=== PATIENT | female | born 1945 | race Caucasian/White ===

== ENCOUNTER 2017-01-18 11:28 | Emergency (ER) | payer OTHER ==
[2017-01-18 11:43] VITALS: TEMP 97.3; BMI 39.4
--- NOTE | 2017-01-18 11:51 | PDOC ---
History of Present Illness <Imtiaz Sharp - Last Filed: 01/18/17 14:06> - History of Present Illness Initial Comments: 01/18/17 13:16 The patient is a 71 year old female, with a significant past medical history of arthritis, who presents to the emergency department with pain to her right shoulder for 3 days. The patient states her pain radiates from her right shoulder to the lateral aspect of her right bicep. She reports pain with abduction and inability to raise her right arm above her head. She denies any trauma. She denies experiencing this shoulder pain in the past. The patient states she walks with a walker at baseline and reports taking 50mg of Toradol today with minimal alleviation of pain. She denies chest pain, shortness of breath, headache and dizziness. She denies fever, chills, nausea, vomit, diarrhea and constipation. She denies dysuria, frequency, urgency and hematuria. Allergies: PRINCESS inhibitors PCP - Dr. Connor <Lynette Nunez - Last Filed: 01/18/17 18:50> - General Chief Complaint: Pain, Acute Stated Complaint: Right arm pain/hx Arthritis Time Seen by Provider: 01/18/17 11:50 Past History - Past Medical History Anemia: No Asthma: No Cancer: No Cardiac Disorders: Yes (ANGINA) CVA: No COPD: Yes (DX 2005) CHF: No Dementia: No Diabetes: No GI Disorders: Yes (REFLUX) Disorders: Yes (FREQUENT UTI'S) HTN: Yes (DX 2005) Hypercholesterolemia: No Liver Disease: No Psychiatric Problems: Yes Seizures: No Thyroid Disease: No - Surgical History Abdominal Surgery: Yes Appendectomy: Yes (AT AGE 2) Cardiac Surgery: No Cholecystectomy: Yes (OPEN-1989') Lung Surgery: No Neurologic Surgery: No Orthopedic Surgery: Yes (LEFT ROTATOR CUFF-2013) - Immunization History Immunization Up to Date: Yes - Psycho/Social/Smoking Cessation Hx Anxiety: No Suicidal Ideation: No Smoking History: Never smoked Have you smoked in the past 12 months: No Number of Cigarettes Smoked Daily: 0 If you are a former smoker, when did you quit?: OVER 40 YRS AGO Information on smoking cessation initiated: No 'Breaking Loose' booklet given: 09/12/13 Hx Alcohol Use: No Drug/Substance Use Hx: No Substance Use Type: None Hx Substance Use Treatment: No <Imtiaz Sharp - Last Filed: 01/18/17 14:06> <Lynette Nunez - Last Filed: 01/18/17 18:50> - Past Medical History Allergies/Adverse Reactions: Allergies Allergy/AdvReac Type Severity Reaction Status Date / Time PRINCESS Inhibitors Allergy Severe TONGUE Verified 01/18/17 11:43 SWELLING, RASH Home Medications: Ambulatory Orders Aspirin Coated [Ecotrin -] 81 mg PO DAILY 09/11/13 Pramipexole Dihydrochloride [Mirapex -] 0.5 mg PO DAILY #0 tablet 09/14/13 Tramadol HCl 50 mg PO TID PRN 07/21/15 Meloxicam [Mobic -] 15 mg PO DAILY 10/19/15 Albuterol Sulfate Inhaler - [Ventolin HFA Inhaler -] 1 - 2 inh PO QID 04/17/16 Bisacodyl [Bisacodyl -] 5 mg PO ONCE 04/17/16 Acetaminophen [Tylenol .Regular Strength -] 650 mg PO Q4H PRN #0 tablet Atenolol/Chlorthalidone [Atenolol-Chlorthalidone 50-25] 0.5 tab PO DAILY #0 Budesonide/Formeterol Fumarate [SYMBICORT 160/4.5mcg -] 1 inh PO BID 01/18/17 Diphenhydramine [Benadryl -] 50 mg PO DAILY 01/18/17 Ondansetron [Zofran *Odt*] 8 mg SL TID #30 od.tablet 01/18/17 Oxycodone HCl/Acetaminophen [Percocet 5-325 mg Tablet] 1 tab PO Q6H #20 tablet MDD 4 01/18/17 Review of Systems - Review of Systems Able to Perform ROS?: Yes Comments:: 01/18/17 13:18 GENERAL/CONSTITUTIONAL: No fever or chills. No weakness. HEAD, EYES, EARS, NOSE AND THROAT: No change in vision. No ear pain or discharge. No sore throat. CARDIOVASCULAR: No chest pain or shortness of breath. RESPIRATORY: No cough, wheezing, or hemoptysis. GASTROINTESTINAL: No nausea, vomiting, diarrhea or constipation. GENITOURINARY: No dysuria, frequency, or change in urination. MUSCULOSKELETAL: (+) Right shoulder pain. No muscle swelling or pain. No neck or back pain. SKIN: No rash NEUROLOGIC: No headache, vertigo, loss of consciousness, or change in strength/ sensation. ENDOCRINE: No increased thirst. No abnormal weight change. HEMATOLOGIC/LYMPHATIC: No anemia, easy bleeding, or history of blood clots. ALLERGIC/IMMUNOLOGIC: No hives or skin allergy. <MayraLynette - Last Filed: 01/18/17 18:50> *Physical Exam - Vital Signs Last Vital Signs Temp Pulse Resp BP Pulse Ox 97.3 F L 63 18 161/87 98 01/18/17 11:41 01/18/17 11:41 01/18/17 11:41 01/18/17 11:41 01/18/17 11:41 <Imtiaz Sharp - Last Filed: 01/18/17 14:06> - Vital Signs Last Vital Signs Temp Pulse Resp BP Pulse Ox 97.3 F L 63 18 161/87 98 01/18/17 11:41 01/18/17 11:41 01/18/17 11:41 01/18/17 11:41 01/18/17 11:41 - Physical Exam Comments: 01/18/17 13:18 GENERAL: Awake, alert, and fully oriented, in no acute distress HEAD: No signs of trauma EYES: PERRLA, EOMI, sclera anicteric, conjunctiva clear ENT: Auricles normal inspection, hearing grossly normal, nares patent, oropharynx clear without exudates. Moist mucosa NECK: Normal ROM, supple, no lymphadenopathy, JVD, or masses LUNGS: Breath sounds equal, clear to auscultation bilaterally. No wheezes, and no crackles HEART: Regular rate and rhythm, normal S1 and S2, no murmurs, rubs or gallops ABDOMEN: Soft, nontender, normoactive bowel sounds. No guarding, no rebound. No masses EXTREMITIES: [+RUE: point tenderness to palpatation at the right shoulder joint. Pain with abduction of the RUE, inability to forward elevate the RUE. Internal Rotation to her side. no edema. No clubbing or cyanosis. No cords, erythema,] [LUE: Normal range of motion, no edema. No clubbing or cyanosis. No cords, erythema, or tenderness] NEUROLOGICAL: Cranial nerves II through XII grossly intact. Normal speech, normal gait with walker. SKIN: Warm, Dry, normal turgor, no rashes or lesions noted. <Lynette Nunez - Last Filed: 01/18/17 18:50> ED Treatment Course - RADIOLOGY Radiograph Interpretation: 01/18/17 18:50 Right shoulder Xray was read by Dr. Jackson at 13:32 Impression: No acute fracture, subluxation or bony abnormalities. <Lynette Nunez - Last Filed: 01/18/17 18:50> Medical Decision Making - Medical Decision Making 01/18/17 13:21 The patient is a 71 year old female who presents with right shoulder pain for 3 days. The patients medical history is significant for arthritis I will obtain RUE Xray to rule out any bony abnormalities such as acute fracture. If xrays appear normal, I will refer to orthopedist to obtain MRI r/o rotator cuff injury. <Lynette Nunez - Last Filed: 01/18/17 18:50> *DC/Admit/Observation/Transfer - Discharge Dispostion Admit: No - Attestations Physician Attestion: 01/18/17 11:51 I, Dr. Imtiaz Sharp, attest that this document has been prepared under my direction and personally reviewed by me in its entirety. I further attest, that it accurately reflects all work, treatment, procedures and medical decision -making performed by me. <Imtiaz Sharp - Last Filed: 01/18/17 14:06> - Attestations Scribe Attestion: 01/18/17 13:21 Documentation prepared by Lynette Nunez, acting as medical records secretary for Imtiaz Sharp MD <Lynette Nunez - Last Filed: 01/18/17 18:50> Diagnosis at time of Disposition: Bursitis Qualifiers: Bursitis location: shoulder Laterality: right Qualified Code(s): M75.51 - Bursitis of right shoulder - Discharge Dispostion Disposition: HOME Condition at time of disposition: Improved - Prescriptions Prescriptions: Oxycodone HCl/Acetaminophen [Percocet 5-325 mg Tablet] 1 tab PO Q6H #20 tablet MDD 4 Ondansetron [Zofran *Odt*] 8 mg SL TID #30 od.tablet - Referrals Referrals: Valente Connor MD [Primary Care Provider] - Vincent Alvarez MD [Staff Physician] - - Patient Instructions Printed Discharge Instructions: DI for Bursitis, Shoulder Tendinopathy Additional Instructions: Mrs Lyle see Dr Alvarez. Dont take tramadol and percocet, one or the other. Rest the shoulder as much as possible. Hope you feel better soon- Dr. Imtiaz Sharp
[2017-01-18] MEDS ORDERED: OXYCODONE/APAP 5/325MG COMBO TABLET PO ONE ×2 (12:47→14:34)
[2017-01-18] MEDS ORDERED: methylPREDNISolone ACET (DEPO) 80 MG/1 ML VIAL IM ONE ×2 (12:47→14:34)
[2017-01-18] MEDS ORDERED: ONDANSETRON *ODT* 4 MG TABLET SL ONE (12:48)
[2017-01-18] MEDS ORDERED: OXYCODONE/APAP 5/325MG COMBO TABLET ONE ×2 (13:22→14:46)
[2017-01-18] MEDS ORDERED: ONDANSETRON 8 MG TABLET (FP) PO ONE (13:22)
[2017-01-18] MEDS ORDERED: methylPREDNISolone NA SUCC 40 MG/1 ML VIAL ONE ×2 (13:23→14:47)
[2017-01-18 15:07] VITALS: BP 155/74; PULSE 70
== END 2017-01-18 15:06 | disposition home or self-care (01) ==
LOC: JER 11:28
PROC: 3E0233Z Introduction of Anti-inflammatory into Muscle, Percutaneous Approach (ICD-10-PCS; principal; 2017-01-18)
DX: M75.51 Bursitis of right shoulder (principal); M12.9 Arthropathy, unspecified; I10 Essential (primary) hypertension; J44.9 Chronic obstructive pulmonary disease, unspecified; K21.9 Gastro-esophageal reflux disease without esophagitis
CPT/HCPCS: 73030-TC-RT; 99283-25

== ENCOUNTER 2017-05-10 05:50 | Inpatient (IN) | payer OTHER ==
--- NOTE | 2017-05-09 09:22 | HP ---
Satellite H - Chief Complaint Chief Complaint: left knee pain - Past Medical History Allergies/Adverse Reactions: Allergies Allergy/AdvReac Type Severity Reaction Status Date / Time PRINCESS Inhibitors Allergy Severe TONGUE Verified 01/18/17 11:43 SWELLING, RASH Cardiovascular: Yes: HTN. No: AFIB, [place] - Current Medications Current Medications: Home Medications Medication Instructions Recorded Aspirin Coated [Ecotrin -] 81 mg PO DAILY 09/11/13 Tramadol HCl 50 mg PO TID PRN 07/21/15 Meloxicam [Mobic -] 15 mg PO DAILY 10/19/15 Albuterol Sulfate Inhaler - 1 - 2 inh PO QID 04/17/16 [Ventolin HFA Inhaler -] Bisacodyl [Bisacodyl -] 10 mg PO DAILY 04/17/16 Budesonide/Formeterol Fumarate 1 inh PO BID 01/18/17 [SYMBICORT 160/4.5mcg -] Albuterol Sulfate [Proair 90 mcg IH QID PRN 05/02/17 Respiclick] Docusate Sodium [Colace -] 100 mg PO BID 05/02/17 Fluticasone Prop 0.05% Nasal 1 - 2 spray NS DAILY 05/02/17 [Flonase -] Omeprazole 40 mg PO DAILY 05/02/17 Potassium Chloride 40 meq PO DAILY 05/02/17 Pramipexole Dihydrochloride 0.5 mg PO BID 05/02/17 [Mirapex -] Sodium Chloride [Saline Nose [place]] 89 ml NS DAILY 05/02/17 Valsartan 320 mg PO DAILY 05/02/17 Satellite Physical Exam - Physical Examination General Appearance: Well Nourished, Well Developed, Alert & Oriented x3 ENT: Clear Lung: Normal air movement Heart: Regular rate & rhythm Extremities: Other (left knee- + swelling, + ttp, decr rom, nvi xrays show severe tricompartmental djd) Neurological: Intact, Alert, Oriented Satellite Impression/Plan - Impression/Plan Impression: left knee djd Operative Procedure: left maria a tkr Date to be Performed: 05/10/17
[~2017-05-10 05:50] MED LIST: CELECOXIB 200 MG CAPSULE PO ONE; GABAPENTIN 300 MG CAPSULE (FP) PO ONE; oxyCODONE HCL 10 MG SUSTAINED ACTING TABLET PO ONE
[2017-05-10] MEDS ORDERED: GABAPENTIN 300 MG CAPSULE (FP) ONE (06:26)
[2017-05-10] MEDS ORDERED: CELECOXIB 200 MG CAPSULE ONE (06:26)
[2017-05-10] MEDS ORDERED: oxyCODONE HCL 10 MG SUSTAINED ACTING TABLET ONE (06:26)
[2017-05-10] MEDS ORDERED: SODIUM CHLORIDE 0.9% P/F 10 ML VIAL IJ ONE (06:44)
[2017-05-10] MEDS ORDERED: DEXAMETHASONE SOD PHOSPHATE/PF 10 MG/ML SDV ONE (06:44)
[2017-05-10] MEDS ORDERED: ROPIVACAINE HCL 0.5% 30ML VIAL ONE (06:44)
[2017-05-10] MEDS ORDERED: MIDAZOLAM HCL 2 MG/2 ML SINGLE DOSE VIAL ONE (06:44)
[2017-05-10 07:05] VITALS: BMI 39.3
[2017-05-10] MEDS ORDERED: ceFAZolin SODIUM 1 GM VIAL ONE (07:16)
[2017-05-10] MEDS ORDERED: VANCOMYCIN 1,000 MG VIAL (RESTRICTED TO ID ONLY) ONE (07:17)
[2017-05-10] MEDS ORDERED: CEFAZOLIN 2 GM in DEXTROSE 5%-WATER - 50 ML IVPB ONE (08:00)
[2017-05-10] MEDS ORDERED: TRANEXAMIC ACID 1000 MG/10 ML VIAL IVPUSH ONE (10:00)
[2017-05-10] MEDS ORDERED: ONDANSETRON 4 MG/2 ML VIAL IVPB PRN (10:48)
[2017-05-10] MEDS ORDERED: MAG HYDROX/AL HYDROX/SIMETH 30 ML UNIT-DOSE CUP PO PRN (10:48)
[2017-05-10] MEDS ORDERED: MAGNESIUM HYDROX 2400MG/30ML ORAL SUSPENSION 30 ML CUP PO PRN (10:48)
[2017-05-10] MEDS ORDERED: PATIENT'S OWN MEDICATION (NON-FORMULARY) (Albuterol Sulfate [Proair Respiclick] 90 MCG) IH PRN (10:49)
--- NOTE | 2017-05-10 10:52 | OP ---
Operative Note - Note: Operative Date: 05/10/17 (sil) Pre-Operative Diagnosis: left knee djd Operation: left maria a tkr, MCL reconstruction Post-Operative Diagnosis: Same as Pre-op Surgeon: Vincent Alvarez Polysilicon Preparation Worker: Amilcar Vo Anesthesiologist/REIMBURSEMENT MANAGER: Josee Davalos Anesthesia: Spinal, Local Specimens Removed: bone fragments Estimated Blood Loss (mls): 50 (tourniquet) Operative Report Dictated: Yes
[2017-05-10] MEDS ORDERED: LACTATED RINGERS SOLUTION 1,000 ML IV SCH (11:00)
[2017-05-10] MEDS ORDERED: oxyCODONE HCL 5 MG TABLET ONE (12:28)
[2017-05-10] MEDS: oxyCODONE HCL 5 MG TABLET PO PRN ×3 (12:30→19:38)
[2017-05-10] MEDS ORDERED: oxyCODONE HCL 5 MG TABLET PO PRN (13:12)
[2017-05-10] MEDS ORDERED: ALBUTEROL SO4 6.7 GM HFA INHALER IH PRN (13:28)
[2017-05-10] MEDS ORDERED: CEFAZOLIN 2 GM/D5W 50 ML IVPB SCH (16:00)
[2017-05-10] MEDS: CEFAZOLIN 2 GM/D5W 50 ML IVPB SCH (16:00)
[2017-05-10] MEDS: ACETAMINOPHEN 325 MG TABLET (FP) PO SCH (19:39)
[2017-05-10] MEDS ORDERED: PT OWN MED DRAWER 7, Y5N ONE (21:20)
[2017-05-10] MEDS: oxyCODONE HCL 10 MG SUSTAINED ACTING TABLET PO SCH (21:35)
[2017-05-10] MEDS: SENNOSIDES/DOCUSATE COMBO (SENNA PLUS) TABLET (UD) PO SCH (21:35)
[2017-05-10] MEDS: GABAPENTIN 300 MG CAPSULE (FP) PO SCH (21:35)
[2017-05-10] MEDS: PRAMIPEXOLE DIHYDROCHLORIDE 0.25 MG TABLET PO SCH (21:36)
[2017-05-10] MEDS: BUDESONIDE/FORMETEROL FUMARATE 160/4.5 mcg INHALER IH SCH (21:37)
[2017-05-10] MEDS ORDERED: PRAMIPEXOLE DIHYDROCHLORIDE 0.5 MG TABLET PO SCH (22:00)
[2017-05-11] MEDS: CEFAZOLIN 2 GM/D5W 50 ML IVPB SCH (00:14)
[2017-05-11] MEDS: oxyCODONE HCL 5 MG TABLET PO PRN ×4 (01:11→16:08)
[2017-05-11] MEDS: ACETAMINOPHEN 325 MG TABLET (FP) PO SCH ×5 (01:12→21:25)
[2017-05-11 08:20] LABS: MEAN CELL VOLUME 85.3 fl (80-96); MEAN PLT VOLUME 8.9 fl (7.5-11.1); PLATELET COUNT 205 K/MM3 (134-434); RDW 14.2 % (11.6-15.6)
[2017-05-11] MEDS: ASPIRIN 325 MG TABLET PO SCH (08:35)
[2017-05-11] MEDS: MULTIVITAMINS (DAILY MVI) TABLET (FP) PO SCH (09:38)
[2017-05-11] MEDS: POTASSIUM CHLORIDE TABS 20 MEQ TABLET.ER (FP) PO SCH (09:38)
[2017-05-11] MEDS: GABAPENTIN 300 MG CAPSULE (FP) PO SCH ×2 (09:38→21:25)
[2017-05-11] MEDS: PRAMIPEXOLE DIHYDROCHLORIDE 0.25 MG TABLET PO SCH ×2 (09:39→21:26)
[2017-05-11] MEDS: oxyCODONE HCL 10 MG SUSTAINED ACTING TABLET PO SCH ×2 (09:39→21:26)
[2017-05-11] MEDS: SENNOSIDES/DOCUSATE COMBO (SENNA PLUS) TABLET (UD) PO SCH ×2 (09:40→21:26)
[2017-05-11] MEDS: VALSARTAN 160 MG TABLET (UD) PO SCH (09:40)
[2017-05-11] MEDS: PANTOPRAZOLE 40 MG TABLET (FP) PO SCH (09:41)
[2017-05-11] MEDS: FLUTICASONE PROP 0.05% 16 GM NASAL SPRAY NS SCH (09:41)
[2017-05-11] MEDS: BUDESONIDE/FORMETEROL FUMARATE 160/4.5 mcg INHALER IH SCH ×3 (09:41→21:32)
[2017-05-11] MEDS ORDERED: PT OWN MED DRAWER 7, Y5N ONE ×2 (09:47→21:16)
--- NOTE | 2017-05-11 10:11 | PN ---
Progress Note (short form) - Note Progress Note: 71F POD1 s/p L TKR under spinal anesthetic with adductor canal and selective tibial blocks for post operative pain relief. Pt states pain is well controlled , AVSS, reports no anesthetic complications. Sensory and motor function intact b /l lower extremities.
--- NOTE | 2017-05-11 11:59 | PN ---
Progress Note (short form) - Note Progress Note: Ortho Pt seen and examined s/p left maria a tkr pod #1 Selected Entries 05/11/17 06:16 Temperature 98.4 F Pulse Rate 87 Respiratory 20 Rate Blood Pressure 156/57 Laboratory Tests 05/11/17 07:00 WBC 10.0 Hgb 10.5 L Hct 30.9 L Plt Count 205 Dressing c/d/i,calf soft, nt rom 0-40, nvi a/p Hinged knee brace applied, only for ambulation PT dvt ppx pain control d/c home tomorrow if stable
[2017-05-12] MEDS: ACETAMINOPHEN 325 MG TABLET (FP) PO SCH ×2 (02:13→07:41)
[2017-05-12 05:16] VITALS: BP 155/51; PULSE 89; TEMP 100
[2017-05-12] MEDS: oxyCODONE HCL 5 MG TABLET PO PRN (05:35)
[2017-05-12] MEDS: ASPIRIN 325 MG TABLET PO SCH (07:41)
--- NOTE | 2017-05-12 08:44 | PN ---
Progress Note (short form) - Note Progress Note: Ortho Pt seen and examined s/p left maria a tkr pod #2 Selected Entries 05/12/17 05:14 Temperature 100.0 F H Pulse Rate 89 Respiratory 20 Rate Blood Pressure 155/51 Laboratory Tests 05/11/17 07:00 WBC 10.0 Hgb 10.5 L Hct 30.9 L Plt Count 205 Dressing c/d/i,calf soft, nt rom 0-40, nvi a/p Hinged knee brace applied, only for ambulation PT dvt ppx pain control d/c home today f/u in 1 week
--- NOTE | 2017-05-12 08:45 | DS ---
Physical Examination Vital Signs: Vital Signs Temperature 100.0 F H 05/12/17 05:14 Pulse Rate 89 05/12/17 05:14 Respiratory Rate 20 05/12/17 05:14 Blood Pressure 155/51 05/12/17 05:14 O2 Sat by Pulse Oximetry (%) 92 L 05/12/17 07:52 Labs: CBC, BMP 05/11/17 07:00 Discharge Summary Reason For Visit: OSTEOARTHRITIS Procedures: Principal: s/p left maria a tkr Hospital Course: admitted for elective left maria a tkr, uneventful post-op, stable for d/c Condition: Good - Instructions Diet, Activity, Other Instructions: Post-op Instructions-Total Knee Replacement Call the office for a follow-up appointment in 1 week - [phone] Aspirin 325mg daily for 6 weeks. Pain medication was sent into your pharmacy. Apply Graduated Compression Stockings (TEDs) to both lower extremities- remove daily for hygiene ONLY Apply Sequential Compression Device (SCDs) to both Lower extremities remove for PT and hygiene ONLY Apply cold packs to affected area for 15 minutes every 2 hours. Physical Therapist will come to your home for the first 5 days. You will be set up with outpatient PT at your first post-operative visit. Patient may ambulate as tolerated-encourage self care (at least every 2-3 hours while awake) with walker or cane Maintain Aquacel (waterproof) dressing to operative wound (will be removed by surgeon at first office visit) Shower with Aquacel dressing in place-if Aquacel integrity compromised, remove and apply dry sterile dressing and notify Orthopedist. DO NOT SHOWER unless Orthopedists approves without Aquacel dressing CONTACT THE OFFICE FOR ANY CHANGE IN YOUR CONDITION (for example-fever greater than 102 degrees,excessive bleeding from operative site, purulent drainage, severe swelling or pain) GO TO THE EMERGENCY ROOM IF THERE IS A MEDICAL EMERGENCY Knee Precautions: * Keep a rolled towel under affected heel while in bed or chair (to keep knee in extension) * Keep affected leg elevated except during mealtimes * DO NOT PLACE PILLOW UNDER AFFECTED KNEE * If you have any questions, please do not hesitate to call the office - [phone]. Referrals: Vincent Alvarez MD [Staff Physician] - Disposition: VNS/HOME HEALTH CARE - Home Medications Comprehensive Discharge Medication List: Ambulatory Orders Tramadol HCl 50 mg PO TID PRN 07/21/15 Meloxicam [Mobic -] 15 mg PO DAILY 10/19/15 Budesonide/Formeterol Fumarate [SYMBICORT 160/4.5mcg -] 1 inh PO BID 01/18/17 Albuterol Sulfate [Proair Respiclick] 90 mcg IH QID PRN 05/02/17 Docusate Sodium [Colace -] 100 mg PO BID 05/02/17 Fluticasone Prop 0.05% Nasal [Flonase -] 1 - 2 spray NS DAILY 05/02/17 Omeprazole 40 mg PO DAILY 05/02/17 Potassium Chloride 40 meq PO DAILY 05/02/17 Pramipexole Dihydrochloride [Mirapex -] 0.5 mg PO BID 05/02/17 Sodium Chloride [Saline Nose [place]] 89 ml NS DAILY 05/02/17 Valsartan 320 mg PO DAILY 05/02/17 Aspirin [ASA -] 325 mg PO DAILY@0800 tablet 05/10/17 Naproxen Sodium [Naproxen Sodium ER] 500 mg PO BID 05/10/17 Oxycodone HCl/Acetaminophen [Percocet 5-325 mg Tablet] 1 - 2 tab PO Q6H #50 tab MDD 8 05/10/17
[2017-05-12] MEDS: PRAMIPEXOLE DIHYDROCHLORIDE 0.25 MG TABLET PO SCH (09:16)
[2017-05-12] MEDS: GABAPENTIN 300 MG CAPSULE (FP) PO SCH (09:16)
[2017-05-12] MEDS: POTASSIUM CHLORIDE TABS 20 MEQ TABLET.ER (FP) PO SCH (09:17)
[2017-05-12] MEDS: MULTIVITAMINS (DAILY MVI) TABLET (FP) PO SCH (09:17)
[2017-05-12] MEDS: PANTOPRAZOLE 40 MG TABLET (FP) PO SCH (09:17)
[2017-05-12] MEDS: FLUTICASONE PROP 0.05% 16 GM NASAL SPRAY NS SCH (09:18)
[2017-05-12] MEDS: VALSARTAN 160 MG TABLET (UD) PO SCH (09:18)
[2017-05-12] MEDS: SENNOSIDES/DOCUSATE COMBO (SENNA PLUS) TABLET (UD) PO SCH (09:18)
[2017-05-12] MEDS: oxyCODONE HCL 10 MG SUSTAINED ACTING TABLET PO SCH (09:19)
[2017-05-12] MEDS: BUDESONIDE/FORMETEROL FUMARATE 160/4.5 mcg INHALER IH SCH (09:19)
[2017-05-12 09:46] LABS: MCH 28.7 pg (25.7-33.7); MCHC 34.3 g/dl (32.0-36.0); MEAN CELL VOLUME 83.7 fl (80-96); MEAN PLT VOLUME 8.6 fl (7.5-11.1); PLATELET COUNT 212 K/MM3 (134-434); RDW 14.5 % (11.6-15.6); WHITE BLOOD COUNT 13.9 K/mm3 (4.0-10.8)
--- NOTE | 2017-05-12 11:04 | OP ---
DATE OF OPERATION: 05/10/2017 PREOPERATIVE DIAGNOSIS: Degenerative joint disease, left knee. POSTOPERATIVE DIAGNOSIS: Degenerative joint disease, left knee. PROCEDURE: Left total knee replacement with robotic-assisted navigation (MAKOplasty) and repair of left medial collateral ligament. SURGICAL ATTENDING: Vincent Alvarez MD CONTACT WORKER LITHOGRAPHY: AUSTYN Castellano ANESTHESIA: Regional and spinal. CLOSURE: Triathlon cemented knee system with a 3 femur, 3 tibia, 11 TS poly, and a 29 patella, No. 1 Vicryl fascia, 0 and 2-0 subcutaneous, 3-0 Monocryl subcuticular with skin glue for skin, 4-0 undyed Vicryl for pin sites. A 5.5 Corkscrew anchor with FiberWire for MCL. ESTIMATED BLOOD LOSS: Negligible. TOURNIQUET TIME: Approximately 110 minutes. COMPLICATIONS: None. CONDITION: To recovery in stable condition. DESCRIPTION OF OPERATIVE PROCEDURE: Patient was taken to the operating room on May 10, 2017. Spinal and regional anesthetic were administered by the anesthesiologist. IV Kefzol and TXA were administered prophylactically prior to the case. A well-padded pneumatic tourniquet was placed on the left proximal thigh. The left lower extremity was prepped and draped in the usual sterile fashion. The leg was exsanguinated with an Esmarch bandage. A tourniquet was inflated to 275 mmHg. A 12- to 15-cm longitudinal midline incision centered over the patella was incised. Hemostasis achieved . Sharp dissection was carried down to the level of the extensor mechanism procedure. A medial parapatellar arthrotomy was then made with the patella inverted and the knee was flexed up. Subperiosteal dissection was done on the anteromedial proximal tibia until the knee was able to be brought forward. This was facilitated by taking the ACL, PCL and meniscal remnants. Check points were both on the femur and the tibia. Two bicortical pins were placed in the distal femur anterior to posterior through the previously made incision. They were done unicortically until they hit the second cortex. Two bicortical pins were placed through a small stab incision one handbreadth distal to the tibial tubercle through small stab incisions. Both these sets of pins were attached to navigation arrays. The knee was registered with the navigational device with central rotation of the hip, medial and lateral malleoli and multiple points both on the femur and the tibia. Excellent registration was obtained and was confirmed by "popping the bubbles." The knee was thoroughly inspected to remove all osteophytes. The knee was in marked valgus prior to the procedure. After removing the osteophytes, some soft tissue releases were able to get the knee to a more neutral position. The virtual positions of the components on the navigation device were assessed and were optimized and manipulated in order to ensure adequate balancing in both flexion and extension and medially and laterally. During this, the MCL, which was elevated in subperiosteal dissection, became either stretched or partially detached. The robot was put into the field and the appropriate cuts were made on both the femur and on the tibia. The box was then made in the femur as well. A trial femoral component was applied and achieved good [id number] fit. The appropriate tibial base plate, which was a number 3 with an 11 TS trial, was applied and was found to have good range of motion. However, there was some opening when the knee was flexed due to the MCL being deficient. It was thus decided to use the TS insert. The real components were then cemented into place using modern generation cementing techniques with antibiotic cement. Pressurization was made in extension. After the cement was hardened, the trial insert was removed. The knee was thoroughly inspected to remove all excess cement and the real TS implant was placed. Prior to this, the patella was osteotomized at its appropriate level and a lollipop was used to drill the lug holes in the patella, and a trial patella was applied. Range of motion was again found to be deficient with the MCL but had good tracking throughout flexion and extension of the patella. The TS implant was applied and clipped into place. The knee was thoroughly irrigated with antibiotic. After the medial parapatellar arthrotomy was closed and the periosteum was repaired inferiorly, the MCL had more tension on it but was still deficient. It was thus decided to augment the MCL. Blunt dissection was at the insertion of the semitendinosus tendon. This was stripped from its insertion, left inserted distally, and was stripped up proximally and was brought more anteriorly. This band was then fixated to the medial femoral condyle by use of a Corkscrew anchor and No. 2 FiberWire suture, which was woven through the tendon. This created a new MCL medially. Range of motion of the knee revealed excellent tracking of the patella and flexion from 0 to 120 degrees with good stability throughout. The knee was pulse irrigated with antibiotic. Prior to closing the arthrotomy, vancomycin powder was placed in the knee joint. The subcutaneous was vigorously and copiously irrigated with antibiotic irrigation and then dried. The soft tissue was then closed in layers with 0 and 2-0 Vicryl subcutaneous and 3-0 Monocryl subcuticular with skin glue for the skin, 4-0 undyed Vicryl for the pin sites. The pins were removed after the components were cemented. Sterile pressure dressing followed by a knee immobilizer was applied on the left lower extremity. X-rays revealed good position of the components. The patient was transferred to the recovery room in stable condition. No complications. Estimated blood loss was negligible. Tourniquet time was approximately 110 minutes. Beatriz SÁNCHEZ/[id number]
--- NOTE | 2017-05-12 13:15 | PATH ---
Surgical Pathology Report Patient Name: ROSELIA GARCIA Med. Rec. #: [id number] /Age/Gender: 1945 (Age: 71) / F Account: [id number] Location: [facility], 1928–1983 MED-SURG Taken: 05/10/2017 Received: 05/10/2017 Reported: 05/12/2017 Physicians: Vincent Alvarez M.D. Specimen(s) Received BONE LEFT KNEE Clinical History Left knee osteoarthritis Final Diagnosis BONE AND SOFT TISSUE, LEFT KNEE, REPLACEMENT: DEGENERATIVE JOINT DISEASE. Electronically Signed Andreas Osorio M.D. Gross Description Received in formalin labeled "bone left knee," is an 8.8 x 7.2 x 1.9 cm aggregate of shabazz, irregular portions of bone. The tibial plateau measures 6.8 x 4.8 x 1.4 cm. There is a 3.4 cm greatest dimension area of eburnation present. The remaining articular surfaces are shabazz-yellow and diffusely granular. The underlying trabecular bone is yellow and hard. Dishwasher Busser sections are submitted in one cassette, following decalcification. 05/11/2017 [facility]05/11/2017
== END 2017-05-12 13:32 | disposition home health service (06) | DRG 470 ==
LOC: FM/S 05:50
PROVIDERS: ADMIT Orthopaedic Surgery; ATTEND Orthopaedic Surgery
PROC: 8E0Y0CZ Robotic Assisted Procedure of Lower Extremity, Open Approach (ICD-10-PCS; 2017-05-10)
PROC: 0SRD0J9 Replacement of Left Knee Joint with Synthetic Substitute, Cemented, Open Approach (ICD-10-PCS; principal; 2017-05-10 08:37)
DX: M17.12 Unilateral primary osteoarthritis, left knee (principal); I10 Essential (primary) hypertension; E66.8 Other obesity; Z68.39 Body mass index [BMI] 39.0-39.9, adult
CPT/HCPCS: 36415; 73560-TC-LT; 85027; 88304-TC; 88311-TC; 94010; 94760; 97116-GP; 97162-GP

== ENCOUNTER 2018-11-09 18:39 | Inpatient (IN) | payer OTHER ==
[2018-11-09 18:57] VITALS: BMI 36.5
--- NOTE | 2018-11-09 20:02 | PDOC ---
Attending Attestation - HPI HPI: 11/09/18 20:37 The patient is a 73 year old female with a past medical history of HTN and asthma here today for evaluation of rectal bleeding. The patient was seen for a similar complaint in 04/08 and was told to follow up with a air cargo ground operations supervisor but did not. The patient reports that she has had intermittent episodes of bright red rectal bleeding since 04/08 and notes 2 episodes of bleeding today. She reports no pain but since 11/03/18 reports that she has been dizzy and lightheaded while walking. Patient denies headache. Denies fever, chills. Denies chest pain, shortness of breath. Denies nausea, vomiting, diarrhea, abdominal pain. Allergies: PRINCESS inhibitors PCP: Valente Connor - Physicial Exam PE: 11/09/18 20:37 Constitutional: Awake, alert, oriented. No acute distress. Head: Normocephalic. Atraumatic Eyes: +pale conjunctiva. PERRL. EOMI. ENT: +pale mucous membranes. Posterior pharynx without exudates or erythema. Uvula midline. Neck: Supple. Full ROM. No lymphadenopathy. Cardiovascular: +tachycardia. Regular rhythm. S1, S2 regular. Distal pulses are 2+ and symmetric. Pulmonary/Chest: No evidence of respiratory distress. Clear to auscultation bilaterally No wheezing, rales or rhonchi. Abdominal: Soft and non-distended. There is no tenderness. No rebound, guarding or rigidity. No organomegaly. No palpable masses. Good bowel sounds. Back: No CVA tenderness. Musculoskeletal: +trace edema of ankles. No cyanosis. No clubbing. Full range of motion in all extremities. No calf tenderness. Radial/pedal pulses are intact and 2+ bilaterally Skin: Skin is warm and dry. No petechiae. No purpura. Neurological: Alert and oriented to person, place, and time. Cranial nerves II -XII are grossly intact. Normal speech. Strength is grossly symmetric. No sensory deficits. Psychiatric: Good eye contact. Normal interaction, affect and behavior. - Medical Decision Making 11/09/18 20:37 Documentation prepared by MAGY Gutierrez, acting as medical case worker for Marti Velasquez DO. <Richardson Salomon - Last Filed: 11/09/18 20:37> - Resident Resident Name: Sadloo,Misha - ED Attending Attestation I have performed the following: I have examined & evaluated the patient, The case was reviewed & discussed with the resident, I agree w/resident's findings & plan, Exceptions are as noted - Medical Decision Making 11/09/18 20:02 I, Dr. Marti Velasquez, DO, attest that this document has been prepared under my direction and personally reviewed by me in its entirety. I further attest, that it accurately reflects all work, treatment, procedures and medical decision -making performed by me. 11/09/18 20:26 a/p: 73yo female with hx of rectal bleeding and diverticular disease with LGIB -states intermittently bleeding since March- has not followed up with GI for a colonoscopy -states over the last week increase in bleeding and now lightheaded when she stand -no cp/sob/abd pain -no n/v -no dysuria -concern for LGIB from diverticular disease - no suspicion for ischemic colitis given no abd pain -prior ct showed diverticulitis and a poss fistula to the uterus -no abd pain, no fevers -will send labs -will discuss with GI pending h/h -admits to ibuprofen 2 days ago x 1 dose, but no epigastric pain or melena -no antiplts, no anticoags -no falls, no other complaints. -PMD Dr. Connor 11/09/18 21:24 h/h stable case discussed with Dr. Leo who will see the patient in consult nanda on labs pt will need obs for LGIB 11/09/18 21:42 pt with new lbbb call placed to dr. cannon trop negative pt denies cp changes compared to march 2018 11/09/18 22:[address] frey who accepts pt to service 11/09/18 22:07 resident discussed the case with Dr. Cannon who will see the patient in consult and states pt does not need tele since she is cp free, trop neg dr leo has seen the patient, no active bleeding at this time <Marti Velasquez - Last Filed: 11/09/18 22:08> *DC/Admit/Observation/Transfer - Discharge Dispostion Decision to Admit order: Yes <Marti Velasquez - Last Filed: 11/09/18 22:08> Diagnosis at time of Disposition: BRBPR (bright red blood per rectum), LGI bleed, New onset left bundle branch block (LBBB) - Discharge Dispostion Condition at time of disposition: Fair - Referrals Referrals: Valente Connor MD [Primary Care Provider] - - Patient Instructions - Post Discharge Activity Heart Score/ECG Review - ECG Intrepretation Comment:: 11/09/18 21:41 sinus at 94, l axis, new lbbb compared to old, abnl ekg <Marti Velasquez - Last Filed: 11/09/18 22:08>
[2018-11-09] MEDS ORDERED: SODIUM CHLORIDE 0.9% 1000 ML INFUS.BAG IV ONE (20:17)
[2018-11-09 20:47] LABS: EOS % 2.3 % (0-4.5); HEMATOCRIT 35.4 % (32.4-45.2); HEMOGLOBIN 12.1 GM/dL (10.7-15.3); LYMPH % 19.3 % (8-40); MCH 28.4 pg (25.7-33.7); MCHC 34.2 g/dl (32.0-36.0); MEAN PLT VOLUME 8.4 fl (7.5-11.1); MONO % 6.5 % (3.8-10.2); NEUT % 70.9 % (42.8-82.8); PLATELET COUNT 271 K/MM3 (134-434); RBC 4.27 M/mm3 (3.60-5.2); RDW 16.7 % (11.6-15.6); WHITE BLOOD COUNT 10.7 K/mm3 (4.0-10.0)
--- NOTE | 2018-11-09 20:49 | PDOC ---
History of Present Illness - General Chief Complaint: Lightheaded Stated Complaint: RECTAL BLEED Time Seen by Provider: 11/09/18 19:22 History Source: Patient Exam Limitations: No Limitations - History of Present Illness Initial Comments: 11/09/18 20:39 73 yo female pmh of HTN, asthma and admission in 03/2018 for BRBPR, presents to ED with dizziness, lightheadedness and painless BRBPR. Pt states since DC in 2017 she has had intermittent blood with bowel movements and did not follow up with GI and has never had a colonoscopy. Denies AC and not currently on ASA. Pt states she noted increased dizziness and lightheadedness especially with ambulation since 11/03/2018 but today noted 2 episodes of excessive BRBPR filling the toilet and leaking from the anus with well formed stools and no pain with bowel movements. Pt denies abdominal pain, CP, SOB, back pain, F/C/N/V , changes in urniary habits. Pt saw PCP (Nikolas) yesterday, blood was drawn but did not receive results Past History - Past Medical History Allergies/Adverse Reactions: Allergies Allergy/AdvReac Type Severity Reaction Status Date / Time PRINCESS Inhibitors Allergy Severe TONGUE Verified 11/09/18 18:48 SWELLING, RASH Home Medications: Ambulatory Orders Alprazolam 0.25 mg PO TID 11/09/18 Amoxicillin - [Amoxicillin 500mg Capsule -] 500 mg PO Q8H 11/09/18 Budesonide/Formeterol Fumarate [SYMBICORT 160/4.5mcg -] 1 inh PO BID 11/09/18 Fluticasone Prop 0.05% Nasal [Flonase -] 60 spray NS DAILY 11/09/18 Olmesartan Medoxomil [Benicar (Nf)] 40 mg PO DAILY 11/09/18 Oxymetazoline HCl [Nasal Sturgis] 30 ml NS DAILY 11/09/18 Potassium Chloride [K-Tab ER] 40 meq PO DAILY 11/09/18 Triamterene/Hydrochlorothiazid [Triamterene-Hctz 37.5-25 mg Cp] 1 each PO DAILY 11/09/18 Anemia: No Asthma: Yes Cancer: No Cardiac Disorders: Yes (ANGINA) CVA: No COPD: Yes CHF: No Dementia: No Diabetes: No GI Disorders: Yes (gerd) Disorders: Yes (FREQUENT UTI'S) HTN: Yes Hypercholesterolemia: Yes Liver Disease: No Psychiatric Problems: Yes Seizures: No Thyroid Disease: No - Surgical History Abdominal Surgery: Yes Appendectomy: Yes (AT AGE 2) Cardiac Surgery: No Cholecystectomy: Yes (OPEN-) Lung Surgery: No Neurologic Surgery: No Orthopedic Surgery: Yes (LEFT ROTATOR CUFF-2013) - Immunization History Immunization Up to Date: Yes - Suicide/Smoking/Psychosocial Hx Smoking History: Unknown if ever smoked Have you smoked in the past 12 months: No Number of Cigarettes Smoked Daily: 0 If you are a former smoker, when did you quit?: OVER 40 YRS AGO 'Breaking Loose' booklet given: 09/12/13 Hx Alcohol Use: No Drug/Substance Use Hx: No Substance Use Type: None Hx Substance Use Treatment: No Review of Systems - Review of Systems Constitutional: No: Chills, Fever Respiratory: No: Shortness of Breath Cardiac (ROS): Yes: Lightheadedness. No: Chest Pain, Palpitations ABD/GI: Yes: Rectal Bleeding (BRBPR). No: Blood Streaked Bowels, Constipated, Diarrhea, Nausea, Vomiting : No: Burning, Dysuria, Discharge, Frequency, Flank Pain, Hematuria Musculoskeletal: No: Back Pain Integumentary: No: Pallor Neurological: Yes: Weakness (generalized). No: Headache, Numbness, Paresthesia *Physical Exam - Vital Signs Last Vital Signs Temp Pulse Resp BP Pulse Ox 97.4 F L 103 H 18 128/57 L 98 11/09/18 18:40 11/09/18 18:40 11/09/18 18:40 11/09/18 18:40 11/09/18 18:40 - Physical Exam General Appearance: Yes: Nourished, Appropriately Dressed. No: Apparent Distress HEENT: positive: EOMI Neck: positive: Supple Respiratory/Chest: positive: Chest Tender, Lungs Clear, Normal Breath Sounds Cardiovascular: positive: Regular Rhythm, S1, S2, Tachycardia. negative: Edema , JVD, Murmur Vascular Pulses: Dorsalis-Pedis (R): 4+, Doralis-Pedis (L): 4+ Gastrointestinal/Abdominal: positive: Flat, Soft. negative: Pulsatile Mass, Distended, Guarding, Rebound, Tenderness Rectal Exam: positive: heme positive stool. negative: hemorrhoids Musculoskeletal: negative: CVA Tenderness Extremity: positive: Normal Capillary Refill, Normal Inspection Integumentary: positive: Dry, Warm, Pale Neurologic: positive: Fully Oriented, Alert, Normal Mood/Affect, Normal Response Moderate Sedation - Procedure Monitoring Vital Signs: Procedure Monitoring Vital Signs Temperature 97.4 F L 11/09/18 18:40 Pulse Rate 103 H 11/09/18 18:40 Respiratory Rate 18 11/09/18 18:40 Blood Pressure 128/57 L 11/09/18 18:40 O2 Sat by Pulse Oximetry (%) 98 11/09/18 18:40 ED Treatment Course - LABORATORY CBC & Chemistry Diagram: 11/09/18 20:00 11/09/18 20:00 - Medications Given in the ED: ED Medications Discontinued Medications Generic Name Dose Route Start Last Admin Trade Name Freq PRN Reason Stop Dose Admin Sodium Chloride 500 ml 11/09/18 20:17 11/09/18 20:34 Normal Saline - IV 11/09/18 20:18 500 ml ONCE ONE Administration Medical Decision Making - Medical Decision Making 11/09/18 21:02 73 yo female presents to ED with excessive BRBPR for the last 1 hour and 1 week of lightheadedness. Pt also admits to intermittent blood per rectum since 2018 when she was admitted for GI bleed, no colonoscopy or GI follow up. Vitals: tachy at 103 otherwise wnl Patient appears comfortable, NAD, AOX3 however excessive BRBPR seen on exam without active leak DDX INLT: fistula with active bleed, diverticular bleed, hemorrhoids, colon ca CTA abdomen pelvis ordered 11/09/18 22:08 Pt found to have new left BBB on EKG without CP, palpitations or SOB. Trop negative Dr. Lopez consulted, states since pt does not have CP and trops negative, pt does not require Tele at this time. States serial trops should be done Dr. Leo consulted, saw pt in the ED, states no bleeding per rectum on his exam H/H wnl Cr and BUN elevated, pt has DARREN, given a total of 1500cc NS in the ED, will repeat CMP with trops and CBC CTA ab/pel DC due to DARREN, Dr. Leo aware and agrees Pt accepted for admission by Hospitalist for further workup and care *DC/Admit/Observation/Transfer Diagnosis at time of Disposition: BRBPR (bright red blood per rectum), LGI bleed, New onset left bundle branch block (LBBB) - Referrals - Patient Instructions - Post Discharge Activity
[2018-11-09 21:12] LABS: INR 1.09 (0.83-1.09); PROTHROMBIN TIME (PATIENT) 12.9 SEC (9.7-13.0)
[2018-11-09 21:14] LABS: ACTIVATED PTT 28.5 SECONDS (25.2-36.5)
[2018-11-09 21:20] LABS: ALBUMIN 3.6 g/dl (3.4-5.0); ALK PHOS 88 U/L (45-117); ANION GAP 9 MMOL/L (8-16); BILIRUBIN,TOTAL 0.3 mg/dL (0.2-1); BLOOD UREA NITROGEN 42 mg/dL (7-18); CALCIUM 8.3 mg/dL (8.5-10.1); CHLORIDE 104 mmol/L (98-107); CO2 25 mmol/L (21-32); CREATININE 1.9 mg/dL (0.55-1.3); GLUCOSE,RANDOM 99 mg/dL (74-106); POTASSIUM 4.6 mmol/L (3.5-5.1); SGOT/AST 17 U/L (15-37); SGPT/ALT 16 U/L (13-61); SODIUM 138 mmol/L (136-145); TOT PROT 7.8 g/dl (6.4-8.2)
[2018-11-09] MEDS ORDERED: SODIUM CHLORIDE 1,000 ML IV STA (21:22)
--- NOTE | 2018-11-09 22:04 | CON.GI ---
Consult Consult Specialty:: Gastroenterology Referred by:: Marti Velasquez DO Reason for Consultation:: Hematochezia - History of Present Illness Chief Complaint: Painless rectal bleeding History of Present Illness: 73F describes episodic rectal bleeding for the past few months. Today the bleeding was more voluminous than usual. She denies abdominal or rectal pain. She has chronic constipaton. 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 He advised colonoscopy as an outpatient but she never followed up. She has never had an EGD or a colonoscopy. No FH of GI cancer. 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) Hepatobiliary: Yes: Cholelithiasis (s/p GB surgery) Rheumatology: Yes: Other (osteoarthritis) - Past Surgical History Past Surgical History: Yes: Cataract Removal (right side), Cholecystectomy (open ), Joint Replacement (left knee Makoplasty) Additional Surgical History: left shoulder rotator cuff repair - Alcohol/Substance Use Hx Alcohol Use: No - Smoking History Smoking history: Former smoker Have you smoked in the past 12 months: No Aproximately how many cigarettes per day: 0 If you are a former smoker, when did you quit?: OVER 40 YRS AGO - Social History Usual Living Arrangement: With Spouse ADL: Independent Occupation: retired home health aid Place of : [facility] History of Recent Travel: No Home Medications - Allergies Allergies/Adverse Reactions: Allergies Allergy/AdvReac Type Severity Reaction Status Date / Time PRINCESS Inhibitors Allergy Severe TONGUE Verified 11/09/18 18:48 SWELLING, RASH - Home Medications Home Medications: Ambulatory Orders Albuterol Sulfate [Proair Hfa] 8.5 gm IH QID PRN 04/02/18 Budesonide/Formeterol Fumarate [SYMBICORT 160/4.5mcg -] 2 inh PO BID 04/02/18 Ergocalciferol [Vitamin D2] 50,000 unit PO Q7D@1000 04/02/18 Fluticasone Prop 0.05% Nasal [Flonase -] 1 spray NS DAILY 04/02/18 Irbesartan [Avapro] 300 mg PO DAILY 04/02/18 Omeprazole 40 mg PO DAILY 04/02/18 Potassium Chloride 20 meq PO DAILY 04/02/18 Pramipexole Dihydrochloride [Mirapex -] 1.5 mg PO DAILY 04/02/18 Zolpidem Tartrate [Ambien] 5 mg PO DAILY 04/02/18 Amlodipine Besylate [Norvasc -] 10 mg PO DAILY 30 Days #30 tablet 04/10/18 Simethicone [Mylicon -] 80 mg PO QID tab.chew 04/10/18 levoFLOXacin [Levaquin -] 500 mg PO DAILY #7 tablet 04/10/18 metroNIDAZOLE [Flagyl -] 250 mg PO TID 7 Days #21 tablet 04/10/18 traMADol HCL [Ultram -] 50 mg PO TID PRN #30 cap 04/10/18 Family Disease History - Family Disease History Family Disease History: Other: Father ( 74), Mother ( 70) Other Family History: no cancer Review of Systems - Review of Systems Constitutional: reports: No Symptoms Eyes: reports: No Symptoms HENT: reports: No Symptoms Neck: reports: No Symptoms Cardiovascular: reports: No Symptoms Respiratory: reports: No Symptoms Gastrointestinal: reports: Bloating, Constipation, Rectal Bleeding Musculoskeletal: reports: Back Pain, Joint Pain, Other (torn right rotator cuff needs right knee replacement) Physical Exam-GI Vital Signs: Vital Signs Temperature 97.4 F L 11/09/18 18:40 Pulse Rate 103 H 11/09/18 18:40 Respiratory Rate 18 11/09/18 18:40 Blood Pressure 128/57 L 11/09/18 18:40 O2 Sat by Pulse Oximetry (%) 98 11/09/18 18:40 CBC,CMP WBC 10.7 K/mm3 (4.0-10.0) H 11/09/18 20:00 RBC 4.27 M/mm3 (3.60-5.2) 11/09/18 20:00 Hgb 12.1 GM/dL (10.7-15.3) 11/09/18 20:00 Hct 35.4 % (32.4-45.2) D 11/09/18 20:00 MCV 83.0 fl (80-96) 11/09/18 20:00 MCH 28.4 pg (25.7-33.7) 11/09/18 20:00 MCHC 34.2 g/dl (32.0-36.0) 11/09/18 20:00 RDW 16.7 % (11.6-15.6) H 11/09/18 20:00 Plt Count 271 K/MM3 (134-434) 11/09/18 20:00 MPV 8.4 fl (7.5-11.1) 11/09/18 20:00 Absolute Neuts (auto) 7.6 K/mm3 (1.5-8.0) 11/09/18 20:00 Neutrophils % 70.9 % (42.8-82.8) 11/09/18 20:00 Lymphocytes % 19.3 % (8-40) D 11/09/18 20:00 Monocytes % 6.5 % (3.8-10.2) 11/09/18 20:00 Eosinophils % 2.3 % (0-4.5) 11/09/18 20:00 Basophils % 1.0 % (0-2.0) 11/09/18 20:00 Nucleated RBC % 0 % (0-0) 11/09/18 20:00 Sodium 138 mmol/L (136-145) 11/09/18 20:00 Potassium 4.6 mmol/L (3.5-5.1) 11/09/18 20:00 Chloride 104 mmol/L (98-107) 11/09/18 20:00 Carbon Dioxide 25 mmol/L (21-32) 11/09/18 20:00 Anion Gap 9 MMOL/L (8-16) 11/09/18 20:00 BUN 42 mg/dL (7-18) H 11/09/18 20:00 Creatinine 1.9 mg/dL (0.55-1.3) H 11/09/18 20:00 Creat Clearance w eGFR 25.77 (>60) 11/09/18 20:00 Random Glucose 99 mg/dL (74-106) 11/09/18 20:00 Calcium 8.3 mg/dL (8.5-10.1) L 11/09/18 20:00 Total Bilirubin 0.3 mg/dL (0.2-1) 03/21/19 20:00 AST 17 U/L (15-37) 11/09/18 20:00 ALT 16 U/L (13-61) 11/09/18 20:00 Alkaline Phosphatase 88 U/L (45-117) 11/09/18 20:00 Creatine Kinase 34 U/L (26-192) 11/09/18 20:00 Troponin I < 0.02 ng/ml (0.00-0.05) 11/09/18 20:00 Total Protein 7.8 g/dl (6.4-8.2) 11/09/18 20:00 Albumin 3.6 g/dl (3.4-5.0) 11/09/18 20:00 Current Medications Generic Name Dose Route Start Last Admin Trade Name Freq PRN Reason Stop Dose Admin Sodium Chloride 1,000 mls @ 1,000 mls/hr 11/09/18 21:22 Normal Saline - IV 11/09/18 22:21 ASDIR STA Constitutional: Yes: Anxious Eyes: Yes: Conjunctiva Clear HENT: Yes: Atraumatic Neck: Yes: Trachea Midline Cardiovascular: Yes: Regular Rate and Rhythm Respiratory: Yes: CTA Bilaterally Gastrointestinal Inspection: Yes: Scars (oblique RUQ incision) ...Auscultate: Yes: Normoactive Bowel Sounds ...Palpate: Yes: Soft, Other (nontender) ...Percussion: Yes: Tympanitic ...Rectal Exam: Yes: Guaiac Positive (no masses, dried blood) Labs: CBC, BMP 11/09/18 20:00 11/09/18 20:00 INR, PTT INR 1.09 (0.83-1.09) 11/09/18 20:00 Laboratory Tests 10/05/11 09/11/13 07/22/15 14:50 18:07 05:00 Hgb 11.6 12.4 12.3 04/19/16 05/12/17 04/07/18 07:35 09:00 07:30 Hgb 11.4 10.5 L 9.7 L 04/08/18 04/10/18 11/09/18 07:45 06:00 20:00 Hgb 10.3 L 9.9 L 12.1 Problem List - Problems (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 - OTHER FEMALE GENITAL TRACT FISTULAE (2) Left bundle branch block (LBBB) Code(s): I44.7 - LEFT BUNDLE-BRANCH BLOCK, UNSPECIFIED (3) Arthritis Code(s): M19.90 - UNSPECIFIED OSTEOARTHRITIS, UNSPECIFIED SITE (4) BRBPR (bright red blood per rectum) Code(s): K62.5 - HEMORRHAGE OF ANUS AND RECTUM (5) Constipation Code(s): K59.00 - CONSTIPATION, UNSPECIFIED Qualifiers: Constipation type: unspecified constipation type Qualified Code(s): K59.00 - Constipation, unspecified (6) Diverticulitis Code(s): K57.92 - DVTRCLI OF INTEST, PART UNSP, W/O PERF OR ABSCESS W/O BLEED (7) HTN (hypertension) Code(s): I10 - ESSENTIAL (PRIMARY) HYPERTENSION Qualifiers: Hypertension type: essential hypertension Qualified Code(s): I10 - Essential (primary) hypertension Assessment/Plan IMpression; Suspect diverticular bleed but given it's lengthy history, relatively normal Hb and constipation this may prove to be a hemorrhoidal or stercoral ulcer bleed. She could alternatively be bleeding from AVMs, ischemic colitis or a neoplasm. A UGI bleed seems unlikely Recent diverticulitis culminating in possible colouterine fistula. Mena denies uterine passage of air or feces Plan: Serial CBCs Transfuse as necessary CTA if/when renal function permits Surgical consultation is advised I have told Mena and her that she needs a colonoscopy. She'll think about it
--- NOTE | 2018-11-09 22:56 | PN ---
Teaching Attending Note Name of Resident: Huseyin Edwards entrered in error
--- NOTE | 2018-11-09 23:24 | HP ---
Admitting History and Physical - Primary Care Physician PCP: Valente Connor - Admission Chief Complaint: Rectal Bleeding, Dizziness and Lightheadedness History of Present Illness: This is a 73 y/o woman with a PMHx ofHTN, Asthma, Diverticulitis, Constipation. Who presents to the ED with dizziness, lightheadedness x 1 wek ago, BRBPR since 03/2018 worse last night. Patient states since DC in 03/2018 she has had intermittent blood with bowel movements and did not follow up with GI and has never had a colonoscopy. Denies AC and not currently on ASA. Patient states she noted increased dizziness and lightheadedness especially with ambulation since 11/03/2018 but today noted 2 episodes of excessive BRBPR filling the toilet and leaking from the anus with well formed stools and no pain with bowel movements. Patient denies fever, chills, cough, SOB, CP, palpitations, N/V/D, melena, hematuria, dysuria. Patient saw her PMD yesterday, blood was drawn but did not receive results History Source: Patient Limitations to Obtaining History: No Limitations - Past Medical History Cardiovascular: Yes: HTN, Other (new LBBB) Pulmonary: Yes: Asthma Gastrointestinal: Yes: Constipation, Diverticulitis (04/08 with possible colouterine fistula) Hepatobiliary: Yes: Cholelithiasis (s/p GB surgery) Rheumatology: Yes: Other (osteoarthritis) - Past Surgical History Past Surgical History: Yes: Cataract Removal (right side), Cholecystectomy (open ), Joint Replacement (left knee Makoplasty) - Smoking History Smoking history: Former smoker Have you smoked in the past 12 months: No Aproximately how many cigarettes per day: 0 If you are a former smoker, when did you quit?: OVER 40 YRS AGO - Alcohol/Substance Use Hx Alcohol Use: No History of Substance Use: reports: None - Social History Usual Living Arrangement: Yes: With Spouse ADL: Independent Occupation: retired home health aid History of Recent Travel: No Home Medications - Allergies Allergies/Adverse Reactions: Allergies Allergy/AdvReac Type Severity Reaction Status Date / Time PRINCESS Inhibitors Allergy Severe TONGUE Verified 11/09/18 18:48 SWELLING, RASH - Home Medications Home Medications: Ambulatory Orders Alprazolam 0.25 mg PO TID 11/09/18 Amoxicillin - [Amoxicillin 500mg Capsule -] 500 mg PO Q8H 11/09/18 Budesonide/Formeterol Fumarate [SYMBICORT 160/4.5mcg -] 1 inh PO BID 11/09/18 Fluticasone Prop 0.05% Nasal [Flonase -] 60 spray NS DAILY 11/09/18 Olmesartan Medoxomil [Benicar (Nf)] 40 mg PO DAILY 11/09/18 Oxymetazoline HCl [Nasal [place]] 30 ml NS DAILY 11/09/18 Potassium Chloride [K-Tab ER] 40 meq PO DAILY 11/09/18 Triamterene/Hydrochlorothiazid [Triamterene-Hctz 37.5-25 mg Cp] 1 each PO DAILY 11/09/18 Family Disease History - Family Disease History Family Disease History: Other: Father ( 74), Mother ( 70) Other Family History: no cancer Review of Systems - Review of Systems Constitutional: reports: No Symptoms Eyes: reports: No Symptoms HENT: reports: No Symptoms Neck: reports: No Symptoms Cardiovascular: reports: No Symptoms Respiratory: reports: No Symptoms Gastrointestinal: reports: Constipation, Rectal Bleeding Genitourinary: reports: No Symptoms Breasts: reports: No Symptoms Reported Musculoskeletal: reports: No Symptoms Integumentary: reports: No Symptoms Neurological: reports: Dizziness Endocrine: reports: No Symptoms Hematology/Lymphatic: reports: No Symptoms Psychiatric: reports: No Symptoms Pain Intensity: 0 Physical Examination Vital Signs: Vital Signs Temperature 97.4 F L 11/09/18 18:40 Pulse Rate 103 H 11/09/18 18:40 Respiratory Rate 18 11/09/18 18:40 Blood Pressure 128/57 L 11/09/18 18:40 O2 Sat by Pulse Oximetry (%) 98 11/09/18 18:40 Constitutional: Yes: Well Nourished, No Distress, Calm, Obese Eyes: Yes: WNL, Conjunctiva Clear, EOM Intact, PERRL HENT: Yes: WNL, Atraumatic, Normocephalic Neck: Yes: WNL, Supple, Trachea Midline Cardiovascular: Yes: WNL, Regular Rate and Rhythm, S1, S2 Respiratory: Yes: WNL, Regular, CTA Bilaterally Gastrointestinal: Yes: Soft, Abdomen, Obese, Hypoactive Bowel Sounds ...Rectal Exam: Yes: Guaiac Positive, Other (bright red blood in depends) Renal/: Yes: WNL Breast(s): Yes: WNL Musculoskeletal: Yes: WNL Extremities: Yes: WNL Edema: Yes Edema: LLE: Trace (ankles), RLE: Trace (ankles) Peripheral Pulses WNL: Yes Integumentary: Yes: WNL Neurological: Yes: WNL, Alert, Oriented, Cran Nerves II-XII Intact ...Motor Strength: WNL Psychiatric: Yes: WNL, Alert, Oriented Labs: CBC, BMP 11/09/18 20:00 11/09/18 20:00 Laboratory Results - last 24 hr 11/09/18 11/09/18 11/09/18 20:00 20:00 20:00 WBC 10.7 H RBC 4.27 Hgb 12.1 Hct 35.4 D MCV 83.0 MCH 28.4 MCHC 34.2 RDW 16.7 H Plt Count 271 MPV 8.4 Absolute Neuts (auto) 7.6 Neutrophils % 70.9 Lymphocytes % 19.3 D Monocytes % 6.5 Eosinophils % 2.3 Basophils % 1.0 Nucleated RBC % 0 PT with INR 12.90 INR 1.09 PTT (Actin FS) 28.5 Sodium 138 Potassium 4.6 Chloride 104 Carbon Dioxide 25 Anion Gap 9 BUN 42 H Creatinine 1.9 H Creat Clearance w eGFR 25.77 Random Glucose 99 Calcium 8.3 L Total Bilirubin 0.3 AST 17 ALT 16 Alkaline Phosphatase 88 Creatine Kinase 34 Troponin I < 0.02 Total Protein 7.8 Albumin 3.6 Stool Occult Blood Blood Type Antibody Screen 11/09/18 11/09/18 11/09/18 20:00 20:19 20:19 WBC RBC Hgb Hct MCV MCH MCHC RDW Plt Count MPV Absolute Neuts (auto) Neutrophils % Lymphocytes % Monocytes % Eosinophils % Basophils % Nucleated RBC % PT with INR INR PTT (Actin FS) Sodium Potassium Chloride Carbon Dioxide Anion Gap BUN Creatinine Creat Clearance w eGFR Random Glucose Calcium Total Bilirubin AST ALT Alkaline Phosphatase Creatine Kinase Troponin I Total Protein Albumin Stool Occult Blood Positive Blood Type O NEGATIVE O NEGATIVE Antibody Screen Negative Negative 11/10/18 11/10/18 11/10/18 00:58 00:58 01:50 WBC 10.0 RBC 3.96 Hgb 11.2 Hct 33.2 MCV 83.9 MCH 28.4 MCHC 33.8 RDW 16.7 H Plt Count 251 MPV 8.6 Absolute Neuts (auto) 6.5 Neutrophils % 65.4 Lymphocytes % 23.8 D Monocytes % 5.9 Eosinophils % 3.7 Basophils % 1.2 Nucleated RBC % 0 PT with INR INR PTT (Actin FS) Sodium 137 Potassium 4.7 Chloride 107 Carbon Dioxide 23 Anion Gap 7 L BUN 49 H Creatinine 1.6 H Creat Clearance w eGFR 31.42 Random Glucose 104 Calcium 8.6 Total Bilirubin 0.2 AST 18 ALT 19 Alkaline Phosphatase 85 Creatine Kinase Troponin I < 0.02 Total Protein 7.7 Albumin 3.6 Stool Occult Blood Blood Type Antibody Screen Intake & Output 11/07/18 11/08/18 11/09/18 11/10/18 23:59 23:59 23:59 23:59 Weight 93.44 kg Imaging - Results Chest X-ray: Report Reviewed, Image Reviewed EKG: Pending Problem List - Problems (1) BRBPR (bright red blood per rectum) Assessment/Plan: Likely Diverticular vs Hemorrhoid vs Malignancy +Stool Occult H/H stable at present GI following NPO Gentle IVF Monitor CBC Will transfuse if Hgb < 7.0 Monitor vitals Bedrest Fall Precautions Code(s): K62.5 - HEMORRHAGE OF ANUS AND RECTUM (2) Colouterine fistula Assessment/Plan: Appreciate surgical consult Will continue to monitor and treat with interventions accordingly Code(s): N82.8 - OTHER FEMALE GENITAL TRACT FISTULAE (3) Left bundle branch block (LBBB) Assessment/Plan: EKG- reviewed Cardiology following Code(s): I44.7 - LEFT BUNDLE-BRANCH BLOCK, UNSPECIFIED (4) HTN (hypertension) Assessment/Plan: stable Monitor BP Continue home meds Code(s): I10 - ESSENTIAL (PRIMARY) HYPERTENSION Qualifiers: Hypertension type: essential hypertension Qualified Code(s): I10 - Essential (primary) hypertension (5) Constipation Assessment/Plan: Stool softeners Code(s): K59.00 - CONSTIPATION, UNSPECIFIED Qualifiers: Constipation type: unspecified constipation type Qualified Code(s): K59.00 - Constipation, unspecified (6) Obesity Assessment/Plan: Patient counseled on weight reduction by clean eating and exercise Code(s): E66.9 - OBESITY, UNSPECIFIED Qualifiers: Obesity type: unspecified obesity type Assessment/Plan This is a 73 y/o woman placed in Observation for GI Bleed for further evaluation of their emergent condition. Plan: See Problem List FEN D51/2NS@42ml Replete lytes prn NPO DVT ppx OOB SCDs Hold AC secondary to GIB Dispo: Observation Visit type - Emergency Visit Emergency Visit: Yes ED Registration Date: 11/09/18 Care time: The patient presented to the Emergency Department on the above date and was hospitalized for further evaluation of their emergent condition. - New Patient This patient is new to me today: Yes Date on this admission: 11/09/18 - Critical Care Critical Care patient: No
[2018-11-09] MEDS ORDERED: DEXTROSE 5%-0.45% SALINE 1,000 ML IV SCH (23:45)
[2018-11-10 02:28] LABS: BASO % 1.2 % (0-2.0); EOS % 3.7 % (0-4.5); HEMATOCRIT 33.2 % (32.4-45.2); HEMOGLOBIN 11.2 GM/dL (10.7-15.3); LYMPH % 23.8 % (8-40); MCH 28.4 pg (25.7-33.7); MCHC 33.8 g/dl (32.0-36.0); MEAN CELL VOLUME 83.9 fl (80-96); MEAN PLT VOLUME 8.6 fl (7.5-11.1); MONO % 5.9 % (3.8-10.2); NEUT % 65.4 % (42.8-82.8); PLATELET COUNT 251 K/MM3 (134-434); RBC 3.96 M/mm3 (3.60-5.2); RDW 16.7 % (11.6-15.6)
[2018-11-10 02:37] LABS: ALBUMIN 3.6 g/dl (3.4-5.0); ALK PHOS 85 U/L (45-117); ANION GAP 7 MMOL/L (8-16); BILIRUBIN,TOTAL 0.2 mg/dL (0.2-1); BLOOD UREA NITROGEN 49 mg/dL (7-18); CALCIUM 8.6 mg/dL (8.5-10.1); CHLORIDE 107 mmol/L (98-107); CO2 23 mmol/L (21-32); CREATININE 1.6 mg/dL (0.55-1.3); GLUCOSE,RANDOM 104 mg/dL (74-106); POTASSIUM 4.7 mmol/L (3.5-5.1); SGOT/AST 18 U/L (15-37); SGPT/ALT 19 U/L (13-61); SODIUM 137 mmol/L (136-145); TOT PROT 7.7 g/dl (6.4-8.2)
[2018-11-10] MEDS ORDERED: SODIUM CHLORIDE NASAL SPRAY 44 ML BOTTLE NS PRN (08:00)
[2018-11-10] MEDS ORDERED: VALSARTAN 80 MG TABLET (UD) ONE (10:05)
--- NOTE | 2018-11-10 11:03 | EKG ---
Test Reason : Blood Pressure : / mmHG Vent. Rate : 094 BPM Atrial Rate : 094 BPM P-R Int : 196 ms QRS Dur : 126 ms QT Int : 382 ms P-R-T Axes : 037 -38 109 degrees QTc Int : 477 ms NORMAL SINUS RHYTHM LEFT AXIS DEVIATION LEFT BUNDLE BRANCH BLOCK ABNORMAL ECG WHEN COMPARED WITH ECG OF 07-APR-2018 02:11, LEFT BUNDLE BRANCH BLOCK IS NOW PRESENT Confirmed by ISAIAH ORITZ MD ([id number]) on 11/10/2018 11:02:51 AM Referred By: Confirmed By:ISAIAH ORTIZ MD
[2018-11-10] MEDS: FLUTICASONE PROP 0.05% 16 GM NASAL SPRAY NS SCH (11:13)
[2018-11-10] MEDS: VALSARTAN 160 MG TABLET (UD) PO SCH (11:13)
[2018-11-10] MEDS: BUDESONIDE/FORMETEROL FUMARATE 160/4.5 mcg INHALER IH SCH ×2 (11:15→22:44)
--- NOTE | 2018-11-10 11:36 | CON.CARD ---
Cardiology Consult (text) - Consultation Consultation Note: cc: rectal bleed hpi: 73 f hx morbid obesity, asthma, htn, venous insuff/le edema here with rectal bleed. Had episode of rectal bleed so came to ER. No cp sob palps dizzy loc pnd orthopnea le edema. Cardio consulted for abnl ecg. pmh: per hpi psh: appendectomy social: Former smoker, No alcohol, No illicits. fam: no premature cad or scd ros: per hpi;no fever, nvd, rash, muscle pain, CRUZ, vision changes; all others normal meds: Home Medications Medication Instructions Recorded Alprazolam 0.25 mg PO TID 11/09/18 Amoxicillin - [Amoxicillin 500mg 500 mg PO Q8H 11/09/18 Capsule -] Budesonide/Formeterol Fumarate 1 inh PO BID 11/09/18 [SYMBICORT 160/4.5mcg -] Fluticasone Prop 0.05% Nasal 60 spray NS DAILY 11/09/18 [Flonase -] Olmesartan Medoxomil [Benicar (Nf)] 40 mg PO DAILY 11/09/18 Oxymetazoline HCl [Nasal [place]] 30 ml NS DAILY 11/09/18 Potassium Chloride [K-Tab ER] 40 meq PO DAILY 11/09/18 Triamterene/Hydrochlorothiazid 1 each PO DAILY 11/09/18 [Triamterene-Hctz 37.5-25 mg Cp] pe: Vital Signs Period Temp Pulse Resp BP Sys/Mohamud Pulse Ox Last 24 Hr 97.4 F-98.2 F 70-103 17-18 128-144/57-76 98-99 nad, no jvd rrr s1s2 systolic murmur at upper sternal border cta bl nl eff aaox3 trace le edema bl, no c/c abd nt nd pos bs pos dp pt no jaundice diaphoresis Laboratory Last Values WBC 10.0 K/mm3 (4.0-10.0) 11/10/18 01:50 RBC 3.96 M/mm3 (3.60-5.2) 11/10/18 01:50 Hgb 11.2 GM/dL (10.7-15.3) 11/10/18 01:50 Hct 33.2 % (32.4-45.2) 11/10/18 01:50 MCV 83.9 fl (80-96) 11/10/18 01:50 MCH 28.4 pg (25.7-33.7) 11/10/18 01:50 MCHC 33.8 g/dl (32.0-36.0) 11/10/18 01:50 RDW 16.7 % (11.6-15.6) H 11/10/18 01:50 Plt Count 251 K/MM3 (134-434) 11/10/18 01:50 MPV 8.6 fl (7.5-11.1) 11/10/18 01:50 Absolute Neuts (auto) 6.5 K/mm3 (1.5-8.0) 11/10/18 01:50 Neutrophils % 65.4 % (42.8-82.8) 11/10/18 01:50 Lymphocytes % 23.8 % (8-40) D 11/10/18 01:50 Monocytes % 5.9 % (3.8-10.2) 11/10/18 01:50 Eosinophils % 3.7 % (0-4.5) 11/10/18 01:50 Basophils % 1.2 % (0-2.0) 11/10/18 01:50 Nucleated RBC % 0 % (0-0) 11/10/18 01:50 PT with INR 12.90 SEC (9.7-13.0) 11/09/18 20:00 INR 1.09 (0.83-1.09) 11/09/18 20:00 PTT (Actin FS) 28.5 SECONDS (25.2-36.5) 11/09/18 20:00 Sodium 137 mmol/L (136-145) 11/10/18 00:58 Potassium 4.7 mmol/L (3.5-5.1) 11/10/18 00:58 Chloride 107 mmol/L (98-107) 11/10/18 00:58 Carbon Dioxide 23 mmol/L (21-32) 11/10/18 00:58 Anion Gap 7 MMOL/L (8-16) L 11/10/18 00:58 BUN 49 mg/dL (7-18) H 11/10/18 00:58 Creatinine 1.6 mg/dL (0.55-1.3) H 11/10/18 00:58 Creat Clearance w eGFR 31.42 (>60) 11/10/18 00:58 Random Glucose 104 mg/dL (74-106) 11/10/18 00:58 Calcium 8.6 mg/dL (8.5-10.1) 11/10/18 00:58 Total Bilirubin 0.2 mg/dL (0.2-1) 11/10/18 00:58 AST 18 U/L (15-37) 11/10/18 00:58 ALT 19 U/L (13-61) 11/10/18 00:58 Alkaline Phosphatase 85 U/L (45-117) 11/10/18 00:58 Creatine Kinase 34 U/L (26-192) 11/09/18 20:00 Troponin I < 0.02 ng/ml (0.00-0.05) 11/10/18 00:58 Total Protein 7.7 g/dl (6.4-8.2) 11/10/18 00:58 Albumin 3.6 g/dl (3.4-5.0) 11/10/18 00:58 Stool Occult Blood Positive (NEGATIVE) 11/09/18 20:19 Blood Type O NEGATIVE 11/09/18 20:19 Antibody Screen Negative 11/09/18 20:19 ecg: sr, lbbb echo 07/2015: nl lv/rv, nl valves. E to A reversal. echo 03/2016: nl lv/rv, mild-mod tr, mild pr, rvsp 30-40 cxr: clear lungs a/p: 73 f hx morbid obesity, asthma, htn, venous insuff/le edema here with rectal bleed. abnl ecg: -new lbbb seen on ecg here -no cardiac symptoms, no signs acs, trops neg x2 -does not appear to be any acute cardiac issues presently, outpt cardio f/u -dc tele htn: -cont home meds venous insuff/le edema: -stable, minimal le edema nanda: -improving with ivfs gib: -GI following -no cardiac contraindications (intermediate risk) to colonoscopy
[2018-11-10 12:03] LABS: BASO % 0.8 % (0-2.0); EOS % 5.1 % (0-4.5); HEMATOCRIT 33.6 % (32.4-45.2); HEMOGLOBIN 11.1 GM/dL (10.7-15.3); LYMPH % 27.6 % (8-40); MCH 27.7 pg (25.7-33.7); MCHC 33.1 g/dl (32.0-36.0); MEAN CELL VOLUME 83.6 fl (80-96); MEAN PLT VOLUME 8.2 fl (7.5-11.1); MONO % 7.8 % (3.8-10.2); NEUT % 58.7 % (42.8-82.8); PLATELET COUNT 250 K/MM3 (134-434); RBC 4.02 M/mm3 (3.60-5.2); RDW 16.7 % (11.6-15.6); WHITE BLOOD COUNT 8.2 K/mm3 (4.0-10.0)
[2018-11-10 12:26] LABS: ANION GAP 5 MMOL/L (8-16); BLOOD UREA NITROGEN 39 mg/dL (7-18); CALCIUM 8.5 mg/dL (8.5-10.1); CHLORIDE 106 mmol/L (98-107); CO2 25 mmol/L (21-32); CREATININE 1.3 mg/dL (0.55-1.3); GLUCOSE,RANDOM 110 mg/dL (74-106); POTASSIUM 4.4 mmol/L (3.5-5.1); SODIUM 136 mmol/L (136-145)
--- NOTE | 2018-11-10 12:31 | PN ---
Progress Note (short form) - Note Progress Note: pt seen/ examined in er chart reviewed awake/ comfortable Vital Signs Temp 98.1 F 11/10/18 06:42 Pulse 70 11/10/18 06:42 Resp 18 11/10/18 06:25 BP 144/62 11/10/18 06:42 Pulse Ox 99 11/10/18 06:42 Intake & Output 11/09/18 11/10/18 11/10/18 23:59 11:59 23:59 Weight 206 lb Other: Height 5 ft 3 in Body Mass Index (BMI) 36.5 Active Medications Budesonide/Formoterol Fumarate (Symbicort 160/4.5mcg -) 1 puff IH BID [facility] Last Admin: 11/10/18 11:15 Dose: 1 puff Fluticasone Propionate (Flonase -) 2 spray NS DAILY [facility] Last Admin: 11/10/18 11:13 Dose: 2 spray Dextrose/Sodium Chloride (D5-1/2ns -) 1,000 mls @ 42 mls/hr IV ASDIR [facility] Last Admin: 11/10/18 00:33 Dose: 42 mls/hr Sodium Chloride ([place] Nasal [place] -) 2 spray NS Q8H PRN PRN Reason: NASAL CONGESTION Valsartan (Diovan -) 320 mg PO DAILY [facility] Last Admin: 11/10/18 11:13 Dose: 320 mg CBC, BMP 11/10/18 11:50 11/10/18 11:50 Physical Exam Awake/ comfortable lungs- clear cvs-- s1, s2 rrr abd - soft/ obese. ext- trace edema neuro- alert/ awake A/p GI Bleed-- h/h stable cad Obesity Discussed with pt/ Grand daughter who at bedside Discussed with Dr. Leo also-- will follow. Pt / grand daughter agrees for Colonoscopy start on diet for now d/c fluids surgery to follow will follow Problem List - Problems (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 - OTHER FEMALE GENITAL TRACT FISTULAE (2) BRBPR (bright red blood per rectum) Code(s): K62.5 - HEMORRHAGE OF ANUS AND RECTUM (3) Obesity Code(s): E66.9 - OBESITY, UNSPECIFIED Qualifiers: Obesity type: unspecified obesity type
--- NOTE | 2018-11-10 14:42 | PN.GI ---
GI Progress Note Subjective: GI NOte: No further bleeding overnight. Hb stable. Cardiologically cleared by Dr Sow. Communicated with Dr Mcintosh. I have proposed that Mena undergo a colonoscopy. I have informed her of the potential for such complications as perforation and hemorrhage. She has signed an informed consent. I have scheduled colonoscopy for 11/13. - Objective Vital Signs: Vital Signs Temperature 98.1 F 11/10/18 06:42 Pulse Rate 79 11/10/18 14:33 Respiratory Rate 24 H 11/10/18 14:33 Blood Pressure 155/62 11/10/18 14:33 O2 Sat by Pulse Oximetry (%) 100 11/10/18 14:33 Laboratory Tests 11/09/18 11/10/18 11/10/18 20:00 01:50 11:50 Hgb 12.1 11.2 11.1 BUN Creatinine 11/10/18 11:50 Hgb BUN 39 H Creatinine 1.3 Constitutional: Calm ...Auscultate: Yes: Normoactive Bowel Sounds ...Palpate: Yes: Soft, Other (nontender) Labs: CBC, BMP 11/10/18 11:50 11/10/18 11:50 INR, PTT INR 1.09 (0.83-1.09) 11/09/18 20:00 Assessment/Plan Impression; Suspect diverticular bleed Hb and constipation. She could alternatively be bleeding from AVMs, ischemic colitis or a neoplasm or perhaps have hemorrhoidal or a stercoral ulcer bleed. A UGI bleed seems very unlikely Recent diverticulitis culminating in possible colouterine fistula. I informed Mena of this possibility. She again denies uterine passage of air or feces Plan: Advance diet Clear liquids and Golytely prep on 11/12 Colonoscopy on 11/13 Problem List - Problems (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 - OTHER FEMALE GENITAL TRACT FISTULAE (2) Left bundle branch block (LBBB) Code(s): I44.7 - LEFT BUNDLE-BRANCH BLOCK, UNSPECIFIED (3) Arthritis Code(s): M19.90 - UNSPECIFIED OSTEOARTHRITIS, UNSPECIFIED SITE (4) BRBPR (bright red blood per rectum) Code(s): K62.5 - HEMORRHAGE OF ANUS AND RECTUM (5) Constipation Code(s): K59.00 - CONSTIPATION, UNSPECIFIED Qualifiers: Constipation type: unspecified constipation type Qualified Code(s): K59.00 - Constipation, unspecified (6) Diverticulitis Code(s): K57.92 - DVTRCLI OF INTEST, PART UNSP, W/O PERF OR ABSCESS W/O BLEED (7) HTN (hypertension) Code(s): I10 - ESSENTIAL (PRIMARY) HYPERTENSION Qualifiers: Hypertension type: essential hypertension Qualified Code(s): I10 - Essential (primary) hypertension
--- NOTE | 2018-11-10 20:15 | CONSULT ---
Consult Consult Specialty:: General Surgery Referred by:: Berry Jansen Reason for Consultation:: ?colouterine fistula - History of Present Illness Chief Complaint: BRBPR, weakness/lightheadedness History of Present Illness: 73yo F with HTN, asthma, diverticulosis, possibly diverticulitis vs rectosigmoid inflammation last March, s/p musculoskeletal surgeries, cholecystectomy, possible appendectomy, uterine/pelvic lift, admitted with rectal bleeding intermittently but severe episode yesterday associated with lightheadedness, weakness, formed stool at beginning but then just bloody output. No n/v, no abdominal pain, never had colonoscopy even after episode of possible diverticulitis vs rectosigmoid inflammation last year. Has lost 5-6 pounds recently without trying. Denies recent illness or urinary complaints. Pt has been seen by GI, and has colonoscopy planned for Tuesday. Overt bleeding has stopped, occult blood was positive. H/H stable. Last year, CT showed a little air in uterine cavity, questioned possibility of colouterine fistula. Surgery was asked to assess this admission. Patient seen and examined in bed with multiple family present (daughter, , grandchildren). Just had dinner. Admits to only taking blood pressure medicine (and others?) at home a few times a week at best, and not consistently either morning or night. Not on aspirin. Only took ibuprofen one pill once a few weeks ago. - History Source History Provided By: Patient, Family Member Limitations to Obtaining History: Poor Historian - Past Medical History Cardio/Vascular: Yes: HTN, Other (new LBBB) Pulmonary: Yes: Asthma Gastrointestinal: Yes: Constipation, Diverticulitis (04/08 with some air in uterus/?possible colouterine fistula), Diverticulosis, Other (morbid obesity) Hepatobiliary: Yes: Cholelithiasis (s/p GB surgery) Reproductive: Yes: Postmenopausal Musculoskeletal: Yes: Osteoarthritis - Past Surgical History Past Surgical History: Yes: Appendectomy (??? pt not sure, possible RLQ scar), Cataract Removal, Cholecystectomy, Joint Replacement (left knee). No: Colonoscopy Additional Surgical History: left shoulder rotator cuff repair, cardiac caths, pt reports uterine/pelvic lift procedure - Alcohol/Substance Use Hx Alcohol Use: No (not for many years) History of Substance Use: reports: None - Smoking History Smoking history: Former smoker (1/2 ppd) Have you smoked in the past 12 months: No If you are a former smoker, when did you quit?: about 27 yrs ago - Social History Usual Living Arrangement: With Spouse ADL: Independent Occupation: retired home health aide History of Recent Travel: No Home Medications - Allergies Allergies/Adverse Reactions: Allergies Allergy/AdvReac Type Severity Reaction Status Date / Time PRINCESS Inhibitors Allergy Severe TONGUE Verified 11/09/18 18:48 SWELLING, RASH - Home Medications Home Medications: Ambulatory Orders Alprazolam 0.25 mg PO TID 11/09/18 Amoxicillin - [Amoxicillin 500mg Capsule -] 500 mg PO Q8H 11/09/18 Budesonide/Formeterol Fumarate [SYMBICORT 160/4.5mcg -] 1 inh PO BID 11/09/18 Fluticasone Prop 0.05% Nasal [Flonase -] 60 spray NS DAILY 11/09/18 Olmesartan Medoxomil [Benicar (Nf)] 40 mg PO DAILY 11/09/18 Oxymetazoline HCl [Nasal [place]] 30 ml NS DAILY 11/09/18 Potassium Chloride [K-Tab ER] 40 meq PO DAILY 11/09/18 Triamterene/Hydrochlorothiazid [Triamterene-Hctz 37.5-25 mg Cp] 1 each PO DAILY 11/09/18 Family Disease History - Family Disease History Family Disease History: Heart Disease: Father ( 74, had heart attack), Other : Father, Mother ( 70, ?liver problems) Other Family History: no cancer Review of Systems - Review of Systems Constitutional: reports: Loss of Appetite, Unintentional Wgt. Loss (~5 lbs), Weakness (mild, legs a little weak). denies: Chills, Fever Eyes: reports: Other (wears glasses). denies: Recent Change in Vision HENT: denies: Difficult Swallowing, Nasal Congestion, Throat Pain Neck: denies: Swollen Glands, Tenderness Cardiovascular: denies: Chest Pain, Palpitations Respiratory: denies: Cough Gastrointestinal: reports: Constipation. denies: Abdominal Pain, Diarrhea Genitourinary: denies: Burning, Dysuria Musculoskeletal: denies: Back Pain Integumentary: denies: Change in Color, Rash Neurological: reports: Unsteady Gait (uses walker or cane for ambulating). denies: Dizziness, Headache Physical Exam Vital Signs: Vital Signs Temperature 98.2 F 11/10/18 19:17 Pulse Rate 70 11/10/18 19:17 Respiratory Rate 20 11/10/18 19:22 Blood Pressure 144/73 11/10/18 19:17 O2 Sat by Pulse Oximetry (%) 100 11/10/18 19:22 Constitutional: Yes: No Distress, Calm Eyes: Yes: Conjunctiva Clear, EOM Intact, Other (glasses) HENT: Yes: Atraumatic, Normocephalic Neck: Yes: Supple, Trachea Midline Cardiovascular: Yes: Regular Rate and Rhythm, Murmur Respiratory: Yes: Regular, CTA Bilaterally Gastrointestinal: Yes: Normal Bowel Sounds, Soft, Abdomen, Obese, Other (healed LUQ scar, possible RLQ scar, some healed suprapubic scarring, across and down). No: Tenderness ...Rectal Exam: Yes: Deferred Extremities: No: Cool, Cyanosis Edema: LLE: 1+, RLE: 1+ Integumentary: No: Jaundice, Rash Neurological: Yes: Alert, Oriented Labs: CBC, BMP 11/10/18 11:50 11/10/18 11:50 Imaging - Results Cat Scan: Report Reviewed, Image Reviewed (from 04/08 -- pt had a small bit of air in endometrial cavity, diverticulosis, mild stranding around rectosigmoid possibly inflammatory in nature, no free air or fluid, no obstruction - read by radiology as ?? colouterine fistula, unless postprocedural or from instrumentation) Problem List - Problems (1) BRBPR (bright red blood per rectum) Assessment/Plan: admitted to medicine tolerated diet today, colonoscopy planned for Tuesday H/H stable Cr elevated but decreasing - may still be relatively dehydrated no active rectal bleeding Code(s): K62.5 - HEMORRHAGE OF ANUS AND RECTUM (2) Constipation Assessment/Plan: from pt's description, she is chronically constipated - not every day and frequently hard stools and/or hard to get out would not be surprised if rectosigmoid inflammation from last March were related to this somehow, or stercoral in nature as well as current bleeding episodes..? doubt colouterine fistula but pt does report having had uterine/pelvic lift procedure in past never had screening scope colonoscopy planned for Tuesday - will f/u after GI for results Code(s): K59.00 - CONSTIPATION, UNSPECIFIED Qualifiers: Constipation type: unspecified constipation type Qualified Code(s): K59.00 - Constipation, unspecified (3) HTN (hypertension) Assessment/Plan: holding diuretics for now Code(s): I10 - ESSENTIAL (PRIMARY) HYPERTENSION Qualifiers: Hypertension type: essential hypertension Qualified Code(s): I10 - Essential (primary) hypertension (4) Obesity Code(s): E66.9 - OBESITY, UNSPECIFIED Qualifiers: Obesity type: due to excess calories Obesity classification: adult class 2 (BMI 35 - 39.9) Body mass index: BMI 36.0-36.9 Qualified Code(s): E66.09 - Other obesity due to excess calories; Z68.36 - Body mass index (BMI) 36.0-36.9, adult
[2018-11-10] MEDS: POLYETHYLENE GLYCOL 3350 119 GM BTL PO SCH (22:45)
[2018-11-11] MEDS: POLYETHYLENE GLYCOL 3350 119 GM BTL PO SCH ×4 (05:30→21:02)
[2018-11-11 08:21] LABS: ALBUMIN 3.4 g/dl (3.4-5.0); ALK PHOS 78 U/L (45-117); ANION GAP 9 MMOL/L (8-16); BASO % 0.9 % (0-2.0); BILIRUBIN,TOTAL 0.4 mg/dL (0.2-1); BLOOD UREA NITROGEN 31 mg/dL (7-18); CALCIUM 8.7 mg/dL (8.5-10.1); CHLORIDE 107 mmol/L (98-107); CO2 23 mmol/L (21-32); CREATININE 1.3 mg/dL (0.55-1.3); EOS % 5.4 % (0-4.5); GLUCOSE,RANDOM 92 mg/dL (74-106); HEMATOCRIT 31.3 % (32.4-45.2); HEMOGLOBIN 10.6 GM/dL (10.7-15.3); MCH 28.3 pg (25.7-33.7); MCHC 34.1 g/dl (32.0-36.0); MEAN CELL VOLUME 83.2 fl (80-96); MEAN PLT VOLUME 8.5 fl (7.5-11.1); MONO % 6.5 % (3.8-10.2); NEUT % 60.2 % (42.8-82.8); PLATELET COUNT 231 K/MM3 (134-434); POTASSIUM 4.3 mmol/L (3.5-5.1); RBC 3.76 M/mm3 (3.60-5.2); RDW 17.2 % (11.6-15.6); SGOT/AST 14 U/L (15-37); SGPT/ALT 16 U/L (13-61); SODIUM 139 mmol/L (136-145); TOT PROT 7.4 g/dl (6.4-8.2); WHITE BLOOD COUNT 7.8 K/mm3 (4.0-10.0)
[2018-11-11] MEDS ORDERED: PT OWN MED DRAWER 7, Y5N ONE (09:52)
--- NOTE | 2018-11-11 10:13 | PN ---
Progress Note (short form) - Note Progress Note: s: no chest pain, palps, dizziness, lightheadedness Current Medications Bisacodyl (Dulcolax -) 20 mg PO ONCE ONE Stop: 11/12/18 18:01 Budesonide/Formoterol Fumarate (Symbicort 160/4.5mcg -) 1 puff IH BID [facility] Last Admin: 11/10/18 22:44 Dose: 1 puff Fluticasone Propionate (Flonase -) 2 spray NS DAILY [facility] Last Admin: 11/10/18 11:13 Dose: 2 spray Polyethylene Glycol (Miralax (For Daily Use) -) 17 gm PO TID [facility] Last Admin: 11/11/18 05:30 Dose: Not Given Polyethylene Glycol/Electrolytes (Golytely Solution -) 4,000 ml PO ONCE ONE Stop: 11/12/18 08:01 Sodium Chloride ([place] Nasal [place] -) 2 spray NS Q8H PRN PRN Reason: NASAL CONGESTION Valsartan (Diovan -) 320 mg PO DAILY [facility] Last Admin: 11/10/18 11:13 Dose: 320 mg pe: Vital Signs Period Temp Pulse Resp BP Sys/Mohamud Pulse Ox Last 24 Hr 98 F-98.2 F 70-85 20-24 144-155/56-75 98-100 nad, no jvd rrr s1s2 systolic murmur at upper sternal border cta bl nl eff aaox3 trace le edema bl, no c/c abd nt nd pos bs pos dp pt no jaundice diaphoresis ecg: sr, lbbb echo 07/2015: nl lv/rv, nl valves. E to A reversal. echo 03/2016: nl lv/rv, mild-mod tr, mild pr, rvsp 30-40 cxr: clear lungs a/p: 73 f hx morbid obesity, asthma, htn, venous insuff/le edema here with rectal bleed. abnl ecg: -new lbbb seen on ecg here -no cardiac symptoms, no signs acs, trops neg x2 -does not appear to be any acute cardiac issues presently, outpt cardio f/u htn: -cont home meds venous insuff/le edema: -stable, minimal le edema nanda: -improving with ivfs gib: -GI following -no cardiac contraindications (intermediate risk) to colonoscopy
[2018-11-11] MEDS: FLUTICASONE PROP 0.05% 16 GM NASAL SPRAY NS SCH (10:32)
[2018-11-11] MEDS: VALSARTAN 160 MG TABLET (UD) PO SCH (10:32)
[2018-11-11] MEDS: BUDESONIDE/FORMETEROL FUMARATE 160/4.5 mcg INHALER IH SCH ×2 (10:33→21:48)
--- NOTE | 2018-11-11 11:47 | PN ---
Progress Note (short form) - Note Progress Note: pt seen/ examined comfortable nurse reports periods of anxiety-- could not sleep well last night denies pain afebrile gi f/u noted -- for colonoscopy on Tuesday discussed with heavy media operator also today. Vital Signs Temp 98 F 11/11/18 06:35 Pulse 70 11/11/18 06:35 Resp 20 11/11/18 06:35 BP 147/56 L 11/11/18 06:35 Pulse Ox 98 11/11/18 01:18 Intake & Output 11/10/18 11/10/18 11/11/18 11:59 23:59 11:59 Intake Total 0 Balance 0 Weight 206 lb Intake: IVPB 0 Other: Voiding Method Toilet Toilet # Unmeasured Voids Void 1 3 Bowel Movement Yes # Bowel Movements 2 Height 5 ft 3 in Body Mass Index (BMI) 36.5 Weight Measurement Method Stated by Patient Active Medications Alprazolam (Xanax -) 0.25 mg PO BID PRN PRN Reason: ANXIETY Bisacodyl (Dulcolax -) 20 mg PO ONCE ONE Stop: 11/12/18 18:01 Budesonide/Formoterol Fumarate (Symbicort 160/4.5mcg -) 1 puff IH BID [facility] Last Admin: 11/11/18 10:33 Dose: 1 puff Fluticasone Propionate (Flonase -) 2 spray NS DAILY [facility] Last Admin: 11/11/18 10:32 Dose: 2 spray Polyethylene Glycol (Miralax (For Daily Use) -) 17 gm PO TID [facility] Last Admin: 11/11/18 05:30 Dose: Not Given Polyethylene Glycol/Electrolytes (Golytely Solution -) 4,000 ml PO ONCE ONE Stop: 11/12/18 08:01 Sodium Chloride ([place] Nasal [place] -) 2 spray NS Q8H PRN PRN Reason: NASAL CONGESTION Valsartan (Diovan -) 320 mg PO DAILY [facility] Last Admin: 11/11/18 10:32 Dose: 320 mg CBC, BMP 11/11/18 06:30 11/11/18 06:30 Physical Exam Awake/ comfortable lungs- clear cvs-- s1, s2 rrr abd - soft/ obese. ext- trace edema neuro- alert/ awake A/p GI Bleed-- h/h stable cad Obesity anxiety stable continue present care oob - chair. surgical consult also noted and appreciated. 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
--- NOTE | 2018-11-11 13:00 | PN.GI ---
GI Progress Note Subjective: GI NOte: Had a small amount of blood alongside stool today. Hb dwindling. Will check ferriting - Objective Vital Signs: Vital Signs Temperature 98 F 11/11/18 06:35 Pulse Rate 70 11/11/18 06:35 Respiratory Rate 20 11/11/18 06:35 Blood Pressure 147/56 L 11/11/18 06:35 O2 Sat by Pulse Oximetry (%) 98 11/11/18 01:18 Laboratory Tests 11/10/18 11/11/18 11:50 06:30 Hgb 11.1 10.6 L Constitutional: No Distress ...Auscultate: Yes: Normoactive Bowel Sounds ...Palpate: Yes: Soft, Other (nontender) Labs: CBC, BMP 11/11/18 06:30 11/11/18 06:30 INR, PTT INR 1.09 (0.83-1.09) 11/09/18 20:00 Assessment/Plan Impression; Resolved diverticular bleed Recent diverticulitis culminating in possible colouterine fistula. 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 (4) Left bundle branch block (LBBB) Code(s): I44.7 - LEFT BUNDLE-BRANCH BLOCK, UNSPECIFIED (5) Arthritis Code(s): M19.90 - UNSPECIFIED OSTEOARTHRITIS, UNSPECIFIED SITE (6) Constipation Code(s): K59.00 - CONSTIPATION, UNSPECIFIED Qualifiers: Constipation type: unspecified constipation type Qualified Code(s): K59.00 - Constipation, unspecified (7) Diverticulitis Code(s): K57.92 - DVTRCLI OF INTEST, PART UNSP, W/O PERF OR ABSCESS W/O BLEED (8) HTN (hypertension) Code(s): I10 - ESSENTIAL (PRIMARY) HYPERTENSION Qualifiers: Hypertension type: essential hypertension Qualified Code(s): I10 - Essential (primary) hypertension
[2018-11-11] MEDS: ALPRAZolam 0.25 MG TABLET PO PRN (21:47)
[2018-11-12] MEDS: POLYETHYLENE GLYCOL 3350 119 GM BTL PO SCH ×3 (05:08→21:54)
[2018-11-12] MEDS ORDERED: PEG 3350/NA SULF BICARB CL/KCL 4000 ML SOLN.RECON PO ONE (08:00)
[2018-11-12 08:38] LABS: BASO % 1.1 % (0-2.0); EOS % 6.5 % (0-4.5); HEMATOCRIT 31.5 % (32.4-45.2); HEMOGLOBIN 10.6 GM/dL (10.7-15.3); LYMPH % 28.2 % (8-40); MCH 28.1 pg (25.7-33.7); MCHC 33.5 g/dl (32.0-36.0); MEAN CELL VOLUME 83.7 fl (80-96); MEAN PLT VOLUME 8.4 fl (7.5-11.1); MONO % 7.6 % (3.8-10.2); NEUT % 56.6 % (42.8-82.8); PLATELET COUNT 243 K/MM3 (134-434); RBC 3.77 M/mm3 (3.60-5.2); RDW 16.7 % (11.6-15.6); RETICULOCYTES 1.17 % (0.5-1.5); WHITE BLOOD COUNT 8.8 K/mm3 (4.0-10.0)
[2018-11-12 08:40] LABS: ANION GAP 5 MMOL/L (8-16); BLOOD UREA NITROGEN 41 mg/dL (7-18); CALCIUM 8.5 mg/dL (8.5-10.1); CHLORIDE 105 mmol/L (98-107); CO2 24 mmol/L (21-32); CREATININE 1.5 mg/dL (0.55-1.3); GLUCOSE,RANDOM 97 mg/dL (74-106); POTASSIUM 4.5 mmol/L (3.5-5.1); SODIUM 135 mmol/L (136-145)
[2018-11-12] MEDS ORDERED: PT OWN MED DRAWER 7, Y5N ONE (09:33)
[2018-11-12] MEDS: ALPRAZolam 0.25 MG TABLET PO PRN (09:42)
[2018-11-12] MEDS: BUDESONIDE/FORMETEROL FUMARATE 160/4.5 mcg INHALER IH SCH ×2 (09:43→21:54)
[2018-11-12] MEDS: VALSARTAN 160 MG TABLET (UD) PO SCH (09:44)
--- NOTE | 2018-11-12 10:23 | PN ---
Progress Note (short form) - Note Progress Note: s: no chest pain, palps, dizziness, lightheadedness Current Medications Bisacodyl (Dulcolax -) 20 mg PO ONCE ONE Stop: 11/12/18 18:01 Budesonide/Formoterol Fumarate (Symbicort 160/4.5mcg -) 1 puff IH BID [facility] Last Admin: 11/10/18 22:44 Dose: 1 puff Fluticasone Propionate (Flonase -) 2 spray NS DAILY [facility] Last Admin: 11/10/18 11:13 Dose: 2 spray Polyethylene Glycol (Miralax (For Daily Use) -) 17 gm PO TID [facility] Last Admin: 11/11/18 05:30 Dose: Not Given Polyethylene Glycol/Electrolytes (Golytely Solution -) 4,000 ml PO ONCE ONE Stop: 11/12/18 08:01 Sodium Chloride ([place] Nasal [place] -) 2 spray NS Q8H PRN PRN Reason: NASAL CONGESTION Valsartan (Diovan -) 320 mg PO DAILY [facility] Last Admin: 11/10/18 11:13 Dose: 320 mg pe: Vital Signs Period Temp Pulse Resp BP Sys/Mohamud Pulse Ox Last 24 Hr 98 F-98.2 F 70-85 20-24 144-155/56-75 98-100 nad, no jvd rrr s1s2 systolic murmur at upper sternal border cta bl nl eff aaox3 trace le edema bl, no c/c abd nt nd pos bs pos dp pt no jaundice diaphoresis ecg: sr, lbbb echo 07/2015: nl lv/rv, nl valves. E to A reversal. echo 03/2016: nl lv/rv, mild-mod tr, mild pr, rvsp 30-40 cxr: clear lungs a/p: 73 f hx morbid obesity, asthma, htn, venous insuff/le edema here with rectal bleed. abnl ecg: -new lbbb seen on ecg here -no cardiac symptoms, no signs acs, trops neg x2 -does not appear to be any acute cardiac issues presently, outpt cardio f/u htn: -cont home meds venous insuff/le edema: -stable, minimal le edema nanda: -improving with ivfs gib: -GI following -no cardiac contraindications (intermediate risk) to colonoscopy
--- NOTE | 2018-11-12 12:55 | PN ---
Progress Note (short form) - Note Progress Note: sitting in chair comfortable feels well Vital Signs Temp 98 F 11/12/18 10:02 Pulse 81 11/12/18 10:02 Resp 23 H 11/12/18 10:02 BP 135/77 11/12/18 10:02 Pulse Ox 96 11/11/18 21:00 Intake & Output 11/11/18 11/12/18 11/12/18 23:59 11:59 23:59 Intake Total 540 200 Balance 540 200 Weight 203 lb 1.6 oz Intake: Oral 540 200 Other: Voiding Method Toilet # Unmeasured Voids Void 2 3 Bowel Movement No Weight Measurement Method Standing Scale Active Medications Alprazolam (Xanax -) 0.25 mg PO BID PRN PRN Reason: ANXIETY Last Admin: 11/11/18 21:47 Dose: 0.25 mg Bisacodyl (Dulcolax -) 20 mg PO ONCE ONE Stop: 11/12/18 18:01 Budesonide/Formoterol Fumarate (Symbicort 160/4.5mcg -) 1 puff IH BID [facility] Last Admin: 11/12/18 09:43 Dose: 1 puff Fluticasone Propionate (Flonase -) 2 spray NS DAILY [facility] Last Admin: 11/11/18 10:32 Dose: 2 spray Dextrose/Lactated Ringer's (D5-Lr -) 1,000 mls @ 83 mls/hr IV [facility] Polyethylene Glycol (Miralax (For Daily Use) -) 17 gm PO TID [facility] Last Admin: 11/12/18 05:08 Dose: Not Given Sodium Chloride ([place] Nasal [place] -) 2 spray NS Q8H PRN PRN Reason: NASAL CONGESTION Valsartan (Diovan -) 320 mg PO DAILY [facility] Last Admin: 11/12/18 09:44 Dose: 320 mg CBC, BMP 11/12/18 07:00 11/12/18 07:00 Physical Exam Awake/ comfortable lungs- clear cvs-- s1, s2 rrr abd - soft/ obese. ext- no edema neuro- alert/ awake A/p GI Bleed-- h/h stable cad Obesity anxiety stable continue present care oob - chair. 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
[2018-11-12] MEDS ORDERED: DEXTROSE 5%-LACTATED RINGERS 1,000 ML IV SCH (13:00)
[2018-11-12] MEDS ORDERED: BISACODYL 5 MG TABLET.DR (FP) PO ONE (18:00)
[2018-11-12] MEDS: FLUTICASONE PROP 0.05% 16 GM NASAL SPRAY NS SCH (18:46)
[2018-11-13] MEDS: POLYETHYLENE GLYCOL 3350 119 GM BTL PO SCH (05:28)
[2018-11-13 06:03] VITALS: TEMP 98.1
[2018-11-13 06:06] LABS: SERUM IRON SATURATION 18 % (15-55); TOTAL IRON BINDING CAPACITY 344 ug/dL (250-450); UIBC 282 ug/dL (118-369)
[2018-11-13] MEDS: VALSARTAN 160 MG TABLET (UD) PO SCH (09:48)
[2018-11-13] MEDS: BUDESONIDE/FORMETEROL FUMARATE 160/4.5 mcg INHALER IH SCH (09:49)
[2018-11-13] MEDS: FLUTICASONE PROP 0.05% 16 GM NASAL SPRAY NS SCH (09:49)
--- NOTE | 2018-11-13 11:05 | PN ---
Progress Note (short form) - Note Progress Note: GI NOte: Please see scanned colonoscopy report. Suspect resolved hemorrhoidal bleeding although a diverticular bleed cannot be excluded. No GI objections to discharge. 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 (4) Left bundle branch block (LBBB) Code(s): I44.7 - LEFT BUNDLE-BRANCH BLOCK, UNSPECIFIED (5) Arthritis Code(s): M19.90 - UNSPECIFIED OSTEOARTHRITIS, UNSPECIFIED SITE (6) Constipation Code(s): K59.00 - CONSTIPATION, UNSPECIFIED Qualifiers: Constipation type: unspecified constipation type Qualified Code(s): K59.00 - Constipation, unspecified (7) Diverticulitis Code(s): K57.92 - DVTRCLI OF INTEST, PART UNSP, W/O PERF OR ABSCESS W/O BLEED (8) HTN (hypertension) Code(s): I10 - ESSENTIAL (PRIMARY) HYPERTENSION Qualifiers: Hypertension type: essential hypertension Qualified Code(s): I10 - Essential (primary) hypertension
--- NOTE | 2018-11-13 11:55 | PN ---
Progress Note, Physician - Current Medication List Current Medications: Active Medications Alprazolam (Xanax -) 0.25 mg PO BID PRN PRN Reason: ANXIETY Last Admin: 11/11/18 21:47 Dose: 0.25 mg Budesonide/Formoterol Fumarate (Symbicort 160/4.5mcg -) 1 puff IH BID [facility] Last Admin: 11/13/18 09:49 Dose: Not Given Fluticasone Propionate (Flonase -) 2 spray NS DAILY [facility] Last Admin: 11/13/18 09:49 Dose: Not Given Dextrose/Lactated Ringer's (D5-Lr -) 1,000 mls @ 83 mls/hr IV ASDIR [facility] Last Admin: 11/12/18 18:46 Dose: 83 mls/hr Polyethylene Glycol (Miralax (For Daily Use) -) 17 gm PO TID [facility] Last Admin: 11/13/18 05:28 Dose: Not Given Sodium Chloride ([place] Nasal [place] -) 2 spray NS Q8H PRN PRN Reason: NASAL CONGESTION Valsartan (Diovan -) 320 mg PO DAILY [facility] Last Admin: 11/13/18 09:48 Dose: Not Given - Objective Vital Signs: Vital Signs Temperature 98.1 F 11/13/18 10:54 Pulse Rate 71 11/13/18 11:24 Respiratory Rate 18 11/13/18 11:24 Blood Pressure 124/73 11/13/18 11:24 O2 Sat by Pulse Oximetry (%) 100 11/13/18 11:24 Labs: CBC, BMP 11/12/18 07:00 11/12/18 07:00 INR, PTT INR 1.09 (0.83-1.09) 11/09/18 20:00 Assessment/Plan ecg: sr, lbbb echo 07/2015: nl lv/rv, nl valves. E to A reversal. echo 03/2016: nl lv/rv, mild-mod tr, mild pr, rvsp 30-40 cxr: clear lungs a/p: 73 f hx morbid obesity, asthma, htn, venous insuff/le edema here with rectal bleed. abnl ecg: -new lbbb seen on ecg here -no cardiac symptoms, no signs acs, trops neg x2 -does not appear to be any acute cardiac issues presently -rec outpt cardio f/u, elective echo for LV fxn htn: -bp controlled -cont home meds venous insuff/le edema: -stable, minimal le edema nanda: -improving with ivfs gib: -GI following, s/p FOC--suspected resolved hemorrhoidal bleeding > diverticular
[2018-11-13 12:04] VITALS: BP 128/80; PULSE 77
--- NOTE | 2018-11-13 12:46 | DS ---
Physical Examination Vital Signs: Vital Signs Temperature 98.1 F 11/13/18 10:54 Pulse Rate 77 11/13/18 11:30 Respiratory Rate 18 11/13/18 11:30 Blood Pressure 128/80 11/13/18 11:30 O2 Sat by Pulse Oximetry (%) 100 11/13/18 11:30 Findings/Remarks: feels well no complaints Eating lunch Status post colonoscopy----findings noted----discussed with Dr. Roberson also colonoscopy report. Suspect resolved hemorrhoidal bleeding although a diverticular bleed cannot be excluded No further intervention needed at this time stable for discharge as per GI Follow up in office Patient denies pain Comfortable at bedside Constitutional: Yes: No Distress, Calm. No: Mild Distress Eyes: Yes: Conjunctiva Clear Neck: Yes: Supple Cardiovascular: Yes: Regular Rate and Rhythm Respiratory: Yes: CTA Bilaterally Gastrointestinal: Yes: Normal Bowel Sounds, Soft Edema: No Neurological: Yes: Alert Psychiatric: Yes: Alert Labs: CBC, BMP 11/12/18 07:00 11/12/18 07:00 Discharge Summary Reason For Visit: BRIGHT RED BLOOD PER RECTUM Current Active Problems Colouterine fistula (Acute) Left bundle branch block (LBBB) (Acute) Rectal bleeding (Acute) Hospital Course: admitted for GI bleed Status post colonoscopy-- findings as mentioned before stable Discharge home today Discussed in detail with patient and patient's agree with the plan Follow-up with PMD as well as with GI Medications reconciled Will discharge home today. Pt / in agreement Condition: Fair - Instructions Referrals: Valente Connor MD [Primary Care Provider] - Disposition: HOME - Home Medications Comprehensive Discharge Medication List: Ambulatory Orders Alprazolam 0.25 mg PO TID 11/09/18 Budesonide/Formeterol Fumarate [SYMBICORT 160/4.5mcg -] 1 inh PO BID 11/09/18 Olmesartan Medoxomil [Benicar -] 40 mg PO DAILY 11/09/18 Triamterene/Hydrochlorothiazid [Triamterene-Hctz 37.5-25 mg Cp] 1 each PO DAILY 11/09/18 Polyethylene Glycol 3350 [Miralax 119 gm Btl -] 17 gm PO DAILY #1 bottle Sodium Chloride Nasal [place] [[place] Nasal [place] -] 2 spray NS Q8H PRN spray 11/13/18 Valsartan [Diovan] 320 mg PO DAILY tablet 11/13/18
== END 2018-11-13 15:04 | disposition home or self-care (01) | DRG 378 ==
LOC: JER 18:39 → JERBED 22:08 → J5S 11-10 14:44 → OBSVTOIN 11-11 11:59
PROVIDERS: ADMIT Internal Medicine; ATTEND Internal Medicine
PROC: 0DJD8ZZ Inspection of Lower Intestinal Tract, Via Natural or Artificial Opening Endoscopic (ICD-10-PCS; principal; 2018-11-13 10:00)
DX: K57.31 Diverticulosis of large intestine without perforation or abscess with bleeding (principal); N17.9 Acute kidney failure, unspecified; N82.8 Other female genital tract fistulae; K92.2 Gastrointestinal hemorrhage, unspecified; I44.7 Left bundle-branch block, unspecified; I10 Essential (primary) hypertension; J45.909 Unspecified asthma, uncomplicated; K59.09 Other constipation; M19.90 Unspecified osteoarthritis, unspecified site; E66.9 Obesity, unspecified; Z68.36 Body mass index [BMI] 36.0-36.9, adult; R94.31 Abnormal electrocardiogram [ECG] [EKG]; I87.2 Venous insufficiency (chronic) (peripheral); I25.10 Atherosclerotic heart disease of native coronary artery without angina pectoris; K57.30 Diverticulosis of large intestine without perforation or abscess without bleeding; K64.4 Residual hemorrhoidal skin tags; F41.9 Anxiety disorder, unspecified; Z96.652 Presence of left artificial knee joint; Z87.891 Personal history of nicotine dependence
CPT/HCPCS: 36415; 71045-TC-FY; 80048; 80053; 82272; 82550; 82728; 83540; 83550; 84484; 85025; 85044; 85610; 85730; 86850; 86900; 86901; 93005; 93010; 99283-25; G0378; J7030

== ENCOUNTER 2019-10-12 20:55 | Inpatient (IN) | payer OTHER ==
--- NOTE | 2019-10-12 21:01 | PDOC ---
Rapid Medical Evaluation Time Seen by Provider: 10/12/19 20:57 Medical Evaluation: Allergies Allergy/AdvReac Type Severity Reaction Status Date / Time PRINCESS Inhibitors Allergy Severe TONGUE Verified 11/09/18 18:48 SWELLING, RASH 10/12/19 20:58 CC: SOB, bloated feeling in her abdomen and "I think my uterus fell out." PE: Lungs CTAB. Speaking in long sentences. Abd SNTND. BLE swelling- no edema. animal skinner deferred. Orders: labs, cxr, ekg Patient will proceed to ED for evaluation. Discharge Disposition - Diagnosis SOB (shortness of breath) - Referrals - Patient Instructions - Post Discharge Activity
[2019-10-12 21:41] LABS: BASO % 0.6 % (0-2.0); EOS % 0.9 % (0-4.5); HEMATOCRIT 30.7 % (32.4-45.2); HEMOGLOBIN 10.2 GM/dL (10.7-15.3); LYMPH % 17.4 % (8-40); MCH 27.8 pg (25.7-33.7); MCHC 33.2 g/dl (32.0-36.0); MEAN CELL VOLUME 83.5 fl (80-96); MEAN PLT VOLUME 8.5 fl (7.5-11.1); MONO % 7.3 % (3.8-10.2); NEUT % 73.8 % (42.8-82.8); PLATELET COUNT 215 K/MM3 (134-434); RBC 3.67 M/mm3 (3.60-5.2); RDW 15.5 % (11.6-15.6); WHITE BLOOD COUNT 9.4 K/mm3 (4.0-10.0)
[2019-10-12 22:14] LABS: BILIRUBIN,TOTAL 0.5 mg/dL (0.2-1); BLOOD UREA NITROGEN 29.8 mg/dL (7-18); CALCIUM 9.2 mg/dL (8.5-10.1); MAGNESIUM 1.8 mg/dL (1.8-2.4); N-TERMINAL BNP 2236.1 pg/ml (5-450); TOT PROT 7.5 g/dl (6.4-8.2)
--- NOTE | 2019-10-12 22:28 | PDOC ---
History of Present Illness - General Chief Complaint: Shortness of Breath Stated Complaint: DIFFICULTY BREATHING Time Seen by Provider: 10/12/19 20:57 History Source: Patient - History of Present Illness Initial Comments: 74F PMH CHF, HTN, uterine prolapse? presenting with uterine burning x "few days " w/o vaginal discharge or bleeding. Endorses dysuria. Denies incontinence? also endorses gas sensation in the epigastrium that she "can't burp up." no chest or shortness of breath. endorses poor appetite x months; no abdominal pain. Pt poor historian w/ very limited insight into her symptoms and her current and past medical hx. Past History - Past Medical History Allergies/Adverse Reactions: Allergies Allergy/AdvReac Type Severity Reaction Status Date / Time PRINCESS Inhibitors Allergy Severe TONGUE Verified 10/12/19 21:03 SWELLING, RASH Home Medications: Ambulatory Orders Alprazolam 0.25 mg PO TID 11/09/18 Budesonide/Formeterol Fumarate [SYMBICORT 160/4.5mcg -] 1 inh PO BID 11/09/18 Olmesartan Medoxomil [Benicar -] 40 mg PO DAILY 11/09/18 Polyethylene Glycol 3350 [Miralax 119 gm Btl -] 17 gm PO DAILY #1 bottle Sodium Chloride Nasal [place] [[place] Nasal [place] -] 2 spray NS Q8H PRN spray 11/13/18 Albuterol Sulfate [Proair Hfa] 8.5 gm IH DAILY 10/12/19 Clonidine HCl [Clonidine HCl ER] 0.1 mg PO BID 10/12/19 Fluticasone Propionate [Flonase Allergy Relief] 9.9 ml NS DAILY 10/12/19 Omeprazole 40 mg PO DAILY 10/12/19 Tramadol HCl 50 mg PO TID PRN MDD 150 10/12/19 Amlodipine Besylate [Norvasc -] 10 mg PO DAILY 30 Days #30 tablet 10/15/19 Nitrofurantoin Monohyd/M-Cryst [Macrobid -] 100 mg PO BID 3 Days #6 capsule Sennosides [Senna -] 2 tab PO HS PRN tablet 10/15/19 Anemia: No Asthma: Yes Cancer: No Cardiac Disorders: Yes (ANGINA) CVA: No COPD: Yes CHF: No Dementia: No Diabetes: No GI Disorders: Yes (gerd, rectal bleeding) Disorders: Yes (FREQUENT UTI'S) HTN: Yes Hypercholesterolemia: Yes Liver Disease: No Psychiatric Problems: Yes Seizures: No Thyroid Disease: No - Surgical History Abdominal Surgery: Yes Appendectomy: Yes (AT AGE 2) Cardiac Surgery: No Cholecystectomy: Yes (OPEN-) Lung Surgery: No Neurologic Surgery: No Orthopedic Surgery: Yes (LEFT ROTATOR CUFF-2014) - Immunization History Immunization Up to Date: Yes - Psycho Social/Smoking Cessation Hx Smoking History: Never smoked Have you smoked in the past 12 months: No Number of Cigarettes Smoked Daily: 0 If you are a former smoker, when did you quit?: about 27 yrs ago 'Breaking Loose' booklet given: 09/12/13 Hx Alcohol Use: No (not for many years) Drug/Substance Use Hx: No Substance Use Type: None Hx Substance Use Treatment: No Review of Systems - Review of Systems Able to Perform ROS?: Yes Comments:: CONSTITUTIONAL: Denies F / C RESP: Denies SOB CARD: Denies chest pain GI: Denies N / V / D, abdominal pain, bloody stool, inability to tolerate PO : endorses dysuria SKIN: Denies rashes NEURO: Denies numbness, tingling, weakness *Physical Exam - Vital Signs Last Vital Signs Temp Pulse Resp BP Pulse Ox 97 F L 87 18 177/54 H 99 10/12/19 20:58 10/12/19 20:58 10/12/19 20:58 10/12/19 20:58 10/12/19 20:58 - Physical Exam GEN: NAD, comfortable, obese. AAOx3. HEENT: NC/AT. No facial asymmetry. Normal voice. Supple neck w/ FROM. CV: S1/S2, RRR, no m/r/g LUNG: CTAB, no wheezes, crackles, rales, rhonchi. GI: +epigastric ttp o/w soft, obese, nondistended, +BS. PELVIC: Exam chaperoned by MD Jaime. No discharge, bleeding, and atrophy on inspection. Cervical os visualized and closed with no active bleeding or tissue projection. No blood in vault. Neg CMT on bimanual exam. MSK: B/L LE swelling w/o pitting edema. No obvious deformities of all extremities. SKIN: Warm, dry, no rashes appreciated. PSYCH: odd affect ED Treatment Course - LABORATORY CBC & Chemistry Diagram: 10/15/19 07:50 10/15/19 07:50 - ADDITIONAL ORDERS Additional order review: Laboratory Results 10/12/19 10/12/19 21:21 21:21 Sodium 135 L Potassium 4.0 Chloride 103 Carbon Dioxide 22 Anion Gap 10 BUN 29.8 H Creatinine 2.0 H Est GFR (CKD-EPI)AfAm 27.41 Est GFR (CKD-EPI)NonAf 23.65 Random Glucose 119 H Calcium 9.2 Magnesium 1.8 Total Bilirubin 0.5 AST 21 ALT 18 Alkaline Phosphatase 108 Creatine Kinase 62 Troponin I < 0.02 B-Natriuretic Peptide 2236.1 H Total Protein 7.5 Albumin 3.0 L 10/12/19 21:21 RBC 3.67 MCV 83.5 MCHC 33.2 RDW 15.5 MPV 8.5 Neutrophils % 73.8 D Lymphocytes % 17.4 D Monocytes % 7.3 Eosinophils % 0.9 D Basophils % 0.6 Medical Decision Making - Medical Decision Making 10/12/19 22:27 74F PMH CHF, HTN, uterine prolapse? presenting with uterine burning and epigastric pain and gas sensation. Poor historian. - cbc, cmp, cardiac - cxr, ekg - ua Discharge - Discharge Information Problems reviewed: Yes Clinical Impression/Diagnosis: SOB (shortness of breath) Condition: Stable - Follow up/Referral - Patient Discharge Instructions - Post Discharge Activity
--- NOTE | 2019-10-12 23:20 | PDOC ---
Attending Attestation - Resident Resident Name: Vincent Ruth - ED Attending Attestation I have performed the following: I have examined & evaluated the patient, The case was reviewed & discussed with the resident, I agree w/resident's findings & plan - HPI HPI: 10/13/19 03:06 Pt comes with SOB and suprapubic pain. States that she has not been feeling well and thus not eating. States that she doesn't eat saltty foods, but eat fried chicken and beef stew and we had a discussion of the merits of eating low salt and veggies. - Physicial Exam PE: 10/13/19 03:07 Pt has minimal 1+ pitting edema of the legs. She has congestion in her lungs best heard in the RML Heart rate RRR abd soft NT ND + suprapubic pain. Residents performed vag exam that was normal Neuro intact, Pt is afebrile No rashes - Medical Decision Making 10/13/19 01:13 Pt has a large urine infection 10/13/19 03:08 Pt has normal CXR and renal US; pt's exam is essentially normal; however some lower abd pain
[2019-10-12 23:29] LABS: EPI CELLS 7.3 /HPF (0-5/HPF); HYALINE CASTS 68 /lpf (0-8); URINE APPEARANCE TURBID; URINE BACTERIA >9000 /hpf (NEGATIVE); URINE BILIRUBIN NEGATIVE (NEGATIVE); URINE COLOR YELLOW; URINE GLUCOSE (UA) NEGATIVE (NEGATIVE); URINE KETONE NEGATIVE (NEGATIVE); URINE LEUK ESTERASE 3+ (NEGATIVE); URINE NITRITE NEGATIVE (NEGATIVE); URINE PROTEIN 3+ (NEGATIVE); URINE WBC 772 /hpf (0-5)
[2019-10-13] MEDS ORDERED: CEFTRIAXONE 1 GM in DEXTROSE 5%-WATER - 100 ML IVPB ONE (00:04)
[2019-10-13] MEDS ORDERED: SODIUM CHLORIDE 0.9% 500 ML INFUS.BAG IV ONE (00:05)
[2019-10-13] MEDS ORDERED: CEFTRIAXONE 1 GM/50 ML BAG ONE (00:45)
[2019-10-13] MEDS ORDERED: ACETAMINOPHEN 325 MG TABLET (FP) PO PRN (01:40)
--- NOTE | 2019-10-13 01:52 | HP ---
CHIEF COMPLAINT: difficulty swallowing and pain during urination PCP: White Cain HISTORY OF PRESENT ILLNESS: 74 y/o M, pmh of HTN, asthma, OA, GERD, unknown eye problem, diverticulosis, status post cholecystectomy, appendectomy, rectal bleed, morbidly obese presents to the ED c/o of difficulty swallowing, intermitent parasternal chest pain of a few days duration. Pt states she get regurgitation during which she feels like her throat is dry and something is stuck in her food pipe, along with some parasternal chest pain. She also reports shortness of breath on exertion or climbing stairs. She has never been diagnosed with any heart conditions. In the ED, she was found to have a UTI on UA and questionable mild infiltrates on CXR. She denies any f/c/n/v/d/sob/abdominal pain. ER course was notable for: (1) CXR- pending official read (2) Ceftriaxone 1 g (3) Recent Travel: denies PAST MEDICAL HISTORY: HTN, asthma, OA, GERD, unknown eye problem, diverticulosis, status post cholecystectomy, appendectomy, rectal bleed, morbidly obese PAST SURGICAL HISTORY: status post cholecystectomy, appendectomy, Social History: Smoking:denies Alcohol:denies Drugs: denies Allergies PRINCESS Inhibitors Allergy (Severe, Verified 10/12/19 21:03) TONGUE SWELLING, RASH HOME MEDICATIONS: Home Medications Medication Instructions Recorded Alprazolam 0.25 mg PO TID 11/09/18 Budesonide/Formeterol Fumarate 1 inh PO BID 11/09/18 [SYMBICORT 160/4.5mcg -] Olmesartan Medoxomil [Benicar -] 40 mg PO DAILY 11/09/18 Triamterene/Hydrochlorothiazid 1 each PO DAILY 11/09/18 [Triamterene-Hctz 37.5-25 mg Cp] Polyethylene Glycol 3350 [Miralax 17 gm PO DAILY #1 bottle 11/13/18 119 gm Btl -] Sodium Chloride Nasal [place] [[place] 2 spray NS Q8H PRN spray 11/13/18 [place] Nasal [place] -] Valsartan [Diovan] 320 mg PO DAILY tablet 11/13/18 Albuterol Sulfate [Proair Hfa] 8.5 gm IH DAILY 10/12/19 Clonidine HCl [Clonidine HCl ER] 0.1 mg PO BID 10/12/19 Fluticasone Propionate [Flonase 9.9 ml NS DAILY 10/12/19 Allergy Relief] Naproxen 500 mg PO BID 10/12/19 Omeprazole 40 mg PO DAILY 10/12/19 Tramadol HCl 50 mg PO TID PRN MDD 150 10/12/19 REVIEW OF SYSTEMS CONSTITUTIONAL: Absent: fever, chills, diaphoresis, HEENT: Admits: difficulty swallowing, Absent: rhinorrhea, nasal congestion, throat pain, mouth swelling, ear pain, eye pain, visual changes CARDIOVASCULAR: Absent: chest pain, syncope, palpitations, irregular heart rate RESPIRATORY: Absent: cough, shortness of breath, dyspnea with exertion, orthopnea, GASTROINTESTINAL: Absent: abdominal pain, abdominal distension, nausea, vomiting, diarrhea, GENITOURINARY: Admits: genital pain, dysuria Absent: frequency, urgency, hesitancy, hematuria, flank pain, NEUROLOGIC: Absent: headache, focal weakness or paresthesias, PSYCHIATRIC: Absent: anxiety, depression, PHYSICAL EXAMINATION Vital Signs - 24 hr 10/12/19 20:58 Temperature 97 F L Pulse Rate 87 Respiratory 18 Rate Blood Pressure 177/54 H O2 Sat by Pulse 99 Oximetry (%) GENERAL: Awake, alert, and fully oriented, in no acute distress. EYES: Pupils equal, round and reactive to light, extraocular movements intact EARS, NOSE, THROAT: Dry mucous membranes. LUNGS: Breath sounds equal, clear to auscultation bilaterally. No wheezes, and no crackles. HEART: Regular rate and rhythm, normal S1 and S2 without murmur, rub or gallop. ABDOMEN: Soft, nontender, not distended, normoactive bowel sounds, no guarding, no rebound, no masses. Obese MUSCULOSKELETAL: No CVA tenderness. UPPER EXTREMITIES: 2+ pulses, warm, well-perfused. No cyanosis. LOWER EXTREMITIES: 2+ pulses, warm, well-perfused. No calf tenderness. 3+ nonpitting edema b/l PSYCHIATRIC: Cooperative. Good eye contact. SKIN: Warm, dry, normal turgor, Laboratory Results - last 24 hr 10/12/19 10/12/19 10/12/19 21:21 21:21 21:21 WBC 9.4 RBC 3.67 Hgb 10.2 L Hct 30.7 L MCV 83.5 MCH 27.8 MCHC 33.2 RDW 15.5 Plt Count 215 MPV 8.5 Absolute Neuts (auto) 6.9 Neutrophils % 73.8 D Lymphocytes % 17.4 D Monocytes % 7.3 Eosinophils % 0.9 D Basophils % 0.6 Nucleated RBC % 0 Sodium 135 L Potassium 4.0 Chloride 103 Carbon Dioxide 22 Anion Gap 10 BUN 29.8 H Creatinine 2.0 H Est GFR (CKD-EPI)AfAm 27.41 Est GFR (CKD-EPI)NonAf 23.65 Random Glucose 119 H Calcium 9.2 Magnesium 1.8 Total Bilirubin 0.5 AST 21 ALT 18 Alkaline Phosphatase 108 Creatine Kinase 62 Troponin I < 0.02 B-Natriuretic Peptide 2236.1 H Total Protein 7.5 Albumin 3.0 L Urine Color Urine Appearance Urine pH Ur Specific [place] Urine Protein Urine Glucose (UA) Urine Ketones Urine Blood Urine Nitrite Urine Bilirubin Urine Urobilinogen Ur Leukocyte Esterase Urine WBC (Auto) Urine Casts (Auto) U Epithel Cells (Auto) Urine Bacteria (Auto) 10/12/19 23:00 WBC RBC Hgb Hct MCV MCH MCHC RDW Plt Count MPV Absolute Neuts (auto) Neutrophils % Lymphocytes % Monocytes % Eosinophils % Basophils % Nucleated RBC % Sodium Potassium Chloride Carbon Dioxide Anion Gap BUN Creatinine Est GFR (CKD-EPI)AfAm Est GFR (CKD-EPI)NonAf Random Glucose Calcium Magnesium Total Bilirubin AST ALT Alkaline Phosphatase Creatine Kinase Troponin I B-Natriuretic Peptide Total Protein Albumin Urine Color Yellow Urine Appearance Turbid Urine pH 8.0 Ur Specific [place] 1.017 Urine Protein 3+ H Urine Glucose (UA) Negative Urine Ketones Negative Urine Blood 3+ H Urine Nitrite Negative Urine Bilirubin Negative Urine Urobilinogen 1.0 Ur Leukocyte Esterase 3+ H Urine WBC (Auto) 772 Urine Casts (Auto) 68 U Epithel Cells (Auto) 7.3 Urine Bacteria (Auto) >9000 ASSESSMENT/PLAN: 74 y/o M, pmh of HTN, asthma, OA, GERD, unknown eye problem, diverticulosis, status post cholecystectomy, appendectomy, rectal bleed, morbidly obese presents to the ED c/o of difficulty swallowing, intermitent parasternal chest pain of a few days duration is admitted for dysphagia + UTI #UTI Dysuria and suprapubic tenderness UA positive - LE 3+, Blood 3+, protein 3+ Ceftriaxone 1g #Dysphagia likely 2/2 to GERD Protonix one time now continue Home dose omeprazole Barium swallow for tomorrow #DARREN IVF at 48 pt has b/l edema and infiltrate on CXR, could be fluid so have to cautious with fluids cre at 2 will trend Renal US #HTN home meds- clonidine, valsartan #Asthma albuterol #DVT ppx heparin TID FEN monitor lytes IVF at 50 NPO Dispo: f/u US, f/u barium swallow Visit type - Emergency Visit Emergency Visit: Yes ED Registration Date: 10/13/19 Care time: The patient presented to the Emergency Department on the above date and was hospitalized for further evaluation of their emergent condition. - New Patient This patient is new to me today: Yes Date on this admission: 10/15/19 - Critical Care Critical Care patient: No ATTENDING PHYSICIAN STATEMENT I saw and evaluated the patient. I reviewed the resident's note and discussed the case with the resident. I agree with the resident's findings and plan as documented. SUBJECTIVE: OBJECTIVE: ASSESSMENT AND PLAN:
--- NOTE | 2019-10-13 01:57 | PN ---
Teaching Attending Note Name of Resident: Cain Thompson ATTENDING PHYSICIAN STATEMENT I saw and evaluated the patient. I reviewed the resident's note and discussed the case with the resident. I agree with the resident's findings and plan as documented. SUBJECTIVE: 74-year-old woman with a history of hypertension, asthma, diverticulosis, status post cholecystectomy, appendectomy, rectal bleed, arthritis, morbidly obese presented with Difficulty swallowing liquids, saying that his food is stuck in her throat.Also complaining of some gas and thinks she may have heartburn.Patient also complained of some burning with urination. OBJECTIVE: Last Vital Signs Temp Pulse Resp BP Pulse Ox 97 F L 87 18 177/54 H 99 10/12/19 20:58 10/12/19 20:58 10/12/19 20:58 10/12/19 20:58 10/12/19 20:58 On physical exam patient was an elderly, morbidly obese woman in no apparent distress. Head was normocephalic and atraumatic, no rashes noted on skin. Normal heart sounds with no murmurs appreciated. Lungs were clear to auscultation bilaterally. Abdomen was soft and nontender. Mild pedal edema bilaterally. No CVA tenderness appreciated. Abnormal Lab Results 10/12/19 10/12/19 10/12/19 21:21 21:21 23:00 Hgb 10.2 L Hct 30.7 L Sodium 135 L BUN 29.8 H Creatinine 2.0 H Random Glucose 119 H B-Natriuretic Peptide 2236.1 H Albumin 3.0 L Urine Protein 3+ H Urine Blood 3+ H Ur Leukocyte Esterase 3+ H Imaging studies reviewed ASSESSMENT AND PLAN: #Dysphagia/GERD N.p.o. Barium swallow Pepcid IV #UTIUA positive for pyuria, many bacteria Urine culture Rocephin 1 g every 24 hours #DARREN on CKD IV fluid hydration Avoid nephrotoxins IV Urine lites I's and O's and daily weights #Normocytic anemiachronic Iron studies, ferritin level, vitamin B 12 #Morbid obesity #Hypoalbuminemia #Hypertension Continue clonidine 0.1 mg p.o. twice daily Continue with valsartan home dose #GERD Continue with omeprazole #DVT prophylaxisheparin subcutaneously
[2019-10-13] MEDS ORDERED: SODIUM CHLORIDE 1,000 ML IV SCH (02:15)
[2019-10-13] MEDS ORDERED: PANTOPRAZOLE 40 MG TABLET PO ONE (04:14)
[2019-10-13 04:27] LABS: INR 1.22 (0.83-1.09); PROTHROMBIN TIME (PATIENT) 14.4 SEC (9.7-13.0)
[2019-10-13 04:30] LABS: ACTIVATED PTT 32.3 SECONDS (25.2-36.5)
[2019-10-13] MEDS ORDERED: PANTOPRAZOLE 40 MG TABLET ONE ×2 (05:22→10:14)
[2019-10-13] MEDS: HEPARIN NA (PORCINE) 5,000 UNITS/ML 1ML VIAL SQ SCH ×4 (05:26→22:05)
[2019-10-13 05:28] LABS: URINE RBC 15 /hpf (0-4)
[2019-10-13 07:20] LABS: BASO % 0.6 % (0-2.0); EOS % 2.3 % (0-4.5); HEMATOCRIT 28.4 % (32.4-45.2); HEMOGLOBIN 9.7 GM/dL (10.7-15.3); LYMPH % 17.3 % (8-40); MCH 28.3 pg (25.7-33.7); MCHC 34.1 g/dl (32.0-36.0); MEAN PLT VOLUME 8.6 fl (7.5-11.1); MONO % 9.1 % (3.8-10.2); NEUT % 70.7 % (42.8-82.8); PLATELET COUNT 223 K/MM3 (134-434); RBC 3.42 M/mm3 (3.60-5.2); RDW 15.5 % (11.6-15.6); WHITE BLOOD COUNT 8.5 K/mm3 (4.0-10.0)
[2019-10-13 07:54] LABS: ALBUMIN 2.8 g/dl (3.4-5.0); BILIRUBIN,TOTAL 0.5 mg/dL (0.2-1); BLOOD UREA NITROGEN 28.3 mg/dL (7-18); CREATININE 1.7 mg/dL (0.55-1.3); MAGNESIUM 2.1 mg/dL (1.8-2.4); POTASSIUM 4.1 mmol/L (3.5-5.1)
[2019-10-13] MEDS ORDERED: VALSARTAN 160 MG TABLET (UD) PO SCH (10:00)
[2019-10-13] MEDS ORDERED: cloNIDine HCL 0.1 MG TABLET ONE (10:14)
[2019-10-13] MEDS: cloNIDine HCL 0.1 MG TABLET PO SCH ×2 (10:27→21:38)
[2019-10-13] MEDS: CEFTRIAXONE 1 GM in DEXTROSE 5%-WATER - 50 ML IVPB SCH (10:28)
[2019-10-13] MEDS: PANTOPRAZOLE 40 MG TABLET PO SCH (10:28)
--- NOTE | 2019-10-13 10:34 | EKG ---
Test Reason : Blood Pressure : / mmHG Vent. Rate : 086 BPM Atrial Rate : 086 BPM P-R Int : 212 ms QRS Dur : 136 ms QT Int : 390 ms P-R-T Axes : 087 -32 115 degrees QTc Int : 466 ms POOR DATA QUALITY, INTERPRETATION MAY BE ADVERSELY AFFECTED SINUS RHYTHM WITH 1ST DEGREE A-V BLOCK WITH OCCASIONAL PREMATURE VENTRICULAR COMPLEXES LEFT AXIS DEVIATION LEFT BUNDLE BRANCH BLOCK ABNORMAL ECG WHEN COMPARED WITH ECG OF 09-NOV-2018 21:24, PREMATURE VENTRICULAR COMPLEXES ARE NOW PRESENT Confirmed by REYNALDO ROUSE MD ([id number]) on 10/13/2019 10:34:13 AM Referred By: Confirmed By:REYNALDO ROUSE MD
--- NOTE | 2019-10-13 12:04 | PN ---
Progress Note, Physician History of Present Illness: Pt seen/ examined in er chart is reviewed awake/ comfortable feels better denies cp says she had stomach upset afebrile - Current Medication List Current Medications: Active Medications Acetaminophen (Tylenol -) 650 mg PO Q4H PRN PRN Reason: PAIN LEVEL 4 - 6 Albuterol Sulfate (Ventolin Hfa Inhaler -) 1 puff IH DAILY [facility] Budesonide/Formoterol Fumarate (Symbicort 160/4.5mcg -) 1 puff IH BID [facility] Clonidine (Catapres -) 0.1 mg PO BID [facility] Last Admin: 10/13/19 10:27 Dose: 0.1 mg Heparin Sodium (Porcine) (Heparin -) 5,000 unit SQ TID [facility] Last Admin: 10/13/19 05:26 Dose: Not Given Ceftriaxone Sodium 1 gm/ (Dextrose) 50 mls @ 200 mls/hr IVPB DAILY [facility]; Protocol Last Admin: 10/13/19 10:28 Dose: 200 mls/hr Sodium Chloride (Normal Saline -) 1,000 mls @ 50 mls/hr IV ASDIR [facility] Stop: 10/14/19 02:04 Last Admin: 10/13/19 02:42 Dose: 50 mls/hr Insulin Aspart (Novolog Vial Sliding Scale -) 1 vial SQ ACHS [facility]; Protocol Pantoprazole Sodium (Protonix -) 40 mg PO DAILY [facility] Last Admin: 10/13/19 10:28 Dose: 40 mg Sodium Chloride ([place] Nasal [place] -) 2 spray NS Q8H PRN PRN Reason: NASAL CONGESTION Tramadol HCl (Ultram -) 50 mg PO TID PRN PRN Reason: PAIN LEVEL 6-10 Valsartan (Diovan -) 320 mg PO DAILY [facility] Last Admin: 10/13/19 10:27 Dose: 320 mg - Objective Vital Signs: Vital Signs Temperature 97.6 F 10/13/19 10:00 Pulse Rate 79 10/13/19 10:00 Respiratory Rate 22 H 10/13/19 10:00 Blood Pressure 149/70 10/13/19 10:00 O2 Sat by Pulse Oximetry (%) 96 10/13/19 10:00 Constitutional: Yes: No Distress, Calm Eyes: Yes: Conjunctiva Clear Neck: Yes: Supple Cardiovascular: Yes: Regular Rate and Rhythm Respiratory: Yes: CTA Bilaterally Gastrointestinal: Yes: Soft, Abdomen, Obese Edema: No Neurological: Yes: Alert Labs: CBC, BMP 10/13/19 05:42 10/13/19 05:42 INR, PTT INR 1.22 (0.83-1.09) H 10/12/19 21:02 Problem List - Problems (1) GERD (gastroesophageal reflux disease) Code(s): K21.9 - GASTRO-ESOPHAGEAL REFLUX DISEASE WITHOUT ESOPHAGITIS (2) Acute renal failure (ARF) Code(s): N17.9 - ACUTE KIDNEY FAILURE, UNSPECIFIED (3) HTN (hypertension) Code(s): I10 - ESSENTIAL (PRIMARY) HYPERTENSION Qualifiers: Hypertension type: essential hypertension Qualified Code(s): I10 - Essential (primary) hypertension (4) Obesity Code(s): E66.9 - OBESITY, UNSPECIFIED Qualifiers: Obesity type: due to excess calories Obesity classification: adult class 2 (BMI 35 - 39.9) Body mass index: BMI 36.0-36.9 (5) UTI (urinary tract infection) Code(s): N39.0 - URINARY TRACT INFECTION, SITE NOT SPECIFIED Qualifiers: Urinary tract infection type: acute cystitis Hematuria presence: without hematuria Qualified Code(s): N30.00 - Acute cystitis without hematuria Assessment/Plan Discussed abx f/u cultures f/u labs cr better d/c ibeth for now will follow
[2019-10-13] MEDS: ALBUTEROL SO4 HFA INHALER IH SCH (12:29)
[2019-10-13] MEDS: BUDESONIDE/FORMETEROL FUMARATE 160/4.5 mcg INHALER IH SCH ×2 (12:29→23:08)
[2019-10-13] MEDS: INSULIN SLIDING SCALE (NOVOLOG) 1 VIAL SQ SCH ×4 (12:29→21:33)
[2019-10-13] MEDS: amLODIPine BESYLATE 5 MG TABLET (FP) PO SCH ×2 (13:28→13:46)
[2019-10-13] MEDS ORDERED: amLODIPine BESYLATE 5 MG TABLET (FP) ONE (13:30)
[2019-10-13] MEDS: traMADol HCL 50 MG TABLET PO PRN (21:37)
[2019-10-13] MEDS: SIMETHICONE 40 MG/0.6 ML BOTTLE PO PRN (23:08)
[2019-10-14 03:51] VITALS: BMI 36.1
[2019-10-14] MEDS: SODIUM CHLORIDE NASAL SPRAY 44 ML BOTTLE NS PRN ×2 (05:01→21:38)
[2019-10-14] MEDS: SIMETHICONE 40 MG/0.6 ML BOTTLE PO PRN ×2 (05:02→10:57)
[2019-10-14] MEDS: HEPARIN NA (PORCINE) 5,000 UNITS/ML 1ML VIAL SQ SCH ×3 (05:54→21:27)
[2019-10-14] MEDS: INSULIN SLIDING SCALE (NOVOLOG) 1 VIAL SQ SCH ×4 (06:09→21:33)
[2019-10-14 08:45] LABS: BASO % 0.9 % (0-2.0); EOS % 4.7 % (0-4.5); HEMOGLOBIN 9.4 GM/dL (10.7-15.3); LYMPH % 22.9 % (8-40); MCH 27.8 pg (25.7-33.7); MCHC 33.4 g/dl (32.0-36.0); MEAN CELL VOLUME 83.4 fl (80-96); MEAN PLT VOLUME 8.4 fl (7.5-11.1); MONO % 9.3 % (3.8-10.2); NEUT % 62.2 % (42.8-82.8); PLATELET COUNT 215 K/MM3 (134-434); RBC 3.36 M/mm3 (3.60-5.2); RDW 15.5 % (11.6-15.6); WHITE BLOOD COUNT 6.6 K/mm3 (4.0-10.0)
[2019-10-14 09:22] LABS: ALBUMIN 2.5 g/dl (3.4-5.0); BILIRUBIN,TOTAL 0.5 mg/dL (0.2-1); BLOOD UREA NITROGEN 24.3 mg/dL (7-18); CALCIUM 8.6 mg/dL (8.5-10.1); CREATININE 1.5 mg/dL (0.55-1.3); TOT PROT 6.5 g/dl (6.4-8.2)
[2019-10-14] MEDS ORDERED: PT OWN MED DRAWER 7, Y5N ONE ×3 (09:55→11:21)
[2019-10-14] MEDS ORDERED: cefTRIAXone SODIUM 1 GM VIAL ONE (09:55)
[2019-10-14] MEDS ORDERED: DEXTROSE 5%-WATER - 50 ML IVPB ONE (09:55)
[2019-10-14] MEDS: CEFTRIAXONE 1 GM in DEXTROSE 5%-WATER - 50 ML IVPB SCH (09:59)
[2019-10-14] MEDS: BUDESONIDE/FORMETEROL FUMARATE 160/4.5 mcg INHALER IH SCH ×2 (09:59→21:29)
[2019-10-14] MEDS: PANTOPRAZOLE 40 MG TABLET PO SCH (10:24)
[2019-10-14] MEDS: cloNIDine HCL 0.1 MG TABLET PO SCH ×2 (10:25→21:26)
[2019-10-14] MEDS: amLODIPine BESYLATE 5 MG TABLET (FP) PO SCH (10:25)
[2019-10-14] MEDS: ALBUTEROL SO4 HFA INHALER IH SCH (11:22)
--- NOTE | 2019-10-14 11:58 | PN ---
Progress Note, Physician History of Present Illness: Pt seen/ examined awake/ comfortable feels better denies cp feels constipated looks better some swelling on hard palate-- concerned afebrile - Current Medication List Current Medications: Active Medications Acetaminophen (Tylenol -) 650 mg PO Q4H PRN PRN Reason: PAIN LEVEL 4 - 6 Albuterol Sulfate (Ventolin Hfa Inhaler -) 1 puff IH DAILY [facility] Last Admin: 10/14/19 11:22 Dose: 1 puff Amlodipine Besylate (Norvasc -) 10 mg PO DAILY [facility] Budesonide/Formoterol Fumarate (Symbicort 160/4.5mcg -) 1 puff IH BID [facility] Last Admin: 10/14/19 09:59 Dose: 1 puff Clonidine (Catapres -) 0.1 mg PO BID [facility] Last Admin: 10/14/19 10:25 Dose: 0.1 mg Heparin Sodium (Porcine) (Heparin -) 5,000 unit SQ TID [facility] Last Admin: 10/14/19 05:54 Dose: Not Given Ceftriaxone Sodium 1 gm/ (Dextrose) 50 mls @ 200 mls/hr IVPB DAILY [facility]; Protocol Last Admin: 10/14/19 09:59 Dose: 200 mls/hr Insulin Aspart (Novolog Vial Sliding Scale -) 1 vial SQ ACHS [facility]; Protocol Last Admin: 10/14/19 10:57 Dose: Not Given Pantoprazole Sodium (Protonix -) 40 mg PO DAILY [facility] Last Admin: 10/14/19 10:24 Dose: 40 mg Simethicone (Mylicon Liquid -) 40 mg PO QID PRN PRN Reason: GAS Last Admin: 10/14/19 10:57 Dose: 40 mg Sodium Chloride ([place] Nasal [place] -) 2 spray NS Q8H PRN PRN Reason: NASAL CONGESTION Last Admin: 10/14/19 05:01 Dose: 2 spray Tramadol HCl (Ultram -) 50 mg PO TID PRN PRN Reason: PAIN LEVEL 6-10 Last Admin: 10/13/19 21:37 Dose: 50 mg - Objective Vital Signs: Vital Signs Temperature 97.9 F 10/14/19 08:04 Pulse Rate 70 10/14/19 08:04 Respiratory Rate 16 10/14/19 08:04 Blood Pressure 149/73 10/14/19 08:04 O2 Sat by Pulse Oximetry (%) 96 10/14/19 09:00 Constitutional: Yes: No Distress, Obese Eyes: Yes: Conjunctiva Clear HENT: Yes: WNL (about 2 cm hard bony growth - hard palate), Other Neck: Yes: Supple Cardiovascular: Yes: Regular Rate and Rhythm Respiratory: Yes: CTA Bilaterally Gastrointestinal: Yes: Soft, Abdomen, Obese Edema: No Neurological: Yes: Alert Labs: CBC, BMP 10/14/19 08:00 10/14/19 08:00 INR, PTT INR 1.22 (0.83-1.09) H 10/12/19 21:02 Problem List - Problems (1) GERD (gastroesophageal reflux disease) Code(s): K21.9 - GASTRO-ESOPHAGEAL REFLUX DISEASE WITHOUT ESOPHAGITIS (2) Acute renal failure (ARF) Code(s): N17.9 - ACUTE KIDNEY FAILURE, UNSPECIFIED (3) HTN (hypertension) Code(s): I10 - ESSENTIAL (PRIMARY) HYPERTENSION Qualifiers: Hypertension type: essential hypertension Qualified Code(s): I10 - Essential (primary) hypertension (4) Obesity Code(s): E66.9 - OBESITY, UNSPECIFIED Qualifiers: Obesity type: due to excess calories Obesity classification: adult class 2 (BMI 35 - 39.9) Body mass index: BMI 36.0-36.9 (5) UTI (urinary tract infection) Code(s): N39.0 - URINARY TRACT INFECTION, SITE NOT SPECIFIED Qualifiers: Urinary tract infection type: acute cystitis Hematuria presence: without hematuria Qualified Code(s): N30.00 - Acute cystitis without hematuria Assessment/Plan Discussed with pt/ RN abx f/u cultures- URINE f/u labs cr better OFF ibeth for now Increase Amlodipine Looks benign growth - Hard palate- will consult ENT will follow off fluids daily oob - chair
[2019-10-14] MEDS ORDERED: POLYETHYLENE GLYCOL 3350 119 GM BTL PO PRN (11:59)
[2019-10-14] MEDS ORDERED: SENNOSIDES 8.6MG TABLET (FP) PO PRN (11:59)
[2019-10-14] MEDS ORDERED: WITCH HAZEL 50% (TUCKS) 40 PAD/JAR PAD TP SCH (12:15)
[2019-10-14] MEDS: traMADol HCL 50 MG TABLET PO PRN (21:25)
[2019-10-15] MEDS ORDERED: PT OWN MED DRAWER 7, Y5N ONE (04:44)
[2019-10-15] MEDS: SIMETHICONE 40 MG/0.6 ML BOTTLE PO PRN (05:00)
[2019-10-15] MEDS: amLODIPine BESYLATE 10 MG TABLET (FP) PO SCH ×2 (06:00→09:35)
[2019-10-15] MEDS: INSULIN SLIDING SCALE (NOVOLOG) 1 VIAL SQ SCH (06:03)
[2019-10-15] MEDS: traMADol HCL 50 MG TABLET PO PRN (06:05)
[2019-10-15] MEDS: HEPARIN NA (PORCINE) 5,000 UNITS/ML 1ML VIAL SQ SCH (06:08)
[2019-10-15 09:00] LABS: BASO % 1.1 % (0-2.0); EOS % 6.9 % (0-4.5); HEMOGLOBIN 9.5 GM/dL (10.7-15.3); LYMPH % 29.2 % (8-40); MCH 27.2 pg (25.7-33.7); MCHC 32.8 g/dl (32.0-36.0); MEAN CELL VOLUME 83.2 fl (80-96); MEAN PLT VOLUME 8.4 fl (7.5-11.1); MONO % 9.5 % (3.8-10.2); NEUT % 53.3 % (42.8-82.8); PLATELET COUNT 254 K/MM3 (134-434); RBC 3.49 M/mm3 (3.60-5.2); RDW 15.5 % (11.6-15.6); WHITE BLOOD COUNT 6.8 K/mm3 (4.0-10.0)
[2019-10-15] MEDS ORDERED: cefTRIAXone SODIUM 1 GM VIAL ONE (09:32)
[2019-10-15] MEDS ORDERED: DEXTROSE 5%-WATER - 50 ML IVPB ONE (09:32)
[2019-10-15] MEDS: CEFTRIAXONE 1 GM in DEXTROSE 5%-WATER - 50 ML IVPB SCH (09:35)
[2019-10-15] MEDS: PANTOPRAZOLE 40 MG TABLET PO SCH (09:35)
[2019-10-15] MEDS: cloNIDine HCL 0.1 MG TABLET PO SCH (09:35)
[2019-10-15] MEDS: BUDESONIDE/FORMETEROL FUMARATE 160/4.5 mcg INHALER IH SCH (09:37)
[2019-10-15 09:38] LABS: ALBUMIN 2.7 g/dl (3.4-5.0); BILIRUBIN,TOTAL 0.3 mg/dL (0.2-1); BLOOD UREA NITROGEN 20.4 mg/dL (7-18); CALCIUM 8.3 mg/dL (8.5-10.1); CREATININE 1.4 mg/dL (0.55-1.3); POTASSIUM 3.9 mmol/L (3.5-5.1); TOT PROT 6.7 g/dl (6.4-8.2)
[2019-10-15] MEDS: ALBUTEROL SO4 HFA INHALER IH SCH (09:38)
--- NOTE | 2019-10-15 11:10 | DS ---
Physical Examination Vital Signs: Vital Signs Temperature 97.8 F 10/15/19 05:03 Pulse Rate 100 H 10/15/19 05:03 Respiratory Rate 18 10/15/19 05:03 Blood Pressure 148/61 10/15/19 05:03 O2 Sat by Pulse Oximetry (%) 97 10/14/19 20:39 Findings/Remarks: pt seen/ examined feels better eating well no complains mild anxiety denies cp/sob/abd pain Constitutional: Yes: No Distress, Obese Eyes: Yes: Conjunctiva Clear Neck: Yes: Supple Cardiovascular: Yes: Regular Rate and Rhythm Respiratory: Yes: CTA Bilaterally Gastrointestinal: Yes: Soft, Abdomen, Obese Edema: No Neurological: Yes: Alert Psychiatric: Yes: Alert Labs: CBC, BMP 10/15/19 07:50 10/15/19 07:50 Discharge Summary Problems reviewed: Yes Reason For Visit: ACUTE KIDNEY INJURY, URINARY TRACT INFECTION Current Active Problems Acute renal failure (ARF) (Acute) GERD (gastroesophageal reflux disease) (Acute) SOB (shortness of breath) (Acute) Hospital Course: pt with extensive h/o admitted for uti/ arf treated with abx ibeth/ diuretics held mild hydration better u/a +++ for bacteria u/c -ve stable will d/c on po abx even culture -ve as pt was symptomatic and improved meds reconcilled d/c diuretics and arb for now Amlodipine added pt to follow with her pmd - advised in 2-3 day meds called as needed Condition: Stable - Instructions Referrals: Valente Connor MD [Primary Care Provider] - Disposition: HOME - Home Medications Comprehensive Discharge Medication List: Ambulatory Orders Alprazolam 0.25 mg PO TID 11/09/18 Budesonide/Formeterol Fumarate [SYMBICORT 160/4.5mcg -] 1 inh PO BID 11/09/18 Olmesartan Medoxomil [Benicar -] 40 mg PO DAILY 11/09/18 Polyethylene Glycol 3350 [Miralax 119 gm Btl -] 17 gm PO DAILY #1 bottle Sodium Chloride Nasal [place] [[place] Nasal [place] -] 2 spray NS Q8H PRN spray 11/13/18 Albuterol Sulfate [Proair Hfa] 8.5 gm IH DAILY 10/12/19 Clonidine HCl [Clonidine HCl ER] 0.1 mg PO BID 10/12/19 Fluticasone Propionate [Flonase Allergy Relief] 9.9 ml NS DAILY 10/12/19 Omeprazole 40 mg PO DAILY 10/12/19 Tramadol HCl 50 mg PO TID PRN MDD 150 10/12/19 Amlodipine Besylate [Norvasc -] 10 mg PO DAILY 30 Days #30 tablet 10/15/19 Nitrofurantoin Monohyd/M-Cryst [Macrobid -] 100 mg PO BID 3 Days #6 capsule Sennosides [Senna -] 2 tab PO HS PRN tablet 10/15/19
[2019-10-15 11:40] VITALS: BP 159/89; PULSE 83; TEMP 97.5
== END 2019-10-15 13:01 | disposition home or self-care (01) | DRG 683 ==
LOC: JER 20:55 → JERBED 10-13 00:12 → J6S 10-13 18:35
PROVIDERS: ADMIT Internal Medicine; ATTEND Internal Medicine
DX: N17.9 Acute kidney failure, unspecified (principal); N39.0 Urinary tract infection, site not specified; K21.9 Gastro-esophageal reflux disease without esophagitis; J44.9 Chronic obstructive pulmonary disease, unspecified; K57.90 Diverticulosis of intestine, part unspecified, without perforation or abscess without bleeding; J45.909 Unspecified asthma, uncomplicated; E66.9 Obesity, unspecified; Z68.36 Body mass index [BMI] 36.0-36.9, adult; R13.10 Dysphagia, unspecified; E88.09 Other disorders of plasma-protein metabolism, not elsewhere classified; D64.9 Anemia, unspecified
CPT/HCPCS: 36415; 71046-TC-FY; 76775-TC; 80053; 81003; 82550; 82962; 83735; 83880; 84100; 84484; 85025; 85610; 85730; 87086; 93005; 93010; 99285-25; J0735; J1644; J7030

== ENCOUNTER 2020-04-05 21:07 | Inpatient (IN) | payer OTHER ==
[2020-04-05] MEDS ORDERED: ACETAMINOPHEN 1000 MG/100 ML VIAL (NON FORMULARY) IVPB ONE (22:15)
[2020-04-05] MEDS ORDERED: ACETAMINOPHEN INJECTION 100 ML IVPB ONE (22:43)
[2020-04-05 23:07] LABS: BASO % 0.7 % (0-2.0); EOS % 2.5 % (0-4.5); HEMATOCRIT 34.7 % (32.4-45.2); HEMOGLOBIN 11.2 GM/dL (10.7-15.3); LYMPH % 30.9 % (8-40); MCHC 32.3 g/dl (32.0-36.0); MEAN CELL VOLUME 83.7 fl (80-96); MEAN PLT VOLUME 8.2 fl (7.5-11.1); MONO % 7.1 % (3.8-10.2); NEUT % 58.8 % (42.8-82.8); PLATELET COUNT 318 K/MM3 (134-434); RBC 4.14 M/mm3 (3.60-5.2); RDW 17.5 % (11.6-15.6); WHITE BLOOD COUNT 11.8 K/mm3 (4.0-10.0)
[2020-04-05 23:37] LABS: ALBUMIN 3.5 g/dl (3.4-5.0); ALK PHOS 74 U/L (45-117); ANION GAP 7 MMOL/L (8-16); BILIRUBIN,TOTAL 0.5 mg/dL (0.2-1); BLOOD UREA NITROGEN 31.7 mg/dL (7-18); CALCIUM 9.1 mg/dL (8.5-10.1); CHLORIDE 97 mmol/L (98-107); CO2 29 mmol/L (21-32); CREATININE 1.2 mg/dL (0.55-1.3); GLUCOSE,RANDOM 88 mg/dL (74-106); POTASSIUM 4.4 mmol/L (3.5-5.1); SGOT/AST 22 U/L (15-37); SGPT/ALT 16 U/L (13-61); SODIUM 132 mmol/L (136-145); TOT PROT 8.1 g/dl (6.4-8.2)
[2020-04-05] MEDS ORDERED: NITROGLYCERIN 2% OINTMENT - 1GM PACKET TD ONE (23:44)
--- NOTE | 2020-04-05 23:44 | PDOC ---
Documentation entered by Ellyn Cortes SCRIBE, acting as scribe for Bal Seay MD. Bal Seay MD: This documentation has been prepared by the Sbeastian ly Xhesika, SCRIBE, under my direction and personally reviewed by me in its entirety. I confirm that the documentation accurately reflects all work, treatment, procedures, and medical decision making performed by me. History of Present Illness - General Chief Complaint: Chest Pain Stated Complaint: CHEST PAIN HEADACHES Time Seen by Provider: 04/05/20 21:53 History Source: Patient Exam Limitations: No Limitations - History of Present Illness Initial Comments: 04/05/20 22:03 The patient is a 74 year old female with a significant PMH of HTN (compliant with meds), GERD, anxiety, HLD, angina, asthma who presents to the emergency department for frontal headache, lightheadedness and chest pressure x1day. Pt states her chest pressure is a 8/10 in severity, constant, associated with L finger numbness and urinary frequency. Pt states since her symptoms have been constant since yesterday, the checked her BP and it was 180/90, prompting her to call EMS. Pt states en-route to the ED, pt received 4 baby aspirins. Pt denies experiencing these symptoms before. The patient denies shortness of breath, and dizziness. Denies fever, chills, cough, nausea, vomiting, diarrhea and constipation. Denies dysuria, urgency and hematuria. Allergies: NKDA PCP:Dr. Connor Past History - Medical History Allergies/Adverse Reactions: Allergies Allergy/AdvReac Type Severity Reaction Status Date / Time PRINCESS Inhibitors Allergy Severe TONGUE Verified 12/10/19 15:35 SWELLING, RASH Home Medications: Ambulatory Orders Albuterol Sulfate [Proair Hfa] 8.5 gm IH PRN PRN 12/10/19 Amlodipine Besylate [Norvasc -] 10 mg PO DAILY 12/10/19 Amoxicillin - [Amoxicillin 500mg Capsule -] 500 mg PO TID 12/10/19 Budesonide/Formeterol Fumarate [SYMBICORT 160/4.5mcg -] 1 inh PO BID 12/10/19 Clonidine HCl 0.2 mg PO BID 12/10/19 Hydroxyzine HCl 25 mg PO TID 12/10/19 Linaclotide [Linzess] 290 mcg PO DAILY 12/10/19 Mupirocin Ointment [Bactroban 2% Ointment -] 1 applic TP BID 12/10/19 Naproxen [Naprosyn -] 500 mg PO BID 12/10/19 Omeprazole 40 mg PO DAILY 12/10/19 Sodium Chloride Nasal [place] [[place] Nasal [place]] 2 spray NS BID 12/10/19 Sodium Chloride/Aloe Vera [Saline Nasal Gel] 14.1 gm TP BID 12/10/19 Tramadol HCl 50 mg PO TID 12/10/19 Valsartan 320 mg PO DAILY 12/10/19 Clonidine HCl 0.5 mg PO TID PRN 12/18/19 Paroxetine HCl 10 mg PO DAILY 12/18/19 Oxycodone HCl/Acetaminophen [Percocet 5-325 mg Tablet] 1 tab PO Q6H PRN #30 tab MDD 4 01/29/20 Amino Acids/Protein Hydrolys [Prosource No Carb Liquid Pkt] 30 ml PO BID@0800,1730 packet 02/04/20 Diphenhydramine HCl [Benadryl Capsule -] 25 mg PO Q8H PRN capsule 02/04/20 Enoxaparin [Lovenox -] 40 mg SQ DAILY disp.syrin 02/04/20 Nystatin Powder [Nystop Powder -] 1 applic TP BID applic 02/04/20 Polyethylene Glycol 3350 [Miralax 119 gm Btl -] 17 gm PO DAILY bottle 02/04/20 Simethicone [Mylicon -] 80 mg PO Q4H PRN tab.chew 02/04/20 oxyCODONE HCL [Roxicodone -] 10 mg PO Q4H PRN tablet 02/04/20 Anemia: No Asthma: Yes Cancer: No Cardiac Disorders: Yes (ANGINA) CVA: No COPD: Yes (asthma, copd) CHF: No Dementia: No Diabetes: No GI Disorders: Yes (gerd, rectal bleeding) Disorders: Yes (FREQUENT UTI'S) HTN: Yes Hypercholesterolemia: Yes Liver Disease: No Psychiatric Problems: Yes Seizures: No Thyroid Disease: No - Surgical History Abdominal Surgery: Yes Appendectomy: Yes (AT AGE 2) Cardiac Surgery: No Cholecystectomy: Yes (OPEN-) Lung Surgery: No Neurologic Surgery: No Orthopedic Surgery: Yes (LEFT ROTATOR CUFF-2013) - Immunization History Immunization Up to Date: Yes - Psycho-Social/Smoking History Smoking History: Never smoked Have you smoked in the past 12 months: No Number of Cigarettes Smoked Daily: 0 If you are a former smoker, when did you quit?: about 27 yrs ago 'Breaking Loose' booklet given: 09/12/13 - Substance Abuse Hx (Audit-C & DAST Scrn) How often the patient has a drink containing alcohol: Never Score: In Men: 4 or > Positive; In Women: 3 or > Positive: 0 Screen Result (Pos requires Nsg. Audit-10AR): Negative Review of Systems - Review of Systems Able to Perform ROS?: Yes Comments:: 04/05/20 22:17 CONSTITUTIONAL: No fever, no chills, no fatigue EYES: No visual changes ENT: No ear pain, no sore throat CARDIOVASCULAR:+chest pressure. no palpitations RESPIRATORY: No cough, no SOB GI: No abdominal pain, no nausea, no vomiting, no constipation, no diarrhea. +urinary frequency GENITOURINARY: No dysuria, no frequency, no hematuria MUSKULOSKELETAL: No back pain, no joint pain, no myalgias SKIN: No rash NEURO: +frontal headache. +lightheadedness. +L finger numbness. *Physical Exam - Vital Signs Last Vital Signs Temp Pulse Resp BP Pulse Ox 97.9 F 72 20 175/67 H 99 04/05/20 21:27 04/05/20 21:27 04/05/20 21:27 04/05/20 21:27 04/05/20 21:27 - Physical Exam 04/05/20 23:39 EXAMINATION CONSTITUTIONAL: Awake, alert; obese; in no apparent distress HEAD: Normocephalic; atraumatic EYES: PERRL; EOM intact ENMT: External appears normal; + poor dentition; NECK: Supple; non-tender; no jvd CARD: Normal S1, S2; 2/6 holosystolic murmurs, no rubs, or gallops RESP: Normal chest excursion with respiration; breath sounds clear and equal bilaterally; no wheezes, rhonchi, or rales ABD: Soft, non-distended; non-tender; no palpable organomegaly, no palpable hernias EXT: Normal ROM in all four extremities; + piting edema b/l; non-tender to palpation; distal pulses intact SKIN: Warm, dry, no rash NEURO: cn i-xii groslly intact, motor: 5/5x4; no pronatoin drift. gait- deffered. Heart Score/ECG Review - History History: Slightly suspicious - Electrocardiogram EKG: Non specific repolarization disturbance - Age Age: >/= 65 - Risk Factors Risk Factors Heart Score: Yes Hx Hypertension, Yes Hx Obesity Based on the list above the patient has:: 1-2 risk factors - Troponin Troponin: </= normal limit - Score Heart Score - Total: 4 ED Treatment Course - LABORATORY CBC & Chemistry Diagram: 04/05/20 23:00 04/05/20 23:00 Medical Decision Making - Medical Decision Making 04/05/20 23:42 . 74-year-old female with history of hypertension, history of partial colectomy due to perforated diverticulitis and intra-abdominal abscess, obesity presents to the ER with atraumatic substernal chest pressure for the past 24 to 36 hours, with the left arm paresthesias and headache. Patient is noted to be hypertensive on initial evaluation. EKG shows normal sinus at 72, LVH with repull abnormality and Q waves in V1 and V2 which appear different from the unde rlying left bundle branch block on a previously obtained EKG from January 262019. Patient's heart score is noted to be 4. Patient received 325 of aspirin by EMS prior to arrival. Will administer an inch of transdermal nitroglycerin. Will place on obs/ telemetry for serial cardiac enzymes. 04/06/20 00:22 Patient's first set of cardiac enzymes is within normal limit. Will place on telemetry for serial enzymes. I do not suspect a PE at this time. Discharge - Discharge Information Problems reviewed: Yes Clinical Impression/Diagnosis: Chest pain Qualifiers: Chest pain type: unspecified Qualified Code(s): R07.9 - Chest pain, unspecified Condition: Fair - Admission Yes - Follow up/Referral Referrals: Valente Connor MD [Primary Care Provider] - - Patient Discharge Instructions - Post Discharge Activity
[2020-04-05 23:49] LABS: ANISOCYTOSIS 1+; MACROCYTOSIS 0; PLATELET ESTIMATE NORMAL
--- NOTE | 2020-04-06 00:20 | HP ---
Admitting History and Physical - Primary Care Physician PCP: Valente Connor - Admission Chief Complaint: Chest Pressure History of Present Illness: This is a 74 y/o female with a significant PMHx of HTN (compliant with meds), HLD, Angina, Asthma, GERD, Anxiety. Who presents to the ED for frontal headache, lightheadedness and chest pressure x1 day. Patient reports having constant left chest pressure with left finger numbness. She also reports urinary frequency. Patient reports having an elevated BP at home- 180/90, prompting her to call EMS. Patient was given baby Asa x4 by EMS prior to arrival. Patient denies experiencing these symptoms before. Patient denies SOB and dizziness. Patient denies fever, chills, cough, nausea, vomiting, diarrhea, constipation, dysuria, urgency,and hematuria. Patient denies sick contacts or recent travel. History Source: Patient Limitations to Obtaining History: No Limitations - Past Medical History Cardiovascular: Yes: HTN, Other (new LBBB) Pulmonary: Yes: Asthma Gastrointestinal: Yes: Constipation, Diverticulitis (04/08 with some air in uterus/?possible colouterine fistula), Diverticulosis, Other (morbid obesity) Hepatobiliary: Yes: Cholelithiasis (s/p GB surgery) Musculoskeletal: Yes: Osteoarthritis Rheumatology: Yes: Other (osteoarthritis) - Past Surgical History Past Surgical History: Yes: Appendectomy (??? pt not sure, possible RLQ scar), Cataract Removal, Cholecystectomy, Colostomy, Joint Replacement (left knee). No: Colonoscopy - Smoking History Smoking history: Former smoker Have you smoked in the past 12 months: No Aproximately how many cigarettes per day: 0 If you are a former smoker, when did you quit?: about 27 yrs ago - Alcohol/Substance Use Hx Alcohol Use: No History of Substance Use: reports: None - Social History Usual Living Arrangement: Yes: With Spouse ADL: Independent (ambulates with walker) Occupation: retired home health aide History of Recent Travel: No Home Medications - Allergies Allergies/Adverse Reactions: Allergies Allergy/AdvReac Type Severity Reaction Status Date / Time PRINCESS Inhibitors Allergy Severe TONGUE Verified 12/10/19 15:35 SWELLING, RASH - Home Medications Home Medications: Ambulatory Orders Albuterol Sulfate [Proair Hfa] 8.5 gm IH PRN PRN 12/10/19 Amlodipine Besylate [Norvasc -] 10 mg PO DAILY 12/10/19 Amoxicillin - [Amoxicillin 500mg Capsule -] 500 mg PO TID 12/10/19 Budesonide/Formeterol Fumarate [SYMBICORT 160/4.5mcg -] 1 inh PO BID 12/10/19 Clonidine HCl 0.2 mg PO BID 12/10/19 Hydroxyzine HCl 25 mg PO TID 12/10/19 Linaclotide [Linzess] 290 mcg PO DAILY 12/10/19 Mupirocin Ointment [Bactroban 2% Ointment -] 1 applic TP BID 12/10/19 Naproxen [Naprosyn -] 500 mg PO BID 12/10/19 Omeprazole 40 mg PO DAILY 12/10/19 Sodium Chloride Nasal [place] [[place] Nasal [place]] 2 spray NS BID 12/10/19 Sodium Chloride/Aloe Vera [Saline Nasal Gel] 14.1 gm TP BID 12/10/19 Tramadol HCl 50 mg PO TID 12/10/19 Valsartan 320 mg PO DAILY 12/10/19 Clonidine HCl 0.5 mg PO TID PRN 12/18/19 Paroxetine HCl 10 mg PO DAILY 12/18/19 Oxycodone HCl/Acetaminophen [Percocet 5-325 mg Tablet] 1 tab PO Q6H PRN #30 tab MDD 4 01/29/20 Amino Acids/Protein Hydrolys [Prosource No Carb Liquid Pkt] 30 ml PO BID@0800,1730 packet 02/04/20 Diphenhydramine HCl [Benadryl Capsule -] 25 mg PO Q8H PRN capsule 02/04/20 Enoxaparin [Lovenox -] 40 mg SQ DAILY disp.syrin 02/04/20 Nystatin Powder [Nystop Powder -] 1 applic TP BID applic 02/04/20 Polyethylene Glycol 3350 [Miralax 119 gm Btl -] 17 gm PO DAILY bottle 02/04/20 Simethicone [Mylicon -] 80 mg PO Q4H PRN tab.chew 02/04/20 oxyCODONE HCL [Roxicodone -] 10 mg PO Q4H PRN tablet 02/04/20 Family Medical History Family History: Unable to Obtain Review of Systems - Review of Systems Constitutional: reports: Loss of Appetite Eyes: reports: No Symptoms HENT: reports: No Symptoms Neck: reports: No Symptoms Cardiovascular: reports: Chest Pain Respiratory: reports: No Symptoms Gastrointestinal: reports: No Symptoms Genitourinary: reports: Frequency Breasts: reports: No Symptoms Reported Musculoskeletal: reports: No Symptoms Integumentary: reports: No Symptoms Neurological: reports: Headache, Numbness Endocrine: reports: No Symptoms Hematology/Lymphatic: reports: No Symptoms Psychiatric: reports: No Symptoms Pain Intensity: 4 Physical Examination Vital Signs: Vital Signs Temperature 97.9 F 04/05/20 21:27 Pulse Rate 72 04/05/20 21:27 Respiratory Rate 20 04/05/20 21:27 Blood Pressure 175/67 H 04/05/20 21:27 O2 Sat by Pulse Oximetry (%) 99 04/05/20 21:27 Constitutional: Yes: No Distress, Calm Eyes: Yes: Conjunctiva Clear, EOM Intact, PERRL HENT: Yes: Atraumatic, Normocephalic, Other (dry mucous membranes) Neck: Yes: Supple, Trachea Midline Cardiovascular: Yes: Regular Rate and Rhythm, S1, S2 Respiratory: Yes: Regular, CTA Bilaterally Gastrointestinal: Yes: Normal Bowel Sounds, Soft, Other (colostomy- stoma intact) ...Rectal Exam: Yes: Deferred Renal/: No: CVA Tenderness - Left, CVA Tenderness - Right Breast(s): Yes: WNL Musculoskeletal: Yes: WNL Extremities: Yes: WNL Edema: No Peripheral Pulses WNL: Yes Neurological: Yes: WNL, Alert, Oriented, Cran Nerves II-XII Intact ...Motor Strength: WNL Psychiatric: Yes: WNL, Alert, Oriented Labs: CBC, BMP 04/05/20 23:00 04/05/20 23:00 Laboratory Results - last 24 hr 04/05/20 04/05/20 23:00 23:00 WBC 11.8 H RBC 4.14 Hgb 11.2 Hct 34.7 D MCV 83.7 MCH 27.0 MCHC 32.3 RDW 17.5 H Plt Count 318 MPV 8.2 Absolute Neuts (auto) 6.9 Neutrophils % 58.8 Neutrophils % (Manual) 61.8 Band Neutrophils % 0.0 Lymphocytes % 30.9 Lymphocytes % (Manual) 23.5 Monocytes % 7.1 Monocytes % (Manual) 8 Eosinophils % 2.5 Eosinophils % (Manual) 2.0 Basophils % 0.7 Basophils % (Manual) 0.0 Myelocytes % (Man) 0 Promyelocytes % (Man) 0 Blast Cells % (Manual) 0 Nucleated RBC % 0 Metamyelocytes 0 Hypochromia 0 Platelet Estimate Normal Platelet Comment Present Polychromasia 0 Poikilocytosis 0 Anisocytosis 1+ Microcytosis 1+ Macrocytosis 0 Sodium 132 L Potassium 4.4 Chloride 97 L Carbon Dioxide 29 Anion Gap 7 L BUN 31.7 H Creatinine 1.2 Est GFR (CKD-EPI)AfAm 50.84 Est GFR (CKD-EPI)NonAf 43.86 Random Glucose 88 Calcium 9.1 Total Bilirubin 0.5 AST 22 ALT 16 Alkaline Phosphatase 74 Creatine Kinase 46 Troponin I < 0.02 Total Protein 8.1 Albumin 3.5 Imaging - Results Chest X-ray: Image Reviewed Cat Scan: Report Reviewed, Image Reviewed EKG: Image Reviewed Problem List - Problems (1) Chest pain Assessment/Plan: r/o ACS HEART Score 4 Continue cardiac monitoring Serial Enzymes Appreciate Cardiology consult Chest Xray reviewed EKG reviewed Asa Code(s): R07.9 - CHEST PAIN, UNSPECIFIED Qualifiers: Chest pain type: unspecified Qualified Code(s): R07.9 - Chest pain, unspecified (2) CHF (congestive heart failure) Assessment/Plan: stable Chest Xray image reviewed Continue home meds Patient appears euvolemic Daily weight Strict INOs Monitor vitals Code(s): I50.9 - HEART FAILURE, UNSPECIFIED (3) COPD (chronic obstructive pulmonary disease) Assessment/Plan: stable No acute flare Chest Xray image reviewed Continue home meds O2 Code(s): J44.9 - CHRONIC OBSTRUCTIVE PULMONARY DISEASE, UNSPECIFIED (4) GERD (gastroesophageal reflux disease) Assessment/Plan: stable Continue PPI Code(s): K21.9 - GASTRO-ESOPHAGEAL REFLUX DISEASE WITHOUT ESOPHAGITIS (5) HTN (hypertension) Assessment/Plan: suboptimal Monitor BP Continue home meds Monitor renal function Code(s): I10 - ESSENTIAL (PRIMARY) HYPERTENSION Qualifiers: Hypertension type: essential hypertension Qualified Code(s): I10 - Essential (primary) hypertension (6) 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 Placed in Telemetry Observation for Chest Pain r/o ACS for further evaluation of their emergent condition Plan: See Problem List FEN PO fluids as tolerated Replete lytes prn Low Na Diet DVT ppx OOB SCDs Consider AC if LOS > 48 hrs Dispo: Observation Visit type - Medication Review Med list reviewed for High Risk Meds patients 65 and older: Yes - Emergency Visit Emergency Visit: Yes ED Registration Date: 04/05/20 Care time: The patient presented to the Emergency Department on the above date and was hospitalized for further evaluation of their emergent condition. - New Patient This patient is new to me today: Yes Date on this admission: 04/06/20 - Critical Care Critical Care patient: No
[2020-04-06] MEDS ORDERED: NITROGLYCERIN 2% OINTMENT - 1GM PACKET TD ONE (00:49)
[2020-04-06] MEDS ORDERED: ALBUTEROL SO4 HFA INHALER IH PRN (05:25)
[2020-04-06] MEDS ORDERED: PANTOPRAZOLE 40 MG TABLET ONE (06:24)
[2020-04-06] MEDS: PANTOPRAZOLE 40 MG TABLET PO SCH ×2 (06:27→06:32)
[2020-04-06 06:43] LABS: EPI CELLS 5 /uL (0-25.1); HYALINE CASTS 1 /uL (0-3.1); URINE APPEARANCE CLOUDY; URINE BACTERIA 1329 /uL (0-1359); URINE BILIRUBIN NEGATIVE (NEGATIVE); URINE COLOR YELLOW; URINE GLUCOSE (UA) NEGATIVE (NEGATIVE); URINE KETONE NEGATIVE (NEGATIVE); URINE LEUK ESTERASE 3+ (NEGATIVE); URINE NITRITE NEGATIVE (NEGATIVE); URINE PROTEIN NEGATIVE (NEGATIVE); URINE RBC 19 /uL (0-23.9); URINE UROBILINOGEN 0.2 mg/dL (0.2-1.0); URINE WBC 2103 /uL (0-25.8)
[2020-04-06 07:07] LABS: BASO % 0.7 % (0-2.0); EOS % 4.2 % (0-4.5); HEMOGLOBIN 11.5 GM/dL (10.7-15.3); LYMPH % 36.4 % (8-40); MCH 27.2 pg (25.7-33.7); MCHC 32.9 g/dl (32.0-36.0); MEAN CELL VOLUME 82.6 fl (80-96); MEAN PLT VOLUME 8.3 fl (7.5-11.1); MONO % 6.5 % (3.8-10.2); NEUT % 52.2 % (42.8-82.8); PLATELET COUNT 317 K/MM3 (134-434); RBC 4.23 M/mm3 (3.60-5.2); RDW 17.1 % (11.6-15.6); WHITE BLOOD COUNT 11.1 K/mm3 (4.0-10.0)
[2020-04-06 07:19] LABS: CHOLESTEROL 174 mg/dL (50-200); HDL CHOLESTEROL 60 mg/dL (40-60); TRIGLYCERIDES 103 mg/dL (0-150)
[2020-04-06 07:26] LABS: ALBUMIN 3.6 g/dl (3.4-5.0); ALK PHOS 70 U/L (45-117); ANION GAP 11 MMOL/L (8-16); BLOOD UREA NITROGEN 31.4 mg/dL (7-18); CALCIUM 8.9 mg/dL (8.5-10.1); CHLORIDE 100 mmol/L (98-107); CO2 24 mmol/L (21-32); CREATININE 1.3 mg/dL (0.55-1.3); GLUCOSE,RANDOM 95 mg/dL (74-106); MAGNESIUM 2.1 mg/dL (1.8-2.4); POTASSIUM 3.9 mmol/L (3.5-5.1); SGOT/AST 14 U/L (15-37); SGPT/ALT 17 U/L (13-61); SODIUM 135 mmol/L (136-145); TOT PROT 7.9 g/dl (6.4-8.2)
[2020-04-06 07:32] LABS: LDL CHOLESTEROL (ONLY SJRH) 94 mg/dL (5-100)
[2020-04-06 07:33] LABS: BILIRUBIN,TOTAL 0.7 mg/dL (0.2-1)
--- NOTE | 2020-04-06 08:17 | CON.CARD ---
Consult Consult Specialty:: cardio - History of Present Illness Chief Complaint: cp History of Present Illness: 74 yo F here with CRUZ and cp. denies CRUZ, describes mild lightheadedness which is typical of her sx's when BP is elevated. also chest heaviness with assctd numbness in fingers of L hand--NEVER HAD THIS SX BEFORE INCLUDING WHEN BP HIGH. Patient reports having an elevated BP at home- 180/90, prompting her to call EMS chest discomfort persisted many hours yest, resolved in ER. same for numbness. denies both sx's at present no sob at any time no palpitations BP 175 in ER-->improved to 140s-150s all above sx's currently resolved legs swollen, feels USOH to her no new sob PMH: HTN COPD venous ins - Past Medical History Cardio/Vascular: Yes: HTN, Other (new LBBB) Pulmonary: Yes: Asthma Gastrointestinal: Yes: Constipation, Diverticulitis (04/08 with some air in uterus/?possible colouterine fistula), Diverticulosis, Other (morbid obesity) Hepatobiliary: Yes: Cholelithiasis (s/p GB surgery) Musculoskeletal: Yes: Osteoarthritis Rheumatology: Yes: Other (osteoarthritis) - Past Surgical History Past Surgical History: Yes: Appendectomy (??? pt not sure, possible RLQ scar), Cataract Removal, Cholecystectomy, Colostomy, Joint Replacement (left knee). No: Colonoscopy - Alcohol/Substance Use Hx Alcohol Use: No History of Substance Use: reports: None - Smoking History Smoking history: Former smoker Have you smoked in the past 12 months: No Aproximately how many cigarettes per day: 0 If you are a former smoker, when did you quit?: about 27 yrs ago - Social History Usual Living Arrangement: With Spouse ADL: Independent (ambulates with walker) Occupation: retired home health aide History of Recent Travel: No Home Medications - Allergies Allergies/Adverse Reactions: Allergies Allergy/AdvReac Type Severity Reaction Status Date / Time PRINCESS Inhibitors Allergy Severe TONGUE Verified 12/10/19 15:35 SWELLING, RASH - Home Medications Home Medications: Ambulatory Orders Albuterol Sulfate [Proair Hfa] 8.5 gm IH PRN PRN 12/10/19 Amlodipine Besylate [Norvasc -] 10 mg PO DAILY 12/10/19 Amoxicillin - [Amoxicillin 500mg Capsule -] 500 mg PO TID 12/10/19 Budesonide/Formeterol Fumarate [SYMBICORT 160/4.5mcg -] 1 inh PO BID 12/10/19 Clonidine HCl 0.2 mg PO BID 12/10/19 Hydroxyzine HCl 25 mg PO TID 12/10/19 Linaclotide [Linzess] 290 mcg PO DAILY 12/10/19 Mupirocin Ointment [Bactroban 2% Ointment -] 1 applic TP BID 12/10/19 Naproxen [Naprosyn -] 500 mg PO BID 12/10/19 Omeprazole 40 mg PO DAILY 12/10/19 Sodium Chloride Nasal [place] [[place] Nasal [place]] 2 spray NS BID 12/10/19 Sodium Chloride/Aloe Vera [Saline Nasal Gel] 14.1 gm TP BID 12/10/19 Tramadol HCl 50 mg PO TID 12/10/19 Valsartan 320 mg PO DAILY 12/10/19 Clonidine HCl 0.5 mg PO TID PRN 12/18/19 Paroxetine HCl 10 mg PO DAILY 12/18/19 Oxycodone HCl/Acetaminophen [Percocet 5-325 mg Tablet] 1 tab PO Q6H PRN #30 tab MDD 4 01/29/20 Amino Acids/Protein Hydrolys [Prosource No Carb Liquid Pkt] 30 ml PO BID@0800,1730 packet 02/04/20 Diphenhydramine HCl [Benadryl Capsule -] 25 mg PO Q8H PRN capsule 02/04/20 Enoxaparin [Lovenox -] 40 mg SQ DAILY disp.syrin 02/04/20 Nystatin Powder [Nystop Powder -] 1 applic TP BID applic 02/04/20 Polyethylene Glycol 3350 [Miralax 119 gm Btl -] 17 gm PO DAILY bottle 02/04/20 Simethicone [Mylicon -] 80 mg PO Q4H PRN tab.chew 02/04/20 oxyCODONE HCL [Roxicodone -] 10 mg PO Q4H PRN tablet 02/04/20 Family Medical History Family Hx Coronary Artery Disease: Father (CHF) Family Hx Diabetes: Grandmother (maternal), Mother Family Hx Respiratory Disorders: Sister (Emphysema) Review of Systems - Review of Systems Constitutional: denies: Chills, Fever Eyes: denies: Eye Pain HENT: denies: Nasal Congestion Neck: denies: Stiffness Cardiovascular: denies: Palpitations Respiratory: denies: Orthopnea, PND Gastrointestinal: denies: Diarrhea, Rectal Bleeding Genitourinary: denies: Burning, Hematuria Musculoskeletal: denies: Muscle Pain Integumentary: denies: Rash Neurological: denies: Seizure, Syncope Endocrine: denies: Excessive Sweating Hematology/Lymphatic: denies: Excessive Bleeding Vital Signs: Vital Signs Temperature 97.7 F 04/06/20 05:10 Pulse Rate 66 04/06/20 06:26 Respiratory Rate 18 04/06/20 06:26 Blood Pressure 144/72 04/06/20 06:26 O2 Sat by Pulse Oximetry (%) 96 04/06/20 06:26 Constitutional: Yes: Well Nourished, No Distress, Obese Eyes: No: Sclera Icterus HENT: No: Nasal Congestion Neck: No: Decreased ROM Respiratory: Yes: CTA Bilaterally. No: Accessory Muscle Use Gastrointestinal: Yes: Normal Bowel Sounds. No: Distention, Hepatomegaly, Palpable Mass, Tenderness Cardiovascular: Yes: Regular Rate and Rhythm JVD: No Carotid Bruit: No PMI: Non-Displaced Heart Sounds: Yes: S1, S2. No: Gallop Murmur: No: Systolic Murmur, Diastolic Murmur Musculoskeletal: Yes: Other (No kyphosis) Extremities: No: Cool, Cyanosis Edema: Yes (mild-mod nonpit ankles) Peripheral Pulses: 2+ Left Carotid, 2+ Right Carotid, 2+ Left Doralis Pedis, 2+ Right Dorsalis Pedis Integumentary: No: Jaundice Neurological: Yes: Alert, Oriented (x3) Psychiatric: No: Agitated - Other Data Labs, Other Data: CBC, BMP 04/06/20 06:24 04/06/20 06:24 Troponin, BNP 04/05/20 04/06/20 23:00 06:24 Troponin I < 0.02 < 0.02 Troponin, BNP 04/05/20 04/06/20 23:00 06:24 Troponin I < 0.02 < 0.02 Assessment/Plan Echo 02/2019 tds, nl LV function, tr MR, tr TR CXR: clear lungs/pleura ECG: NSR, LVH with repol abnormality, q waves V1/2 (prior ECGs had LBBB) CRUZ, lightheadedness: -? hi bp sx at home -observe sx's with better bp control here -CT head pending -f/u Covid PCR -plan otherwise per hospitalist chest pain: -trop neg x 2 -ECG nonsp ST-Ts in LVH pattern -BP poorly controlled at o.v. 2019 sec to non-adherence. -rec MPI tomorrow, echo mild hyponatremia: -improving -monitor labs, pt on thiazide htn: -cont home meds for now venous insuff/le edema: COPD - manage per primary
[2020-04-06] MEDS ORDERED: ASPIRIN 81 MG CHEWABLE TABLETS ONE (09:55)
[2020-04-06] MEDS ORDERED: FUROSEMIDE 40 MG TABLET (FP) ONE (09:55)
[2020-04-06] MEDS ORDERED: PARoxetine HCL 10 MG TABLET ONE (09:55)
[2020-04-06] MEDS ORDERED: FERROUS SO4 325 MG TABLET (FP) ONE (09:55)
[2020-04-06] MEDS: ASPIRIN 81 MG CHEWABLE TABLETS PO SCH (09:58)
[2020-04-06] MEDS: BUDESONIDE/FORMETEROL FUMARATE 160/4.5 mcg INHALER IH SCH ×2 (09:59→22:45)
[2020-04-06] MEDS: PARoxetine HCL 10 MG TABLET PO SCH (09:59)
[2020-04-06] MEDS: FERROUS SO4 325 MG TABLET (FP) PO SCH (09:59)
[2020-04-06] MEDS: FUROSEMIDE 40 MG TABLET (FP) PO SCH (09:59)
[2020-04-06] MEDS: SODIUM CHLORIDE NASAL SPRAY 44 ML BOTTLE NS SCH ×2 (09:59→21:46)
[2020-04-06] MEDS: VALSARTAN 160 MG TABLET (UD) PO SCH (09:59)
[2020-04-06] MEDS ORDERED: PATIENT'S OWN MEDICATION (NON-FORMULARY) (Valsartan [Valsartan] 320 MG) PO SCH (10:00)
[2020-04-06] MEDS: CHOLECALCIFEROL (VIT D3) 1,000 UNIT (25 MCG) TABLET PO SCH (10:00)
[2020-04-06] MEDS ORDERED: PATIENT'S OWN MEDICATION (NON-FORMULARY) (Omeprazole [Omeprazole] 40 MG) PO SCH (10:00)
--- NOTE | 2020-04-06 13:13 | PN ---
Progress Note, Physician History of Present Illness: patient seen and examined in the emergency room chart is reviewed awake and comfortable No distress Denies chest pain wants to go home SD ruled out Stress test has been ordered for tomorrow----After discussion willing to stay for stress test - Current Medication List Current Medications: Active Medications Albuterol Sulfate (Ventolin Hfa Inhaler -) 2 puff IH Q4H PRN PRN Reason: SHORT OF BREATH/WHEEZING Aspirin (Asa -) 81 mg PO DAILY [facility] Last Admin: 04/06/20 09:58 Dose: 81 mg Documented by: Budesonide/Formoterol Fumarate (Symbicort 160/4.5mcg -) 1 puff IH BID [facility] Last Admin: 04/06/20 09:59 Dose: Not Given Documented by: Cholecalciferol (Vitamin D3 -) 1,000 unit PO DAILY [facility] Last Admin: 04/06/20 10:00 Dose: 1,000 unit Documented by: Ferrous Sulfate (Feosol -) 325 mg PO DAILY [facility] Last Admin: 04/06/20 09:59 Dose: Not Given Documented by: Furosemide (Lasix -) 40 mg PO DAILY [facility] Last Admin: 04/06/20 09:59 Dose: Not Given Documented by: Pantoprazole Sodium (Protonix -) 40 mg PO ACBK [facility] Last Admin: 04/06/20 06:32 Dose: Not Given Documented by: Paroxetine HCl (Paxil -) 20 mg PO DAILY [facility] Last Admin: 04/06/20 09:59 Dose: 20 mg Documented by: Pramipexole Dihydrochloride (Mirapex -) 0.5 mg PO HS [facility] Sodium Chloride ([place] Nasal [place] -) 2 spray NS BID [facility] Last Admin: 04/06/20 09:59 Dose: Not Given Documented by: Tramadol HCl (Ultram -) 50 mg PO TID PRN PRN Reason: PAIN LEVEL 7 - 10 Valsartan (Diovan -) 320 mg PO DAILY [facility] Last Admin: 04/06/20 09:59 Dose: 320 mg Documented by: - Objective Vital Signs: Vital Signs Temperature 98.2 F 04/06/20 09:20 Pulse Rate 84 04/06/20 09:20 Respiratory Rate 18 04/06/20 09:20 Blood Pressure 140/78 04/06/20 09:20 O2 Sat by Pulse Oximetry (%) 99 04/06/20 09:20 Constitutional: Yes: No Distress, Anxious Neck: Yes: Supple Cardiovascular: Yes: Regular Rate and Rhythm Respiratory: Yes: CTA Bilaterally Gastrointestinal: Yes: Soft, Other (colostomy bag in place) Edema: No Neurological: Yes: Alert Psychiatric: Yes: Alert Labs: CBC, BMP 04/06/20 06:24 04/06/20 06:24 - ....Imaging Chest X-ray: Report Reviewed Problem List - Problems (1) Chest pain Code(s): R07.9 - CHEST PAIN, UNSPECIFIED Qualifiers: Chest pain type: unspecified Qualified Code(s): R07.9 - Chest pain, unspecified (2) Colostomy in place Code(s): Z93.3 - COLOSTOMY STATUS (3) Encounter for screening laboratory testing for COVID-19 virus Code(s): Z11.59 - ENCOUNTER FOR SCREENING FOR OTHER VIRAL DISEASES Assessment/Plan clinically stable monitor on telemetry tonight Stress test tomorrow If stable will consider discharge after stress test Discussed with nursing staff also
[2020-04-06] MEDS ORDERED: traMADol HCL 50 MG TABLET ONE (17:31)
[2020-04-06] MEDS: traMADol HCL 50 MG TABLET PO PRN (17:48)
--- NOTE | 2020-04-06 18:09 | EKG ---
Test Reason : Blood Pressure : / mmHG Vent. Rate : 072 BPM Atrial Rate : 072 BPM P-R Int : 202 ms QRS Dur : 092 ms QT Int : 408 ms P-R-T Axes : 046 -01 128 degrees QTc Int : 446 ms POOR DATA QUALITY, INTERPRETATION MAY BE ADVERSELY AFFECTED NORMAL SINUS RHYTHM LEFT VENTRICULAR HYPERTROPHY WITH REPOLARIZATION ABNORMALITY CANNOT RULE OUT SEPTAL INFARCT , AGE UNDETERMINED ABNORMAL ECG Confirmed by MD FRANCIS, RISHI ([id number]) on 04/06/2020 6:09:00 PM Referred By: Confirmed By:RISHI BLANCO MD
[2020-04-06] MEDS: PRAMIPEXOLE DIHYDROCHLORIDE 0.5 MG TABLET PO SCH (22:45)
[2020-04-07 00:50] VITALS: BMI 38.6
[2020-04-07] MEDS ORDERED: ACETAMINOPHEN 1000 MG/100 ML VIAL (NON FORMULARY) IVPB ONE (06:16)
[2020-04-07] MEDS: PANTOPRAZOLE 40 MG TABLET PO SCH ×2 (06:16→14:28)
[2020-04-07] MEDS ORDERED: PANTOPRAZOLE SODIUM 40 MG VIAL IVPUSH ONE (07:00)
[2020-04-07] MEDS ORDERED: REGADENOSON 0.4 MG/5 ML PRE-FILLED SYRINGE IVPUSH ONE ×2 (09:30→12:07)
--- NOTE | 2020-04-07 10:00 | PN ---
Progress Note, Physician History of Present Illness: patient seen and examined anxious Says not feeling well denies specific complains Anxiety + Denies chest pain - Current Medication List Current Medications: Active Medications Albuterol Sulfate (Ventolin Hfa Inhaler -) 2 puff IH Q4H PRN PRN Reason: SHORT OF BREATH/WHEEZING Aspirin (Asa -) 81 mg PO DAILY [facility] Last Admin: 04/06/20 09:58 Dose: 81 mg Documented by: Budesonide/Formoterol Fumarate (Symbicort 160/4.5mcg -) 1 puff IH BID [facility] Last Admin: 04/06/20 22:45 Dose: Not Given Documented by: Cholecalciferol (Vitamin D3 -) 1,000 unit PO DAILY [facility] Last Admin: 04/06/20 10:00 Dose: 1,000 unit Documented by: Ferrous Sulfate (Feosol -) 325 mg PO DAILY [facility] Last Admin: 04/06/20 09:59 Dose: Not Given Documented by: Furosemide (Lasix -) 40 mg PO DAILY [facility] Last Admin: 04/06/20 09:59 Dose: Not Given Documented by: Pantoprazole Sodium (Protonix -) 40 mg PO ACBK [facility] Last Admin: 04/07/20 06:16 Dose: Not Given Documented by: Paroxetine HCl (Paxil -) 20 mg PO DAILY [facility] Last Admin: 04/06/20 09:59 Dose: 20 mg Documented by: Pramipexole Dihydrochloride (Mirapex -) 0.5 mg PO HS [facility] Last Admin: 04/06/20 22:45 Dose: 0.5 mg Documented by: Sodium Chloride ([place] Nasal [place] -) 2 spray NS BID [facility] Last Admin: 04/06/20 21:46 Dose: Not Given Documented by: Tramadol HCl (Ultram -) 50 mg PO TID PRN PRN Reason: PAIN LEVEL 7 - 10 Last Admin: 04/06/20 17:48 Dose: 50 mg Documented by: Valsartan (Diovan -) 320 mg PO DAILY [facility] Last Admin: 04/06/20 09:59 Dose: 320 mg Documented by: - Objective Vital Signs: Vital Signs Temperature 98.7 F 04/07/20 06:00 Pulse Rate 68 04/07/20 06:00 Respiratory Rate 18 04/07/20 06:00 Blood Pressure 158/50 L 04/07/20 06:00 O2 Sat by Pulse Oximetry (%) 98 04/07/20 06:00 Constitutional: Yes: No Distress, Anxious Neck: Yes: Tenderness Cardiovascular: Yes: Regular Rate and Rhythm Respiratory: Yes: CTA Bilaterally Gastrointestinal: Yes: Soft, Other (colostomy +) Edema: No Neurological: Yes: Alert Labs: CBC, BMP 04/06/20 06:24 04/06/20 06:24 Problem List - Problems (1) Chest pain Code(s): R07.9 - CHEST PAIN, UNSPECIFIED Qualifiers: Chest pain type: unspecified Qualified Code(s): R07.9 - Chest pain, uns pecified (2) Colostomy in place Code(s): Z93.3 - COLOSTOMY STATUS (3) Encounter for screening laboratory testing for COVID-19 virus Code(s): Z11.59 - ENCOUNTER FOR SCREENING FOR OTHER VIRAL DISEASES (4) UTI (urinary tract infection) Code(s): N39.0 - URINARY TRACT INFECTION, SITE NOT SPECIFIED Assessment/Plan clinically stable Stress test today will start on abx for uti Xanax for anxiety will follow
[2020-04-07] MEDS ORDERED: AMINOPHYLLINE 250 MG/10 ML VIAL ONE (12:27)
[2020-04-07] MEDS ORDERED: AMINOPHYLLINE 250 MG/10 ML VIAL IVPUSH ONE (12:32)
[2020-04-07] MEDS ORDERED: DEXTROSE 5%-WATER - 50 ML IVPB ONE (14:18)
[2020-04-07] MEDS ORDERED: PT OWN MED DRAWER 7, Y5N ONE ×2 (14:18→22:21)
[2020-04-07] MEDS ORDERED: cefTRIAXone SODIUM 1 GM VIAL ONE (14:18)
[2020-04-07] MEDS: traMADol HCL 50 MG TABLET PO PRN (14:27)
[2020-04-07] MEDS: FUROSEMIDE 40 MG TABLET (FP) PO SCH (14:27)
[2020-04-07] MEDS: ASPIRIN 81 MG CHEWABLE TABLETS PO SCH (14:27)
[2020-04-07] MEDS: CHOLECALCIFEROL (VIT D3) 1,000 UNIT (25 MCG) TABLET PO SCH (14:28)
[2020-04-07] MEDS: ALPRAZolam 0.25 MG TABLET PO PRN (14:28)
[2020-04-07] MEDS: BUDESONIDE/FORMETEROL FUMARATE 160/4.5 mcg INHALER IH SCH ×2 (14:29→22:32)
[2020-04-07] MEDS: FERROUS SO4 325 MG TABLET (FP) PO SCH (14:29)
[2020-04-07] MEDS: CEFTRIAXONE 1 GM in DEXTROSE 5%-WATER - 50 ML IVPB SCH (14:29)
[2020-04-07] MEDS: SODIUM CHLORIDE NASAL SPRAY 44 ML BOTTLE NS SCH ×2 (14:29→22:32)
[2020-04-07] MEDS: VALSARTAN 160 MG TABLET (UD) PO SCH (14:29)
--- NOTE | 2020-04-07 16:50 | PN ---
Progress Note (short form) - Note Progress Note: s: no cp sob palps dizzy Current Medications Generic Name Dose Route Start Last Admin Trade Name Freq PRN Reason Stop Dose Admin Albuterol Sulfate 2 puff 04/06/20 05:25 Ventolin Hfa Inhaler - IH Q4H PRN SHORT OF BREATH/WHEEZING Alprazolam 0.25 mg 04/07/20 14:07 04/07/20 14:28 Xanax - PO 0.25 mg BID PRN Administration ANXIETY Aspirin 81 mg 04/06/20 10:00 04/07/20 14:27 Asa - PO 81 mg DAILY [facility] Administration Budesonide/Formoterol Fumarate 1 puff 04/06/20 10:00 04/07/20 14:29 Symbicort 160/4.5mcg - IH Not Given BID [facility] Cholecalciferol 1,000 unit 04/06/20 10:00 04/07/20 14:28 Vitamin D3 - PO 1,000 unit DAILY [facility] Administration Ferrous Sulfate 325 mg 04/06/20 10:00 04/07/20 14:29 Feosol - PO 325 mg DAILY [facility] Administration Furosemide 40 mg 04/06/20 10:00 04/07/20 14:27 Lasix - PO 40 mg DAILY [facility] Administration Ceftriaxone Sodium 1 gm/ 50 mls @ 200 mls/hr 04/07/20 11:30 04/07/20 14:29 Dextrose IVPB 200 mls/hr DAILY [facility] Administration Protocol Pantoprazole Sodium 40 mg 04/06/20 07:00 04/07/20 14:28 Protonix - PO 40 mg ACBK [facility] Administration Paroxetine HCl 20 mg 04/07/20 15:01 Paxil - PO DAILY [facility] Pramipexole Dihydrochloride 0.5 mg 04/06/20 22:00 04/06/20 22:45 Mirapex - PO 0.5 mg HS [facility] Administration Sodium Chloride 2 spray 04/06/20 10:00 04/07/20 14:29 [place] Nasal [place] - NS Not Given BID [facility] Tramadol HCl 50 mg 04/06/20 05:22 04/07/20 14:27 Ultram - PO 50 mg TID PRN Administration PAIN LEVEL 7 - 10 Valsartan 320 mg 04/06/20 10:00 04/07/20 14:29 Diovan - PO 320 mg DAILY [facility] Administration Vital Signs Period Temp Pulse Resp BP Sys/Mohamud Pulse Ox Last 24 Hr 97.7 F-98.7 F 63-93 18-20 138-170/50-86 98-100 Constitutional: Yes: Well Nourished, No Distress, Obese Eyes: No: Sclera Icterus HENT: No: Nasal Congestion Neck: No: Decreased ROM Respiratory: Yes: CTA Bilaterally. No: Accessory Muscle Use Gastrointestinal: Yes: Normal Bowel Sounds. No: Distention, Hepatomegaly, Palpable Mass, Tenderness Cardiovascular: Yes: Regular Rate and Rhythm JVD: No Carotid Bruit: No PMI: Non-Displaced Heart Sounds: Yes: S1, S2. No: Gallop Murmur: No: Systolic Murmur, Diastolic Murmur Musculoskeletal: Yes: Other (No kyphosis) Extremities: No: Cool, Cyanosis Edema: Yes (mild-mod nonpit ankles) Peripheral Pulses: 2+ Left Carotid, 2+ Right Carotid, 2+ Left Doralis Pedis, 2+ Right Dorsalis Pedis Integumentary: No: Jaundice Neurological: Yes: Alert, Oriented (x3) Psychiatric: No: Agitated - Other Data Labs, Other Data: CBC, BMP 04/06/20 06:24 04/06/20 06:24 Assessment/Plan Echo 02/2019 tds, nl LV function, tr MR, tr TR CXR: clear lungs/pleura ECG: NSR, LVH with repol abnormality, q waves V1/2 (prior ECGs had LBBB) CRUZ, lightheadedness: -? hi bp sx at home -observe sx's with better bp control here-->improved chest pain: -trop neg x 2 -ECG nonsp ST-Ts in LVH pattern -BP poorly controlled at o.v. 2019 sec to non-adherence. -MIBI here shows no ischemia, lvef 68% mild hyponatremia: -improving -monitor labs, pt on thiazide htn: -cont home meds for now venous insuff/le edema: COPD - manage per primary cardiac francois stable for dc
[2020-04-07] MEDS: PARoxetine HCL 20 MG TABLET PO SCH (17:45)
[2020-04-07] MEDS: PARoxetine HCL 10 MG TABLET PO SCH (18:34)
[2020-04-07] MEDS: PRAMIPEXOLE DIHYDROCHLORIDE 0.5 MG TABLET PO SCH (22:28)
[2020-04-08] MEDS: traMADol HCL 50 MG TABLET PO PRN ×2 (01:41→12:19)
[2020-04-08] MEDS: PANTOPRAZOLE 40 MG TABLET PO SCH (07:02)
[2020-04-08 07:52] LABS: BASO % 1.1 % (0-2.0); EOS % 5.1 % (0-4.5); HEMATOCRIT 31.5 % (32.4-45.2); LYMPH % 35.1 % (8-40); MCH 26.7 pg (25.7-33.7); MCHC 31.9 g/dl (32.0-36.0); MEAN CELL VOLUME 83.8 fl (80-96); MEAN PLT VOLUME 8.3 fl (7.5-11.1); MONO % 8.5 % (3.8-10.2); NEUT % 50.2 % (42.8-82.8); PLATELET COUNT 265 K/MM3 (134-434); RBC 3.76 M/mm3 (3.60-5.2); RDW 17.2 % (11.6-15.6)
[2020-04-08 08:17] LABS: BILIRUBIN,TOTAL 0.4 mg/dL (0.2-1); BLOOD UREA NITROGEN 31.6 mg/dL (7-18); CALCIUM 8.6 mg/dL (8.5-10.1); CREATININE 1.3 mg/dL (0.55-1.3); POTASSIUM 4.4 mmol/L (3.5-5.1); TOT PROT 6.7 g/dl (6.4-8.2)
[2020-04-08] MEDS ORDERED: DEXTROSE 5%-WATER - 50 ML IVPB ONE (10:01)
[2020-04-08] MEDS ORDERED: cefTRIAXone SODIUM 1 GM VIAL ONE (10:01)
[2020-04-08] MEDS: FERROUS SO4 325 MG TABLET (FP) PO SCH (11:47)
[2020-04-08] MEDS: ASPIRIN 81 MG CHEWABLE TABLETS PO SCH (11:47)
[2020-04-08] MEDS: VALSARTAN 160 MG TABLET (UD) PO SCH (11:48)
[2020-04-08] MEDS: FUROSEMIDE 40 MG TABLET (FP) PO SCH (11:48)
[2020-04-08] MEDS: BUDESONIDE/FORMETEROL FUMARATE 160/4.5 mcg INHALER IH SCH ×2 (11:49→23:22)
[2020-04-08] MEDS: PARoxetine HCL 20 MG TABLET PO SCH (11:51)
[2020-04-08] MEDS: SODIUM CHLORIDE NASAL SPRAY 44 ML BOTTLE NS SCH ×2 (11:51→23:22)
[2020-04-08] MEDS: CEFTRIAXONE 1 GM in DEXTROSE 5%-WATER - 50 ML IVPB SCH (11:51)
[2020-04-08] MEDS: CHOLECALCIFEROL (VIT D3) 1,000 UNIT (25 MCG) TABLET PO SCH (11:57)
--- NOTE | 2020-04-08 12:00 | PN ---
Progress Note (short form) - Note Progress Note: feels unsteady light headed no sob no chest pain Vital Signs - 24 hr 04/07/20 04/07/20 04/07/20 14:00 22:00 22:29 Temperature 98.4 F Pulse Rate 92 H 72 Respiratory 18 18 18 Rate Blood Pressure 170/80 122/50 L O2 Sat by Pulse 99 98 98 Oximetry (%) 04/08/20 05:14 Temperature 9.8 F L Pulse Rate 75 Respiratory 18 Rate Blood Pressure 156/82 O2 Sat by Pulse 95 Oximetry (%) Current Medications Generic Name Dose Route Start Last Admin Trade Name Freq PRN Reason Stop Dose Admin Albuterol Sulfate 2 puff 04/06/20 05:25 Ventolin Hfa Inhaler - IH Q4H PRN SHORT OF BREATH/WHEEZING Alprazolam 0.25 mg 04/07/20 14:07 04/07/20 14:28 Xanax - PO 0.25 mg BID PRN Administration ANXIETY Aspirin 81 mg 04/06/20 10:00 04/08/20 11:47 Asa - PO 81 mg DAILY [facility] Administration Budesonide/Formoterol Fumarate 1 puff 04/06/20 10:00 04/08/20 11:49 Symbicort 160/4.5mcg - IH 1 puff BID [facility] Administration Cholecalciferol 1,000 unit 04/06/20 10:00 04/08/20 11:57 Vitamin D3 - PO 1,000 unit DAILY [facility] Administration Ferrous Sulfate 325 mg 04/06/20 10:00 04/08/20 11:47 Feosol - PO 325 mg DAILY [facility] Administration Furosemide 40 mg 04/06/20 10:00 04/08/20 11:48 Lasix - PO 40 mg DAILY [facility] Administration Ceftriaxone Sodium 1 gm/ 50 mls @ 200 mls/hr 04/07/20 11:30 04/08/20 11:51 Dextrose IVPB 200 mls/hr DAILY [facility] Administration Protocol Pantoprazole Sodium 40 mg 04/06/20 07:00 04/08/20 07:02 Protonix - PO 40 mg ACBK [facility] Administration Paroxetine HCl 20 mg 04/07/20 15:01 04/08/20 11:51 Paxil - PO 20 mg DAILY [facility] Administration Pramipexole Dihydrochloride 0.5 mg 04/06/20 22:00 04/07/20 22:28 Mirapex - PO 0.5 mg HS [facility] Administration Sodium Chloride 2 spray 04/06/20 10:00 04/08/20 11:51 [place] Nasal [place] - NS 2 spray BID [facility] Administration Tramadol HCl 50 mg 04/06/20 05:22 04/08/20 01:41 Ultram - PO 50 mg TID PRN Administration PAIN LEVEL 7 - 10 Valsartan 320 mg 04/06/20 10:00 04/08/20 11:48 Diovan - PO 320 mg DAILY [facility] Administration Laboratory Results - last 24 hr 04/08/20 04/08/20 07:05 07:05 WBC 10.0 RBC 3.76 Hgb 10.0 L Hct 31.5 L MCV 83.8 MCH 26.7 MCHC 31.9 L RDW 17.2 H Plt Count 265 MPV 8.3 Absolute Neuts (auto) 5.0 Neutrophils % 50.2 Lymphocytes % 35.1 Monocytes % 8.5 Eosinophils % 5.1 H Basophils % 1.1 Nucleated RBC % 0 Sodium 134 L Potassium 4.4 Chloride 102 Carbon Dioxide 25 Anion Gap 7 L BUN 31.6 H Creatinine 1.3 Est GFR (CKD-EPI)AfAm 46.15 Est GFR (CKD-EPI)NonAf 39.82 Random Glucose 91 Calcium 8.6 Total Bilirubin 0.4 AST 12 L ALT 14 Alkaline Phosphatase 63 Total Protein 6.7 Albumin 3.0 L Microbiology 04/06/20 06:22 Urine Culture - Final Urine - Urine Clean Catch Pseudomonas Aeruginosa S1 S2 RRR Lungs decreased Abd- soft, obese,colostomy+ No edema PLAN UTI chest pain HTN unsteady gait -- PT eval -- uses a walker at home -- continue with antibiotics -- stress test negative -- dc planning for tomorrow Problem List - Problems (1) Chest pain Code(s): R07.9 - CHEST PAIN, UNSPECIFIED Qualifiers: Chest pain type: unspecified Qualified Code(s): R07.9 - Chest pain, unspecified (2) Colostomy in place Code(s): Z93.3 - COLOSTOMY STATUS (3) UTI (urinary tract infection) Code(s): N39.0 - URINARY TRACT INFECTION, SITE NOT SPECIFIED
--- NOTE | 2020-04-08 13:43 | PN ---
Progress Note (short form) - Note Progress Note: cc: chest pain s: no cp sob palps dizzy Current Medications Generic Name Dose Route Start Last Admin Trade Name Freq PRN Reason Stop Dose Admin Albuterol Sulfate 2 puff 04/06/20 05:25 Ventolin Hfa Inhaler - IH Q4H PRN SHORT OF BREATH/WHEEZING Alprazolam 0.25 mg 04/07/20 14:07 04/07/20 14:28 Xanax - PO 0.25 mg BID PRN Administration ANXIETY Amlodipine Besylate 10 mg 04/09/20 10:00 Norvasc - PO DAILY [facility] Aspirin 81 mg 04/06/20 10:00 04/08/20 11:47 Asa - PO 81 mg DAILY [facility] Administration Budesonide/Formoterol Fumarate 1 puff 04/06/20 10:00 04/08/20 11:49 Symbicort 160/4.5mcg - IH 1 puff BID [facility] Administration Cholecalciferol 1,000 unit 04/06/20 10:00 04/08/20 11:57 Vitamin D3 - PO 1,000 unit DAILY [facility] Administration Ferrous Sulfate 325 mg 04/06/20 10:00 04/08/20 11:47 Feosol - PO 325 mg DAILY [facility] Administration Furosemide 40 mg 04/06/20 10:00 04/08/20 11:48 Lasix - PO 40 mg DAILY [facility] Administration Ceftriaxone Sodium 1 gm/ 50 mls @ 200 mls/hr 04/07/20 11:30 04/08/20 11:51 Dextrose IVPB 200 mls/hr DAILY [facility] Administration Protocol Pantoprazole Sodium 40 mg 04/06/20 07:00 04/08/20 07:02 Protonix - PO 40 mg ACBK [facility] Administration Paroxetine HCl 20 mg 04/07/20 15:01 04/08/20 11:51 Paxil - PO 20 mg DAILY [facility] Administration Pramipexole Dihydrochloride 0.5 mg 04/06/20 22:00 04/07/20 22:28 Mirapex - PO 0.5 mg HS [facility] Administration Sodium Chloride 2 spray 04/06/20 10:00 04/08/20 11:51 [place] Nasal [place] - NS 2 spray BID [facility] Administration Tramadol HCl 50 mg 04/06/20 05:22 04/08/20 12:19 Ultram - PO 50 mg TID PRN Administration PAIN LEVEL 7 - 10 Valsartan 320 mg 04/06/20 10:00 04/08/20 11:48 Diovan - PO 320 mg DAILY [facility] Administration Vital Signs Period Temp Pulse Resp BP Sys/Mohamud Pulse Ox Last 24 Hr 9.8 F-98.4 F 72-92 18-18 122-170/50-82 95-99 Constitutional: Yes: Well Nourished, No Distress, Obese Eyes: No: Sclera Icterus HENT: No: Nasal Congestion Neck: No: Decreased ROM Respiratory: Yes: CTA Bilaterally. No: Accessory Muscle Use Gastrointestinal: Yes: Normal Bowel Sounds. No: Distention, Hepatomegaly, Palpable Mass, Tenderness Cardiovascular: Yes: Regular Rate and Rhythm JVD: No Carotid Bruit: No PMI: Non-Displaced Heart Sounds: Yes: S1, S2. No: Gallop Murmur: No: Systolic Murmur, Diastolic Murmur Musculoskeletal: Yes: Other (No kyphosis) Extremities: No: Cool, Cyanosis Edema: Yes (mild-mod nonpit ankles) Peripheral Pulses: 2+ Left Carotid, 2+ Right Carotid, 2+ Left Doralis Pedis, 2+ Right Dorsalis Pedis Integumentary: No: Jaundice Neurological: Yes: Alert, Oriented (x3) Psychiatric: No: Agitated Assessment/Plan Echo 02/2019 tds, nl LV function, tr MR, tr TR CXR: clear lungs/pleura ECG: NSR, LVH with repol abnormality, q waves V1/2 (prior ECGs had LBBB) CRUZ, lightheadedness: -? hi bp sx at home -improved with better BP control chest pain: -trop neg x 2 -ECG nonsp ST-Ts in LVH pattern -BP poorly controlled at o.v. 2019 sec to non-adherence -MIBI here shows no ischemia, lvef 68% mild hyponatremia: -improving -monitor labs, pt on thiazide htn: -cont home meds for now venous insuff/le edema: COPD - manage per primary cardiac francois stable for dc
[2020-04-08] MEDS: ALPRAZolam 0.25 MG TABLET PO PRN (16:07)
[2020-04-08] MEDS: PRAMIPEXOLE DIHYDROCHLORIDE 0.5 MG TABLET PO SCH (23:22)
[2020-04-09 05:57] VITALS: TEMP 98.7
[2020-04-09] MEDS: PANTOPRAZOLE 40 MG TABLET PO SCH (06:00)
[2020-04-09] MEDS ORDERED: cefTRIAXone SODIUM 1 GM VIAL ONE (09:20)
[2020-04-09] MEDS ORDERED: DEXTROSE 5%-WATER - 50 ML IVPB ONE (09:20)
[2020-04-09] MEDS: CEFTRIAXONE 1 GM in DEXTROSE 5%-WATER - 50 ML IVPB SCH (09:33)
[2020-04-09] MEDS ORDERED: amLODIPine BESYLATE 10 MG TABLET (FP) PO SCH (10:00)
[2020-04-09] MEDS: PARoxetine HCL 20 MG TABLET PO SCH (10:38)
[2020-04-09] MEDS: FUROSEMIDE 40 MG TABLET (FP) PO SCH (10:38)
[2020-04-09] MEDS: CHOLECALCIFEROL (VIT D3) 1,000 UNIT (25 MCG) TABLET PO SCH (10:38)
[2020-04-09] MEDS: FERROUS SO4 325 MG TABLET (FP) PO SCH (10:38)
[2020-04-09] MEDS: ASPIRIN 81 MG CHEWABLE TABLETS PO SCH (10:38)
[2020-04-09] MEDS: SODIUM CHLORIDE NASAL SPRAY 44 ML BOTTLE NS SCH (10:38)
[2020-04-09] MEDS: BUDESONIDE/FORMETEROL FUMARATE 160/4.5 mcg INHALER IH SCH (10:38)
[2020-04-09] MEDS: VALSARTAN 160 MG TABLET (UD) PO SCH (10:38)
--- NOTE | 2020-04-09 11:50 | CON.ID ---
Consult Consult Specialty:: infectious disease Referred by:: dr jimenez Reason for Consultation:: positive urine culture - History of Present Illness Chief Complaint: presented to ER with htn and weakness/numbness in her arm/chestpain History of Present Illness: no fevers or chills, chronic urinary frequency (on lasix) unchanged no dysuria no sob or cough seen by cardiology for htn and chest pain on rocephin recent colovesicle fistula takedown in January with bladder repair and end colostomy - History Source History Provided By: Patient, Medical Record Limitations to Obtaining History: No Limitations - Past Medical History Cardio/Vascular: Yes: HTN, Other (new LBBB) Pulmonary: Yes: Asthma Gastrointestinal: Yes: Constipation, Diverticulitis (04/08 with some air in u terus/?possible colouterine fistula), Diverticulosis, Other (morbid obesity) Hepatobiliary: Yes: Cholelithiasis (s/p GB surgery) Musculoskeletal: Yes: Osteoarthritis Rheumatology: Yes: Other (osteoarthritis) - Past Surgical History Past Surgical History: Yes: Appendectomy (??? pt not sure, possible RLQ scar), Cataract Removal, Cholecystectomy, Colostomy, Joint Replacement (left knee). No: Colonoscopy - Alcohol/Substance Use Hx Alcohol Use: No History of Substance Use: reports: None - Smoking History Smoking history: Former smoker Have you smoked in the past 12 months: No Aproximately how many cigarettes per day: 0 If you are a former smoker, when did you quit?: about 27 yrs ago - Social History Usual Living Arrangement: With Spouse ADL: Independent (ambulates with walker) Occupation: retired home health aide History of Recent Travel: No Home Medications - Allergies Allergies/Adverse Reactions: Allergies Allergy/AdvReac Type Severity Reaction Status Date / Time PRINCESS Inhibitors Allergy Severe TONGUE Verified 12/10/19 15:35 SWELLING, RASH - Home Medications Home Medications: Ambulatory Orders Albuterol Sulfate [Proair Hfa] 8.5 gm IH PRN PRN 12/10/19 Amlodipine Besylate [Norvasc -] 10 mg PO DAILY 12/10/19 Budesonide/Formeterol Fumarate [SYMBICORT 160/4.5mcg -] 1 inh PO BID 12/10/19 Linaclotide [Linzess] 290 mcg PO DAILY 12/10/19 Mupirocin Ointment [Bactroban 2% Ointment -] 1 applic TP BID 12/10/19 Omeprazole 40 mg PO DAILY 12/10/19 Sodium Chloride Nasal [place] [[place] Nasal [place] -] 2 spray NS BID 12/10/19 Sodium Chloride/Aloe Vera [Saline Nasal Gel] 14.1 gm TP BID 12/10/19 Tramadol HCl 50 mg PO TID 12/10/19 Valsartan 320 mg PO DAILY 12/10/19 Oxycodone HCl/Acetaminophen [Percocet 5-325 mg Tablet] 1 tab PO Q6H PRN #30 tab MDD 4 01/29/20 Amino Acids/Protein Hydrolys [Prosource No Carb Liquid Pkt] 30 ml PO BID@0800,1730 packet 02/04/20 Nystatin Powder [Nystop Powder -] 1 applic TP BID applic 02/04/20 Polyethylene Glycol 3350 [Miralax 119 gm Btl -] 17 gm PO DAILY bottle 02/04/20 Simethicone [Mylicon -] 80 mg PO Q4H PRN tab.chew 02/04/20 Amoxicillin/Potassium Clav [Augmentin 500-125 Tablet] 1 each PO BID #8 tablet 04/08/20 Aspirin [ASA -] 81 mg PO DAILY #30 tab.chew 04/08/20 Cholecalciferol (Vitamin D3) [Vitamin D3 -] 1,000 unit PO DAILY #30 tab 04/08/20 Furosemide [Lasix -] 40 mg PO DAILY #30 tablet 04/08/20 Paroxetine HCl [Paxil -] 20 mg PO DAILY #30 tablet 04/08/20 Pramipexole Dihydrochloride [Mirapex -] 0.5 mg PO HS #30 tablet 04/08/20 Family Medical History Family Hx Coronary Artery Disease: Father (CHF) Family Hx Diabetes: Grandmother (maternal), Mother Family Hx Respiratory Disorders: Sister (Emphysema) Review of Systems - Review of Systems Constitutional: reports: No Symptoms. denies: Chills, Fever Eyes: reports: No Symptoms HENT: reports: No Symptoms Neck: reports: No Symptoms Cardiovascular: reports: No Symptoms. denies: Chest Pain Respiratory: reports: No Symptoms. denies: Cough, SOB Gastrointestinal: denies: Abdominal Pain Genitourinary: reports: Frequency (chronic for years and unchanged). denies: Burning, Discharge, Dysuria, Flank Pain, Hematuria Physical Exam Vital Signs: Vital Signs Temperature 98.7 F 04/09/20 05:30 Pulse Rate 68 04/09/20 05:30 Respiratory Rate 18 04/09/20 05:30 Blood Pressure 149/59 L 04/09/20 05:30 O2 Sat by Pulse Oximetry (%) 95 04/09/20 05:30 Constitutional: Yes: Well Nourished, No Distress Eyes: Yes: Conjunctiva Clear HENT: Yes: Atraumatic, Normocephalic Neck: Yes: Supple Cardiovascular: Yes: Regular Rate and Rhythm Respiratory: Yes: CTA Bilaterally Gastrointestinal: Yes: Normal Bowel Sounds, Soft, Other (colostomy) ...Rectal Exam: Yes: Deferred Renal/: Yes: WNL. No: Bladder Distention, CVA Tenderness - Left, CVA Tenderness - Right Musculoskeletal: Yes: WNL Extremities: Yes: WNL Psychiatric: Yes: Alert, Oriented Labs: CBC, BMP 04/08/20 07:05 04/08/20 07:05 Microbiology 04/06/20 06:22 Urine - Urine Clean Catch Urine Culture - Final Pseudomonas Aeruginosa Problem List - Problems (1) Asymptomatic bacteriuria Code(s): R82.71 - BACTERIURIA (2) Chest pain Code(s): R07.9 - CHEST PAIN, UNSPECIFIED Qualifiers: Chest pain type: unspecified Qualified Code(s): R07.9 - Chest pain, unspecified Assessment/Plan no signs or symptoms of UTI no need to treat for UTI management of htn per PMD
[2020-04-09] MEDS ORDERED: PIPERACILLIN/TAZOB 3.375 GM 3.375 GM in DEXTROSE 5%-WATER - 50 ML IVPB SCH (12:00)
--- NOTE | 2020-04-09 12:06 | PN ---
Progress Note (short form) - Note Progress Note: increased urination no dysuria no sob no chest pain Vital Signs - 24 hr 04/08/20 04/08/20 04/09/20 18:47 22:00 05:30 Temperature 97.6 F 98.7 F Pulse Rate 70 68 Respiratory 18 18 Rate Blood Pressure 146/58 L 149/59 L O2 Sat by Pulse 96 95 Oximetry (%) Current Medications Generic Name Dose Route Start Last Admin Trade Name Freq PRN Reason Stop Dose Admin Albuterol Sulfate 2 puff 04/06/20 05:25 Ventolin Hfa Inhaler - IH Q4H PRN SHORT OF BREATH/WHEEZING Alprazolam 0.25 mg 04/07/20 14:07 04/08/20 16:07 Xanax - PO 0.25 mg BID PRN Administration ANXIETY Amlodipine Besylate 10 mg 04/09/20 10:00 04/09/20 10:38 Norvasc - PO 10 mg DAILY [facility] Administration Aspirin 81 mg 04/06/20 10:00 04/09/20 10:38 Asa - PO 81 mg DAILY [facility] Administration Budesonide/Formoterol Fumarate 1 puff 04/06/20 10:00 04/09/20 10:38 Symbicort 160/4.5mcg - IH 1 puff BID ANANT Administration Cholecalciferol 1,000 unit 04/06/20 10:00 04/09/20 10:38 Vitamin D3 - PO 1,000 unit DAILY [facility]NA[facility] Administration Ferrous Sulfate 325 mg 04/06/20 10:00 04/09/20 10:38 Feosol - PO 325 mg DAILY [facility] Administration Furosemide 40 mg 04/06/20 10:00 04/09/20 10:38 Lasix - PO 40 mg DAILY ANANT Administration Piperacillin Sod/Tazobactam 50 mls @ 100 mls/hr 04/09/20 12:00 Sod 3.375 gm/ Dextrose IVPB Q8H-IV [facility]NA[facility] Protocol Pantoprazole Sodium 40 mg 04/06/20 07:00 04/09/20 06:00 Protonix - PO 40 mg ACBK ANANT Administration Paroxetine HCl 20 mg 04/07/20 15:01 04/09/20 10:38 Paxil - PO 20 mg DAILY [facility] Administration Pramipexole Dihydrochloride 0.5 mg 04/06/20 22:00 04/08/20 23:22 Mirapex - PO 0.5 mg HS ANANT Administration Sodium Chloride 2 spray 04/06/20 10:00 04/09/20 10:38 [place] Nasal [place] - NS 2 spray BID ANANT Administration Valsartan 320 mg 04/06/20 10:00 04/09/20 10:38 Diovan - PO 320 mg DAILY ANANT Administration S1 S2 RRR Lungs decreased Abd- soft, obese,colostomy+ colostomy site-- erythema, not swollen, not tender No edema PLAN UTI chest pain skin abrasion/erosion on colostomy site-- surgical eval HTN unsteady gait -- PT eval -- uses a walker at home -- continue with antibiotics -- stress test negative Problem List - Problems (1) Chest pain Code(s): R07.9 - CHEST PAIN, UNSPECIFIED Qualifiers: Chest pain type: unspecified Qualified Code(s): R07.9 - Chest pain, unspecified (2) Colostomy in place Code(s): Z93.3 - COLOSTOMY STATUS (3) UTI (urinary tract infection) Code(s): N39.0 - URINARY TRACT INFECTION, SITE NOT SPECIFIED
--- NOTE | 2020-04-09 12:23 | DS ---
Physical Examination Vital Signs: Vital Signs Temperature 98.7 F 04/09/20 05:30 Pulse Rate 68 04/09/20 05:30 Respiratory Rate 18 04/09/20 05:30 Blood Pressure 149/59 L 04/09/20 05:30 O2 Sat by Pulse Oximetry (%) 95 04/09/20 05:30 Labs: CBC, BMP 04/08/20 07:05 04/08/20 07:05 Discharge Summary Problems reviewed: Yes Reason For Visit: CHEST PAIN Current Active Problems Chest pain (Acute) Colostomy in place (Acute) Encounter for screening laboratory testing for COVID-19 virus (Acute) UTI (urinary tract infection) (Acute) Other Procedures: see progress note. Stress MIBI negative Hospital Course: stress mibi negative surgeon saw colostomy site-- no infection erythema due to excess rubbing -- advised not to rub too much stable for dc home-- will need complete antibiotics for UTI followup in office 2 weeks Condition: Fair - Instructions Referrals: Valente Connor MD [Primary Care Provider] - Dai Mcintosh MD [Staff Physician] - Disposition: HOME - Home Medications Comprehensive Discharge Medication List: Ambulatory Orders Albuterol Sulfate [Proair Hfa] 8.5 gm IH PRN PRN 12/10/19 Amlodipine Besylate [Norvasc -] 10 mg PO DAILY 12/10/19 Budesonide/Formeterol Fumarate [SYMBICORT 160/4.5mcg -] 1 inh PO BID 12/10/19 Linaclotide [Linzess] 290 mcg PO DAILY 12/10/19 Mupirocin Ointment [Bactroban 2% Ointment -] 1 applic TP BID 12/10/19 Omeprazole 40 mg PO DAILY 12/10/19 Sodium Chloride Nasal [place] [[place] Nasal [place] -] 2 spray NS BID 12/10/19 Sodium Chloride/Aloe Vera [Saline Nasal Gel] 14.1 gm TP BID 12/10/19 Tramadol HCl 50 mg PO TID 12/10/19 Valsartan 320 mg PO DAILY 12/10/19 Oxycodone HCl/Acetaminophen [Percocet 5-325 mg Tablet] 1 tab PO Q6H PRN #30 tab MDD 4 01/29/20 Amino Acids/Protein Hydrolys [Prosource No Carb Liquid Pkt] 30 ml PO BID@0800,1730 packet 02/04/20 Nystatin Powder [Nystop Powder -] 1 applic TP BID applic 02/04/20 Polyethylene Glycol 3350 [Miralax 119 gm Btl -] 17 gm PO DAILY bottle 02/04/20 Simethicone [Mylicon -] 80 mg PO Q4H PRN tab.chew 02/04/20 Amoxicillin/Potassium Clav [Augmentin 500-125 Tablet] 1 each PO BID #8 tablet 04/08/20 Aspirin [ASA -] 81 mg PO DAILY #30 tab.chew 04/08/20 Cholecalciferol (Vitamin D3) [Vitamin D3 -] 1,000 unit PO DAILY #30 tab 04/08/20 Furosemide [Lasix -] 40 mg PO DAILY #30 tablet 04/08/20 Paroxetine HCl [Paxil -] 20 mg PO DAILY #30 tablet 04/08/20 Pramipexole Dihydrochloride [Mirapex -] 0.5 mg PO HS #30 tablet 04/08/20
--- NOTE | 2020-04-09 12:31 | PN ---
Progress Note (short form) - Note Progress Note: cc: chest pain s: no cp sob palps dizzy Current Medications Generic Name Dose Route Start Last Admin Trade Name Freq PRN Reason Stop Dose Admin Albuterol Sulfate 2 puff 04/06/20 05:25 Ventolin Hfa Inhaler - IH Q4H PRN SHORT OF BREATH/WHEEZING Alprazolam 0.25 mg 04/07/20 14:07 04/08/20 16:07 Xanax - PO 0.25 mg BID PRN Administration ANXIETY Amlodipine Besylate 10 mg 04/09/20 10:00 04/09/20 10:38 Norvasc - PO 10 mg DAILY ANANT Administration Aspirin 81 mg 04/06/20 10:00 04/09/20 10:38 Asa - PO 81 mg DAILY ANANT Administration Budesonide/Formoterol Fumarate 1 puff 04/06/20 10:00 04/09/20 10:38 Symbicort 160/4.5mcg - IH 1 puff BID ANANT Administration Cholecalciferol 1,000 unit 04/06/20 10:00 04/09/20 10:38 Vitamin D3 - PO 1,000 unit DAILY ANANT Administration Ferrous Sulfate 325 mg 04/06/20 10:00 04/09/20 10:38 Feosol - PO 325 mg DAILY ANANT Administration Furosemide 40 mg 04/06/20 10:00 04/09/20 10:38 Lasix - PO 40 mg DAILY ANANT Administration Piperacillin Sod/Tazobactam 50 mls @ 100 mls/hr 04/09/20 12:00 Sod 3.375 gm/ Dextrose IVPB Q8H-IV ANANT Protocol Pantoprazole Sodium 40 mg 04/06/20 07:00 04/09/20 06:00 Protonix - PO 40 mg ACBK ANANT Administration Paroxetine HCl 20 mg 04/07/20 15:01 04/09/20 10:38 Paxil - PO 20 mg DAILY ANANT Administration Pramipexole Dihydrochloride 0.5 mg 04/06/20 22:00 04/08/20 23:22 Mirapex - PO 0.5 mg HS ANANT Administration Sodium Chloride 2 spray 04/06/20 10:00 04/09/20 10:38 [place] Nasal [place] - NS 2 spray BID ANANT Administration Valsartan 320 mg 04/06/20 10:00 04/09/20 10:38 Diovan - PO 320 mg DAILY ANANT Administration Vital Signs Period Temp Pulse Resp BP Sys/Mohamud Pulse Ox Last 24 Hr 97.6 F-98.7 F 68-70 18-18 146-149/58-59 95-96 Constitutional: Yes: Well Nourished, No Distress, Obese Eyes: No: Sclera Icterus HENT: No: Nasal Congestion Neck: No: Decreased ROM Respiratory: Yes: CTA Bilaterally. No: Accessory Muscle Use Gastrointestinal: Yes: Normal Bowel Sounds. No: Distention, Hepatomegaly, Palpable Mass, Tenderness Cardiovascular: Yes: Regular Rate and Rhythm JVD: No Carotid Bruit: No PMI: Non-Displaced Heart Sounds: Yes: S1, S2. No: Gallop Murmur: No: Systolic Murmur, Diastolic Murmur Musculoskeletal: Yes: Other (No kyphosis) Extremities: No: Cool, Cyanosis Edema: Yes (mild-mod nonpit ankles) Peripheral Pulses: 2+ Left Carotid, 2+ Right Carotid, 2+ Left Doralis Pedis, 2+ Right Dorsalis Pedis Integumentary: No: Jaundice Neurological: Yes: Alert, Oriented (x3) Psychiatric: No: Agitated Assessment/Plan Echo 02/2019 tds, nl LV function, tr MR, tr TR CXR: clear lungs/pleura ECG: NSR, LVH with repol abnormality, q waves V1/2 (prior ECGs had LBBB) CRUZ, lightheadedness: -? hi bp sx at home -improved with better BP control chest pain: -trop neg x 2 -ECG nonsp ST-Ts in LVH pattern -BP poorly controlled at o.v. 2018 sec to non-adherence -MIBI here shows no ischemia, lvef 68% mild hyponatremia: -improving -monitor labs, pt on thiazide htn: -cont home meds for now venous insuff/le edema: COPD - manage per primary cardiac francois stable for dc
[2020-04-09 14:46] VITALS: BP 123/74; PULSE 79
== END 2020-04-09 18:19 | disposition home or self-care (01) | DRG 690 ==
LOC: SUPCPDRO 21:07 → JER 21:07 → JERBED 04-06 00:23 → J6S 04-06 23:55
PROVIDERS: ADMIT Internal Medicine; ATTEND Internal Medicine
DX: N39.0 Urinary tract infection, site not specified (principal); E87.1 Hypo-osmolality and hyponatremia; R07.89 Other chest pain; I10 Essential (primary) hypertension; K21.9 Gastro-esophageal reflux disease without esophagitis; I11.0 Hypertensive heart disease with heart failure; I50.9 Heart failure, unspecified; F41.9 Anxiety disorder, unspecified; E78.5 Hyperlipidemia, unspecified; J45.909 Unspecified asthma, uncomplicated; R51 Headache; E66.9 Obesity, unspecified; I99.8 Other disorder of circulatory system; Z68.38 Body mass index [BMI] 38.0-38.9, adult; I44.7 Left bundle-branch block, unspecified; J44.9 Chronic obstructive pulmonary disease, unspecified; B96.5 Pseudomonas (aeruginosa) (mallei) (pseudomallei) as the cause of diseases classified elsewhere; K59.00 Constipation, unspecified; R26.81 Unsteadiness on feet; K57.90 Diverticulosis of intestine, part unspecified, without perforation or abscess without bleeding; Z96.652 Presence of left artificial knee joint; Z93.3 Colostomy status; Z11.59 Encounter for screening for other viral diseases
CPT/HCPCS: 36415; 70450-TC; 71045-TC-FY; 78452-TC; 80053; 80061; 81003; 82550; 83721; 83735; 84443; 84484; 85025; 87086; 87186; 93005; 93010; 93017; 97116-GP; 97161-GP; 99285-25; A9502; J0131; J2785; U0003

== ENCOUNTER 2021-06-21 05:43 | Inpatient (IN) | payer OTHER ==
[2021-06-21] MEDS ORDERED: SODIUM CHLORIDE 2,449 ML IV ONE (06:27)
[2021-06-21 09:15] LABS: BASO % 2.7 % (0-2.0); EOS % 4.5 % (0-4.5); HEMATOCRIT 27.9 % (32.4-45.2); HEMOGLOBIN 9.4 GM/dL (10.7-15.3); LYMPH % 22.7 % (8-40); MCH 29.2 pg (25.7-33.7); MCHC 33.7 g/dl (32.0-36.0); MEAN CELL VOLUME 86.8 fl (80-96); MEAN PLT VOLUME 8.4 fl (7.5-11.1); MONO % 7.2 % (3.8-10.2); NEUT % 62.9 % (42.8-82.8); PLATELET COUNT 152 10^3/uL (134-434); RBC 3.22 M/mm3 (3.60-5.2); RDW 16.3 % (11.6-15.6); VENOUS BASE EXCESS -0.7 mmol/L (-2-2); VENOUS O2 SATURATION 65.7 % (70-80); VENOUS PCO2 39.5 mmHg (38-52); VENOUS PH 7.401 (7.310-7.410); WHITE BLOOD COUNT 5.2 K/mm3 (4.0-10.0)
[2021-06-21 09:36] LABS: CALCIUM 8.1 mg/dL (8.5-10.1)
[2021-06-21 09:37] LABS: ALBUMIN 2.6 g/dl (3.4-5.0)
[2021-06-21 09:40] LABS: CREATININE 1.3 mg/dL (0.55-1.3)
[2021-06-21 09:42] LABS: BILIRUBIN,TOTAL 0.4 mg/dL (0.2-1); TOT PROT 6.5 g/dl (6.4-8.2)
[2021-06-21 09:45] LABS: N-TERMINAL BNP 18811.8 pg/ml (5-450)
[2021-06-21] MEDS ORDERED: FUROSEMIDE 40 MG/4 ML INJECTABLE VIAL IVPUSH ONE (09:54)
[2021-06-21 10:50] LABS: EPI CELLS 17 /uL (0-25.1); HYALINE CASTS 9 /uL (0-3.1); URINE APPEARANCE TURBID; URINE BACTERIA 2627 /uL (0-1359); URINE BILIRUBIN NEGATIVE (NEGATIVE); URINE COLOR YELLOW; URINE GLUCOSE (UA) NEGATIVE (NEGATIVE); URINE KETONE NEGATIVE (NEGATIVE); URINE LEUK ESTERASE 3+ (NEGATIVE); URINE NITRITE NEGATIVE (NEGATIVE); URINE PROTEIN 2+ (NEGATIVE); URINE WBC 17891 /uL (0-25.8)
[2021-06-21 11:12] LABS: URINE RBC 367 /uL (0-23.9); YEAST NO SEEN (NEGATIVE)
[2021-06-21] MEDS ORDERED: FUROSEMIDE 40 MG/4 ML INJECTABLE VIAL ONE (11:18)
[2021-06-21] MEDS ORDERED: ALBUTEROL SO4 HFA INHALER IH PRN (12:25)
[2021-06-21] MEDS ORDERED: traMADol HCL 50 MG TABLET PO PRN (12:25)
[2021-06-21 20:04] LABS: INR 1.11 (0.83-1.09); PROTHROMBIN TIME (PATIENT) 12.5 SEC (9.7-13.0)
[2021-06-21 20:07] LABS: ACTIVATED PTT 25.2 SECONDS (25.2-36.5)
[2021-06-22] MEDS ORDERED: HEPARIN NA (PORCINE) 5,000 UNITS/ML 1ML VIAL ONE ×3 (01:54→22:15)
[2021-06-22] MEDS: AMINO ACIDS/PROTEIN HYDROLYS 30 ML LIQUID.PKT PO SCH ×3 (03:16→17:35)
[2021-06-22] MEDS: HEPARIN NA (PORCINE) 5,000 UNITS/ML 1ML VIAL SQ SCH ×3 (03:28→22:20)
[2021-06-22] MEDS: SODIUM CHLORIDE NASAL SPRAY 44 ML BOTTLE NS SCH ×3 (03:28→22:21)
[2021-06-22] MEDS: BUDESONIDE/FORMETEROL FUMARATE 160/4.5 mcg INHALER IH SCH ×4 (03:28→22:34)
[2021-06-22] MEDS: PRAMIPEXOLE DIHYDROCHLORIDE 0.5 MG TABLET PO SCH (03:28)
[2021-06-22] MEDS: PANTOPRAZOLE 40 MG TABLET PO SCH ×2 (03:59→10:09)
[2021-06-22] MEDS: SIMETHICONE 80 MG TAB.CHEW (FP) PO PRN ×2 (04:00→20:20)
[2021-06-22] MEDS: MUPIROCIN 2% TOPICAL OINTMENT 22 GM TUBE TP SCH ×3 (07:08→22:20)
[2021-06-22] MEDS: NYSTATIN POWDER 100,000 UNITS/GM - 15 GM TOPICAL POWDER TP SCH ×3 (07:08→22:20)
[2021-06-22 08:19] LABS: BASO % 1.2 % (0-2.0); HEMATOCRIT 30.5 % (32.4-45.2); HEMOGLOBIN 10.2 GM/dL (10.7-15.3); LYMPH % 30.7 % (8-40); MCH 29.2 pg (25.7-33.7); MCHC 33.3 g/dl (32.0-36.0); MEAN CELL VOLUME 87.6 fl (80-96); MEAN PLT VOLUME 8.7 fl (7.5-11.1); NEUT % 50.1 % (42.8-82.8); PLATELET COUNT 195 10^3/uL (134-434); RBC 3.48 M/mm3 (3.60-5.2); RDW 15.9 % (11.6-15.6); WHITE BLOOD COUNT 5.6 K/mm3 (4.0-10.0)
[2021-06-22 08:36] LABS: ALBUMIN 2.7 g/dl (3.4-5.0); BLOOD UREA NITROGEN 23.6 mg/dL (7-18); CALCIUM 8.3 mg/dL (8.5-10.1)
[2021-06-22 08:40] LABS: CREATININE 1.4 mg/dL (0.55-1.3)
[2021-06-22 08:41] LABS: BILIRUBIN,TOTAL 0.5 mg/dL (0.2-1); TOT PROT 6.6 g/dl (6.4-8.2)
[2021-06-22] MEDS ORDERED: POLYETHYLENE GLYCOL (HEALTHYLAX) 3350 17 GM PACKET ONE (09:55)
[2021-06-22] MEDS ORDERED: ASPIRIN COATED 81 MG TABLET.EC ONE (09:55)
[2021-06-22] MEDS ORDERED: PANTOPRAZOLE 40 MG TABLET ONE (09:55)
[2021-06-22] MEDS ORDERED: FUROSEMIDE 40 MG/4 ML INJECTABLE VIAL ONE (09:55)
[2021-06-22] MEDS: POLYETHYLENE GLYCOL (HEALTHYLAX) 3350 17 GM PACKET PO SCH (10:10)
[2021-06-22] MEDS: VALSARTAN 160 MG TABLET PO SCH (10:10)
[2021-06-22] MEDS: ASPIRIN 81 MG CHEWABLE TABLETS PO SCH (10:10)
[2021-06-22] MEDS: PARoxetine HCL 20 MG TABLET PO SCH (10:10)
[2021-06-22] MEDS: FUROSEMIDE 40 MG/4 ML INJECTABLE VIAL IVPUSH SCH (10:10)
[2021-06-22] MEDS: CHOLECALCIFEROL (VIT D3) 1,000 UNIT (25 MCG) TABLET PO SCH (10:11)
[2021-06-22] MEDS ORDERED: MAG HYDROX/AL HYDROX/SIMETH 30 ML UNIT-DOSE CUP PO PRN (12:58)
[2021-06-22] MEDS ORDERED: clonazePAM 0.5 MG TABLET ONE (22:15)
[2021-06-22] MEDS: clonazePAM 0.25 MG ODT TABLETS SL SCH (22:20)
[2021-06-23 07:18] LABS: CALCIUM 8.6 mg/dL (8.5-10.1)
[2021-06-23 07:20] LABS: BLOOD UREA NITROGEN 27.6 mg/dL (7-18)
[2021-06-23 07:23] LABS: CREATININE 1.5 mg/dL (0.55-1.3)
[2021-06-23] MEDS ORDERED: POLYETHYLENE GLYCOL (HEALTHYLAX) 3350 17 GM PACKET ONE (08:18)
[2021-06-23] MEDS ORDERED: ASPIRIN 81 MG CHEWABLE TABLETS ONE (08:18)
[2021-06-23] MEDS ORDERED: FAMOTIDINE 20 MG TABLET ONE (08:18)
[2021-06-23] MEDS ORDERED: clonazePAM 0.25 MG ODT TABLETS SL ONE (08:18)
[2021-06-23] MEDS ORDERED: FUROSEMIDE 40 MG/4 ML INJECTABLE VIAL ONE (08:19)
[2021-06-23] MEDS ORDERED: CHOLECALCIFEROL (VIT D3) 1,000 UNIT (25 MCG) TABLET ONE (08:19)
[2021-06-23] MEDS: AMINO ACIDS/PROTEIN HYDROLYS 30 ML LIQUID.PKT PO SCH ×2 (08:55→17:56)
[2021-06-23] MEDS: NYSTATIN POWDER 100,000 UNITS/GM - 15 GM TOPICAL POWDER TP SCH ×2 (09:27→23:11)
[2021-06-23] MEDS: MUPIROCIN 2% TOPICAL OINTMENT 22 GM TUBE TP SCH ×3 (09:27→23:22)
[2021-06-23] MEDS: VALSARTAN 160 MG TABLET PO SCH (09:28)
[2021-06-23] MEDS: clonazePAM 0.25 MG ODT TABLETS SL SCH ×2 (09:28→22:18)
[2021-06-23] MEDS: POLYETHYLENE GLYCOL (HEALTHYLAX) 3350 17 GM PACKET PO SCH (09:28)
[2021-06-23] MEDS: PARoxetine HCL 20 MG TABLET PO SCH (09:28)
[2021-06-23] MEDS: FUROSEMIDE 40 MG/4 ML INJECTABLE VIAL IVPUSH SCH (09:28)
[2021-06-23] MEDS: SODIUM CHLORIDE NASAL SPRAY 44 ML BOTTLE NS SCH ×2 (09:28→23:11)
[2021-06-23] MEDS: CHOLECALCIFEROL (VIT D3) 1,000 UNIT (25 MCG) TABLET PO SCH (09:28)
[2021-06-23] MEDS: ASPIRIN 81 MG CHEWABLE TABLETS PO SCH (09:28)
[2021-06-23] MEDS: BUDESONIDE/FORMETEROL FUMARATE 160/4.5 mcg INHALER IH SCH ×2 (09:28→22:24)
[2021-06-23] MEDS: FAMOTIDINE 20 MG TABLET PO SCH (09:29)
[2021-06-23] MEDS ORDERED: HEPARIN NA (PORCINE) 5,000 UNITS/ML 1ML VIAL ONE (09:32)
[2021-06-23] MEDS ORDERED: FAMOTIDINE 20 MG TABLET PO SCH (10:00)
[2021-06-23] MEDS: HEPARIN NA (PORCINE) 5,000 UNITS/ML 1ML VIAL SQ SCH ×2 (10:30→22:20)
[2021-06-23] MEDS ORDERED: ALBUTEROL SO4 HFA INHALER IH PRN (11:30)
[2021-06-23] MEDS ORDERED: MAG HYDROX/AL HYDROX/SIMETH 30 ML UNIT-DOSE CUP PO PRN (11:30)
[2021-06-23] MEDS ORDERED: SIMETHICONE 80 MG TAB.CHEW (FP) PO PRN (11:30)
[2021-06-23] MEDS ORDERED: PT OWN MED DRAWER 7, Y5N ONE ×3 (14:31→22:16)
[2021-06-23] MEDS: ERTAPENEM SODIUM 1 GM in SODIUM CHLORIDE 50 ML IVPB SCH (14:40)
[2021-06-23] MEDS: PRAMIPEXOLE DIHYDROCHLORIDE 0.5 MG TABLET PO SCH ×2 (15:13→23:12)
[2021-06-23] MEDS: traMADol HCL 50 MG TABLET PO PRN (22:16)
[2021-06-24] MEDS ORDERED: PT OWN MED DRAWER 7, Y5N ONE (09:24)
[2021-06-24] MEDS: FAMOTIDINE 20 MG TABLET PO SCH (09:27)
[2021-06-24] MEDS: PARoxetine HCL 20 MG TABLET PO SCH (09:27)
[2021-06-24] MEDS: clonazePAM 0.25 MG ODT TABLETS SL SCH ×2 (09:28→21:19)
[2021-06-24] MEDS: AMINO ACIDS/PROTEIN HYDROLYS 30 ML LIQUID.PKT PO SCH ×2 (09:28→18:31)
[2021-06-24] MEDS: POLYETHYLENE GLYCOL (HEALTHYLAX) 3350 17 GM PACKET PO SCH (09:28)
[2021-06-24] MEDS: CHOLECALCIFEROL (VIT D3) 1,000 UNIT (25 MCG) TABLET PO SCH (09:28)
[2021-06-24] MEDS: BUDESONIDE/FORMETEROL FUMARATE 160/4.5 mcg INHALER IH SCH ×2 (09:30→21:24)
[2021-06-24] MEDS: NYSTATIN POWDER 100,000 UNITS/GM - 15 GM TOPICAL POWDER TP SCH ×2 (09:30→21:27)
[2021-06-24] MEDS: SODIUM CHLORIDE NASAL SPRAY 44 ML BOTTLE NS SCH ×2 (09:30→21:25)
[2021-06-24] MEDS: ASPIRIN 81 MG CHEWABLE TABLETS PO SCH (09:40)
[2021-06-24] MEDS: MUPIROCIN 2% TOPICAL OINTMENT 22 GM TUBE TP SCH ×2 (09:41→21:26)
[2021-06-24] MEDS ORDERED: FUROSEMIDE 40 MG/4 ML INJECTABLE VIAL IVPUSH SCH (10:00)
[2021-06-24 10:43] LABS: HEMATOCRIT 32.7 % (32.4-45.2); MCH 29.2 pg (25.7-33.7); MCHC 33.5 g/dl (32.0-36.0); MEAN CELL VOLUME 87.1 fl (80-96); MEAN PLT VOLUME 8.3 fl (7.5-11.1); PLATELET COUNT 224 10^3/uL (134-434); RBC 3.75 M/mm3 (3.60-5.2); RDW 16.3 % (11.6-15.6); WHITE BLOOD COUNT 6.6 K/mm3 (4.0-10.0)
[2021-06-24 11:08] LABS: BLOOD UREA NITROGEN 32.4 mg/dL (7-18)
[2021-06-24 11:12] LABS: CREATININE 1.6 mg/dL (0.55-1.3)
[2021-06-24 11:13] LABS: BILIRUBIN,TOTAL 0.4 mg/dL (0.2-1); TOT PROT 7.2 g/dl (6.4-8.2)
[2021-06-24] MEDS: HEPARIN NA (PORCINE) 5,000 UNITS/ML 1ML VIAL SQ SCH ×2 (12:09→21:21)
[2021-06-24] MEDS: VALSARTAN 160 MG TABLET PO SCH (12:09)
[2021-06-24] MEDS: ERTAPENEM SODIUM 1 GM in SODIUM CHLORIDE 50 ML IVPB SCH (12:11)
[2021-06-24] MEDS: PRAMIPEXOLE DIHYDROCHLORIDE 0.5 MG TABLET PO SCH (21:21)
[2021-06-24] MEDS: traMADol HCL 50 MG TABLET PO PRN (21:22)
[2021-06-25 08:17] LABS: BLOOD UREA NITROGEN 32.4 mg/dL (7-18); CALCIUM 8.6 mg/dL (8.5-10.1)
[2021-06-25 08:23] LABS: CREATININE 1.4 mg/dL (0.55-1.3)
[2021-06-25] MEDS ORDERED: PT OWN MED DRAWER 7, Y5N ONE ×2 (09:34→21:27)
[2021-06-25] MEDS: AMINO ACIDS/PROTEIN HYDROLYS 30 ML LIQUID.PKT PO SCH ×2 (09:47→17:09)
[2021-06-25] MEDS: ASPIRIN 81 MG CHEWABLE TABLETS PO SCH (09:48)
[2021-06-25] MEDS: FAMOTIDINE 20 MG TABLET PO SCH (09:48)
[2021-06-25] MEDS: clonazePAM 0.25 MG ODT TABLETS SL SCH ×2 (09:49→21:53)
[2021-06-25] MEDS: CHOLECALCIFEROL (VIT D3) 1,000 UNIT (25 MCG) TABLET PO SCH (09:49)
[2021-06-25] MEDS: VALSARTAN 160 MG TABLET PO SCH (09:49)
[2021-06-25] MEDS: POLYETHYLENE GLYCOL (HEALTHYLAX) 3350 17 GM PACKET PO SCH (09:51)
[2021-06-25] MEDS: HEPARIN NA (PORCINE) 5,000 UNITS/ML 1ML VIAL SQ SCH ×2 (09:51→21:53)
[2021-06-25] MEDS: ERTAPENEM SODIUM 1 GM in SODIUM CHLORIDE 50 ML IVPB SCH (09:53)
[2021-06-25] MEDS: BUDESONIDE/FORMETEROL FUMARATE 160/4.5 mcg INHALER IH SCH ×2 (09:54→21:55)
[2021-06-25] MEDS: MUPIROCIN 2% TOPICAL OINTMENT 22 GM TUBE TP SCH ×2 (10:06→21:54)
[2021-06-25] MEDS: NYSTATIN POWDER 100,000 UNITS/GM - 15 GM TOPICAL POWDER TP SCH ×2 (10:06→21:53)
[2021-06-25] MEDS: SODIUM CHLORIDE NASAL SPRAY 44 ML BOTTLE NS SCH ×2 (10:07→21:54)
[2021-06-25] MEDS: FUROSEMIDE 40 MG TABLET (FP) PO SCH (11:21)
[2021-06-25] MEDS: PARoxetine HCL 20 MG TABLET PO SCH (11:22)
[2021-06-25] MEDS: GABAPENTIN 100 MG CAPSULE PO SCH ×2 (14:48→21:54)
[2021-06-25] MEDS: traMADol HCL 50 MG TABLET PO PRN (21:52)
[2021-06-25] MEDS: PRAMIPEXOLE DIHYDROCHLORIDE 0.5 MG TABLET PO SCH (21:53)
[2021-06-26] MEDS: GABAPENTIN 100 MG CAPSULE PO SCH ×3 (06:51→21:24)
[2021-06-26 08:41] LABS: HEMATOCRIT 31.7 % (32.4-45.2); HEMOGLOBIN 10.9 GM/dL (10.7-15.3); MCH 29.2 pg (25.7-33.7); MCHC 34.4 g/dl (32.0-36.0); MEAN CELL VOLUME 84.7 fl (80-96); MEAN PLT VOLUME 7.5 fl (7.5-11.1); PLATELET COUNT 224 10^3/uL (134-434); RBC 3.74 M/mm3 (3.60-5.2); WHITE BLOOD COUNT 10.6 K/mm3 (4.0-10.0)
[2021-06-26 09:05] LABS: CALCIUM 8.9 mg/dL (8.5-10.1)
[2021-06-26 09:06] LABS: ALBUMIN 3.1 g/dl (3.4-5.0); BLOOD UREA NITROGEN 34.8 mg/dL (7-18)
[2021-06-26 09:09] LABS: CREATININE 1.6 mg/dL (0.55-1.3)
[2021-06-26 09:10] LABS: BILIRUBIN,TOTAL 0.5 mg/dL (0.2-1); TOT PROT 7.4 g/dl (6.4-8.2)
[2021-06-26] MEDS: AMINO ACIDS/PROTEIN HYDROLYS 30 ML LIQUID.PKT PO SCH ×2 (09:58→18:09)
[2021-06-26] MEDS: VALSARTAN 160 MG TABLET PO SCH (09:58)
[2021-06-26] MEDS: FUROSEMIDE 40 MG TABLET (FP) PO SCH (09:59)
[2021-06-26] MEDS: CHOLECALCIFEROL (VIT D3) 1,000 UNIT (25 MCG) TABLET PO SCH (09:59)
[2021-06-26] MEDS: FAMOTIDINE 20 MG TABLET PO SCH (10:00)
[2021-06-26] MEDS: ASPIRIN 81 MG CHEWABLE TABLETS PO SCH (10:00)
[2021-06-26] MEDS: MUPIROCIN 2% TOPICAL OINTMENT 22 GM TUBE TP SCH ×2 (10:01→21:26)
[2021-06-26] MEDS: clonazePAM 0.25 MG ODT TABLETS SL SCH ×2 (10:01→21:25)
[2021-06-26] MEDS: HEPARIN NA (PORCINE) 5,000 UNITS/ML 1ML VIAL SQ SCH ×2 (10:03→21:24)
[2021-06-26] MEDS: ERTAPENEM SODIUM 1 GM in SODIUM CHLORIDE 50 ML IVPB SCH (10:03)
[2021-06-26] MEDS: POLYETHYLENE GLYCOL (HEALTHYLAX) 3350 17 GM PACKET PO SCH (10:03)
[2021-06-26] MEDS: NYSTATIN POWDER 100,000 UNITS/GM - 15 GM TOPICAL POWDER TP SCH ×2 (10:13→21:25)
[2021-06-26] MEDS: BUDESONIDE/FORMETEROL FUMARATE 160/4.5 mcg INHALER IH SCH ×2 (10:13→21:28)
[2021-06-26] MEDS: SODIUM CHLORIDE NASAL SPRAY 44 ML BOTTLE NS SCH ×2 (10:13→21:27)
[2021-06-26] MEDS: PARoxetine HCL 20 MG TABLET PO SCH (10:14)
[2021-06-26] MEDS: PRAMIPEXOLE DIHYDROCHLORIDE 0.5 MG TABLET PO SCH (21:27)
[2021-06-27] MEDS: GABAPENTIN 100 MG CAPSULE PO SCH ×3 (06:14→21:35)
[2021-06-27] MEDS ORDERED: PT OWN MED DRAWER 7, Y5N ONE (09:51)
[2021-06-27] MEDS: VALSARTAN 160 MG TABLET PO SCH (10:02)
[2021-06-27] MEDS: ERTAPENEM SODIUM 1 GM in SODIUM CHLORIDE 50 ML IVPB SCH (10:02)
[2021-06-27] MEDS: clonazePAM 0.25 MG ODT TABLETS SL SCH ×2 (10:02→21:35)
[2021-06-27] MEDS: POLYETHYLENE GLYCOL (HEALTHYLAX) 3350 17 GM PACKET PO SCH (10:03)
[2021-06-27] MEDS: MUPIROCIN 2% TOPICAL OINTMENT 22 GM TUBE TP SCH (10:03)
[2021-06-27] MEDS: ASPIRIN 81 MG CHEWABLE TABLETS PO SCH (10:03)
[2021-06-27] MEDS: SODIUM CHLORIDE NASAL SPRAY 44 ML BOTTLE NS SCH ×2 (10:03→21:35)
[2021-06-27] MEDS: CHOLECALCIFEROL (VIT D3) 1,000 UNIT (25 MCG) TABLET PO SCH (10:03)
[2021-06-27] MEDS: NYSTATIN POWDER 100,000 UNITS/GM - 15 GM TOPICAL POWDER TP SCH ×2 (10:03→21:35)
[2021-06-27] MEDS: FUROSEMIDE 40 MG TABLET (FP) PO SCH (10:03)
[2021-06-27] MEDS: AMINO ACIDS/PROTEIN HYDROLYS 30 ML LIQUID.PKT PO SCH ×2 (10:03→18:28)
[2021-06-27] MEDS: HEPARIN NA (PORCINE) 5,000 UNITS/ML 1ML VIAL SQ SCH ×2 (10:03→21:35)
[2021-06-27] MEDS: BUDESONIDE/FORMETEROL FUMARATE 160/4.5 mcg INHALER IH SCH ×2 (10:04→21:36)
[2021-06-27] MEDS: PARoxetine HCL 20 MG TABLET PO SCH (10:04)
[2021-06-27] MEDS: FAMOTIDINE 20 MG TABLET PO SCH (10:04)
[2021-06-27] MEDS: LIDOCAINE 5% TOPICAL PATCH TP SCH (15:06)
[2021-06-27] MEDS: LIDOCAINE PATCH REMOVAL MC SCH (21:35)
[2021-06-27] MEDS: PRAMIPEXOLE DIHYDROCHLORIDE 0.5 MG TABLET PO SCH (21:35)
[2021-06-28] MEDS: GABAPENTIN 100 MG CAPSULE PO SCH ×3 (06:23→21:14)
[2021-06-28] MEDS: AMINO ACIDS/PROTEIN HYDROLYS 30 ML LIQUID.PKT PO SCH ×2 (09:21→17:25)
[2021-06-28 09:23] LABS: BASO % 0.5 % (0-2.0); EOS % 0.4 % (0-4.5); LYMPH % 21.2 % (8-40); MCHC 33.3 g/dl (32.0-36.0); MEAN PLT VOLUME 8.5 fl (7.5-11.1); MONO % 9.1 % (3.8-10.2); NEUT % 68.8 % (42.8-82.8); PLATELET COUNT 251 10^3/uL (134-434); RDW 15.9 % (11.6-15.6); WHITE BLOOD COUNT 11.2 K/mm3 (4.0-10.0)
[2021-06-28 09:58] LABS: ALBUMIN 2.9 g/dl (3.4-5.0); CALCIUM 8.5 mg/dL (8.5-10.1)
[2021-06-28 09:59] LABS: BLOOD UREA NITROGEN 54.7 mg/dL (7-18)
[2021-06-28 10:02] LABS: CREATININE 2.1 mg/dL (0.55-1.3)
[2021-06-28 10:03] LABS: BILIRUBIN,TOTAL 0.8 mg/dL (0.2-1); TOT PROT 7.6 g/dl (6.4-8.2)
[2021-06-28] MEDS: clonazePAM 0.25 MG ODT TABLETS SL SCH ×2 (10:08→21:11)
[2021-06-28] MEDS ORDERED: PT OWN MED DRAWER 7, Y5N ONE ×3 (10:16→21:06)
[2021-06-28] MEDS: POLYETHYLENE GLYCOL (HEALTHYLAX) 3350 17 GM PACKET PO SCH (10:19)
[2021-06-28] MEDS: ERTAPENEM SODIUM 1 GM in SODIUM CHLORIDE 50 ML IVPB SCH (10:21)
[2021-06-28] MEDS: LIDOCAINE 5% TOPICAL PATCH TP SCH (10:22)
[2021-06-28] MEDS: FAMOTIDINE 20 MG TABLET PO SCH (10:22)
[2021-06-28] MEDS: NYSTATIN POWDER 100,000 UNITS/GM - 15 GM TOPICAL POWDER TP SCH ×2 (10:22→21:14)
[2021-06-28] MEDS: FUROSEMIDE 40 MG TABLET (FP) PO SCH (10:22)
[2021-06-28] MEDS: VALSARTAN 160 MG TABLET PO SCH (10:22)
[2021-06-28] MEDS: HEPARIN NA (PORCINE) 5,000 UNITS/ML 1ML VIAL SQ SCH ×2 (10:22→21:12)
[2021-06-28] MEDS: SODIUM CHLORIDE NASAL SPRAY 44 ML BOTTLE NS SCH ×2 (10:22→21:14)
[2021-06-28] MEDS: ASPIRIN 81 MG CHEWABLE TABLETS PO SCH (10:22)
[2021-06-28] MEDS: CHOLECALCIFEROL (VIT D3) 1,000 UNIT (25 MCG) TABLET PO SCH (10:22)
[2021-06-28] MEDS: BUDESONIDE/FORMETEROL FUMARATE 160/4.5 mcg INHALER IH SCH ×2 (10:23→21:16)
[2021-06-28] MEDS: PARoxetine HCL 20 MG TABLET PO SCH (10:23)
[2021-06-28] MEDS: ACETAMINOPHEN 325 MG TABLET (FP) PO PRN (17:32)
[2021-06-28] MEDS: CYCLOBENZAPRINE HCL 5 MG TABLET PO SCH (21:12)
[2021-06-28] MEDS: LIDOCAINE PATCH REMOVAL MC SCH (21:13)
[2021-06-28] MEDS: PRAMIPEXOLE DIHYDROCHLORIDE 0.5 MG TABLET PO SCH (21:14)
[2021-06-29] MEDS: GABAPENTIN 100 MG CAPSULE PO SCH ×3 (06:03→21:11)
[2021-06-29] MEDS: AMINO ACIDS/PROTEIN HYDROLYS 30 ML LIQUID.PKT PO SCH ×3 (08:54→18:35)
[2021-06-29] MEDS ORDERED: PT OWN MED DRAWER 7, Y5N ONE ×2 (09:42→20:45)
[2021-06-29] MEDS: clonazePAM 0.25 MG ODT TABLETS SL SCH ×2 (09:45→21:11)
[2021-06-29] MEDS: CYCLOBENZAPRINE HCL 5 MG TABLET PO SCH ×2 (09:45→21:10)
[2021-06-29] MEDS: VALSARTAN 160 MG TABLET PO SCH (09:45)
[2021-06-29] MEDS: ASPIRIN 81 MG CHEWABLE TABLETS PO SCH (09:46)
[2021-06-29] MEDS: FAMOTIDINE 20 MG TABLET PO SCH (09:46)
[2021-06-29] MEDS: HEPARIN NA (PORCINE) 5,000 UNITS/ML 1ML VIAL SQ SCH ×2 (09:46→21:10)
[2021-06-29] MEDS: CHOLECALCIFEROL (VIT D3) 1,000 UNIT (25 MCG) TABLET PO SCH (09:46)
[2021-06-29] MEDS: FUROSEMIDE 40 MG TABLET (FP) PO SCH (09:46)
[2021-06-29] MEDS: LIDOCAINE 5% TOPICAL PATCH TP SCH (09:46)
[2021-06-29] MEDS: POLYETHYLENE GLYCOL (HEALTHYLAX) 3350 17 GM PACKET PO SCH (09:47)
[2021-06-29] MEDS: ERTAPENEM SODIUM 1 GM in SODIUM CHLORIDE 50 ML IVPB SCH (09:47)
[2021-06-29] MEDS: NYSTATIN POWDER 100,000 UNITS/GM - 15 GM TOPICAL POWDER TP SCH ×2 (09:47→21:13)
[2021-06-29] MEDS: BUDESONIDE/FORMETEROL FUMARATE 160/4.5 mcg INHALER IH SCH ×2 (09:48→21:13)
[2021-06-29] MEDS: SODIUM CHLORIDE NASAL SPRAY 44 ML BOTTLE NS SCH ×2 (09:48→21:13)
[2021-06-29] MEDS: PARoxetine HCL 20 MG TABLET PO SCH (09:48)
[2021-06-29 14:49] VITALS: BMI 33.5
[2021-06-29] MEDS: PRAMIPEXOLE DIHYDROCHLORIDE 0.5 MG TABLET PO SCH (21:11)
[2021-06-29] MEDS: LIDOCAINE PATCH REMOVAL MC SCH (21:13)
[2021-06-30] MEDS: GABAPENTIN 100 MG CAPSULE PO SCH (06:08)
[2021-06-30] MEDS: PARoxetine HCL 20 MG TABLET PO SCH (09:25)
[2021-06-30] MEDS: MULTIVITAMINS THER W-MINERALS COMBO TABLET (FP) PO SCH (09:25)
[2021-06-30] MEDS: CYCLOBENZAPRINE HCL 5 MG TABLET PO SCH (09:25)
[2021-06-30] MEDS: FAMOTIDINE 20 MG TABLET PO SCH (09:25)
[2021-06-30] MEDS: LIDOCAINE 5% TOPICAL PATCH TP SCH (09:25)
[2021-06-30] MEDS: CHOLECALCIFEROL (VIT D3) 1,000 UNIT (25 MCG) TABLET PO SCH (09:26)
[2021-06-30] MEDS: AMINO ACIDS/PROTEIN HYDROLYS 30 ML LIQUID.PKT PO SCH ×2 (09:26→17:40)
[2021-06-30] MEDS: POLYETHYLENE GLYCOL (HEALTHYLAX) 3350 17 GM PACKET PO SCH (09:26)
[2021-06-30] MEDS: ASPIRIN 81 MG CHEWABLE TABLETS PO SCH (09:26)
[2021-06-30] MEDS: NYSTATIN POWDER 100,000 UNITS/GM - 15 GM TOPICAL POWDER TP SCH ×2 (09:27→22:43)
[2021-06-30] MEDS: BUDESONIDE/FORMETEROL FUMARATE 160/4.5 mcg INHALER IH SCH ×2 (09:27→22:44)
[2021-06-30] MEDS: SODIUM CHLORIDE NASAL SPRAY 44 ML BOTTLE NS SCH ×2 (09:27→22:44)
[2021-06-30 09:50] LABS: CHLORIDE 100 mmol/L (98-107); SODIUM 133 mmol/L (136-145)
[2021-06-30 09:55] LABS: CALCIUM 8.7 mg/dL (8.5-10.1)
[2021-06-30 09:56] LABS: ANION GAP 11 MMOL/L (8-16); CO2 23 mmol/L (21-32); GLUCOSE,RANDOM 97 mg/dL (74-106)
[2021-06-30 09:59] LABS: CREATININE 3.1 mg/dL (0.55-1.3)
[2021-06-30 10:25] LABS: BLOOD UREA NITROGEN 106.5 mg/dL (7-18)
[2021-06-30] MEDS: HEPARIN NA (PORCINE) 5,000 UNITS/ML 1ML VIAL SQ SCH (11:01)
[2021-06-30] MEDS: clonazePAM 0.25 MG ODT TABLETS SL SCH ×2 (11:02→22:36)
[2021-06-30] MEDS ORDERED: SODIUM CHLORIDE 500 ML IV SCH (14:00)
[2021-06-30] MEDS: SODIUM ZIRCONIUM CYCLOSILICATE (LOKELMA) 5 GM PACKET PO SCH (16:49)
[2021-06-30] MEDS: PRAMIPEXOLE DIHYDROCHLORIDE 0.5 MG TABLET PO SCH (22:37)
[2021-06-30] MEDS: LIDOCAINE PATCH REMOVAL MC SCH (22:43)
[2021-07-01] MEDS: AMINO ACIDS/PROTEIN HYDROLYS 30 ML LIQUID.PKT PO SCH ×2 (08:14→17:38)
[2021-07-01] MEDS: FAMOTIDINE 20 MG TABLET PO SCH (08:59)
[2021-07-01] MEDS: ASPIRIN 81 MG CHEWABLE TABLETS PO SCH (08:59)
[2021-07-01 09:00] LABS: BASO % 0.9 % (0-2.0); EOS % 2.4 % (0-4.5); HEMATOCRIT 31.1 % (32.4-45.2); HEMOGLOBIN 10.2 GM/dL (10.7-15.3); LYMPH % 26.8 % (8-40); MCH 28.9 pg (25.7-33.7); MCHC 32.9 g/dl (32.0-36.0); MEAN CELL VOLUME 87.7 fl (80-96); MEAN PLT VOLUME 8.9 fl (7.5-11.1); NEUT % 61.9 % (42.8-82.8); PLATELET COUNT 260 10^3/uL (134-434); RBC 3.54 M/mm3 (3.60-5.2); RDW 15.2 % (11.6-15.6); WHITE BLOOD COUNT 8.3 K/mm3 (4.0-10.0)
[2021-07-01] MEDS: SODIUM ZIRCONIUM CYCLOSILICATE (LOKELMA) 5 GM PACKET PO SCH (09:00)
[2021-07-01] MEDS: clonazePAM 0.25 MG ODT TABLETS SL SCH (09:00)
[2021-07-01] MEDS: LIDOCAINE 5% TOPICAL PATCH TP SCH (09:00)
[2021-07-01] MEDS: POLYETHYLENE GLYCOL (HEALTHYLAX) 3350 17 GM PACKET PO SCH (09:00)
[2021-07-01] MEDS: BUDESONIDE/FORMETEROL FUMARATE 160/4.5 mcg INHALER IH SCH ×2 (09:01→21:03)
[2021-07-01] MEDS: PARoxetine HCL 20 MG TABLET PO SCH (09:01)
[2021-07-01] MEDS: SODIUM CHLORIDE NASAL SPRAY 44 ML BOTTLE NS SCH ×2 (09:02→21:02)
[2021-07-01] MEDS: NYSTATIN POWDER 100,000 UNITS/GM - 15 GM TOPICAL POWDER TP SCH ×2 (09:02→21:02)
[2021-07-01] MEDS: MULTIVITAMINS THER W-MINERALS COMBO TABLET (FP) PO SCH (09:02)
[2021-07-01] MEDS: CHOLECALCIFEROL (VIT D3) 1,000 UNIT (25 MCG) TABLET PO SCH (09:02)
[2021-07-01 09:29] LABS: CHLORIDE 102 mmol/L (98-107); SODIUM 136 mmol/L (136-145)
[2021-07-01 09:36] LABS: CALCIUM 8.8 mg/dL (8.5-10.1)
[2021-07-01 09:37] LABS: ALBUMIN 2.6 g/dl (3.4-5.0); ANION GAP 12 MMOL/L (8-16); CO2 22 mmol/L (21-32); GLUCOSE,RANDOM 86 mg/dL (74-106)
[2021-07-01 09:40] LABS: CREATININE 3.1 mg/dL (0.55-1.3); SGOT/AST 32 U/L (15-37); SGPT/ALT 21 U/L (13-61)
[2021-07-01 09:42] LABS: BILIRUBIN,TOTAL 0.5 mg/dL (0.2-1); TOT PROT 7.4 g/dl (6.4-8.2)
[2021-07-01 09:43] LABS: ALK PHOS 72 U/L (45-117)
[2021-07-01 09:48] LABS: BLOOD UREA NITROGEN 133.6 mg/dL (7-18)
[2021-07-01] MEDS ORDERED: DEXTROSE 5%-0.45% SALINE 1,000 ML IV SCH (11:45)
[2021-07-01] MEDS: LIDOCAINE PATCH REMOVAL MC SCH (21:02)
[2021-07-02] MEDS: SODIUM CHLORIDE 0.45% 1,000 ML IV SCH ×2 (02:59→13:38)
[2021-07-02] MEDS ORDERED: BENZOCAINE/MENTH/CETYLPYRD CL 1 EACH LOZENGE MM PRN (06:16)
[2021-07-02] MEDS: MULTIVITAMINS THER W-MINERALS COMBO TABLET (FP) PO SCH (09:01)
[2021-07-02] MEDS: CHOLECALCIFEROL (VIT D3) 1,000 UNIT (25 MCG) TABLET PO SCH (09:01)
[2021-07-02] MEDS: ASPIRIN 81 MG CHEWABLE TABLETS PO SCH (09:01)
[2021-07-02] MEDS: FAMOTIDINE 20 MG TABLET PO SCH (09:01)
[2021-07-02] MEDS: POLYETHYLENE GLYCOL (HEALTHYLAX) 3350 17 GM PACKET PO SCH (09:01)
[2021-07-02] MEDS: LIDOCAINE 5% TOPICAL PATCH TP SCH (09:03)
[2021-07-02] MEDS: AMINO ACIDS/PROTEIN HYDROLYS 30 ML LIQUID.PKT PO SCH ×2 (09:05→17:24)
[2021-07-02] MEDS: BUDESONIDE/FORMETEROL FUMARATE 160/4.5 mcg INHALER IH SCH ×2 (09:09→21:27)
[2021-07-02] MEDS: SODIUM CHLORIDE NASAL SPRAY 44 ML BOTTLE NS SCH ×2 (09:09→21:26)
[2021-07-02] MEDS: NYSTATIN POWDER 100,000 UNITS/GM - 15 GM TOPICAL POWDER TP SCH ×2 (09:10→21:26)
[2021-07-02 09:49] LABS: CHLORIDE 104 mmol/L (98-107); SODIUM 136 mmol/L (136-145)
[2021-07-02 09:57] LABS: ALBUMIN 2.5 g/dl (3.4-5.0); ANION GAP 5 MMOL/L (8-16); CALCIUM 8.1 mg/dL (8.5-10.1); CO2 26 mmol/L (21-32); GLUCOSE,RANDOM 94 mg/dL (74-106)
[2021-07-02 10:00] LABS: SGOT/AST 26 U/L (15-37); SGPT/ALT 22 U/L (13-61)
[2021-07-02 10:01] LABS: CREATININE 1.8 mg/dL (0.55-1.3)
[2021-07-02 10:02] LABS: BILIRUBIN,TOTAL 0.5 mg/dL (0.2-1); TOT PROT 7.1 g/dl (6.4-8.2)
[2021-07-02 10:03] LABS: ALK PHOS 68 U/L (45-117)
[2021-07-02 10:04] LABS: BLOOD UREA NITROGEN 119.7 mg/dL (7-18)
[2021-07-02] MEDS ORDERED: clonazePAM 0.25 MG ODT TABLETS SL PRN (10:46)
[2021-07-02] MEDS: NYSTATIN 500,000 UNITS/5 ML SUSPENSION PO SCH ×2 (13:32→17:24)
[2021-07-02] MEDS: HEPARIN NA (PORCINE) 5,000 UNITS/ML 1ML VIAL SQ SCH ×2 (13:32→21:26)
[2021-07-02] MEDS: GABAPENTIN 100 MG CAPSULE PO SCH ×2 (13:41→21:26)
[2021-07-02] MEDS ORDERED: SODIUM CHLORIDE 0.45% 1,000 ML IV SCH (17:20)
[2021-07-02] MEDS: ACETAMINOPHEN 325 MG TABLET (FP) PO PRN (21:25)
[2021-07-02] MEDS: LIDOCAINE PATCH REMOVAL MC SCH (21:26)
[2021-07-03] MEDS: NYSTATIN 500,000 UNITS/5 ML SUSPENSION PO SCH ×4 (00:24→17:00)
[2021-07-03] MEDS: AMINO ACIDS/PROTEIN HYDROLYS 30 ML LIQUID.PKT PO SCH ×2 (08:51→17:00)
[2021-07-03] MEDS: HEPARIN NA (PORCINE) 5,000 UNITS/ML 1ML VIAL SQ SCH ×2 (09:50→21:47)
[2021-07-03] MEDS: GABAPENTIN 100 MG CAPSULE PO SCH ×2 (09:50→21:47)
[2021-07-03] MEDS: CHOLECALCIFEROL (VIT D3) 1,000 UNIT (25 MCG) TABLET PO SCH (09:50)
[2021-07-03] MEDS: FAMOTIDINE 20 MG TABLET PO SCH (09:50)
[2021-07-03] MEDS: MULTIVITAMINS THER W-MINERALS COMBO TABLET (FP) PO SCH (09:50)
[2021-07-03] MEDS: ASPIRIN 81 MG CHEWABLE TABLETS PO SCH (09:50)
[2021-07-03] MEDS: POLYETHYLENE GLYCOL (HEALTHYLAX) 3350 17 GM PACKET PO SCH (09:50)
[2021-07-03 09:56] LABS: CREATININE 1.2 mg/dL (0.55-1.3)
[2021-07-03] MEDS: BUDESONIDE/FORMETEROL FUMARATE 160/4.5 mcg INHALER IH SCH ×2 (09:57→21:49)
[2021-07-03] MEDS: SODIUM CHLORIDE NASAL SPRAY 44 ML BOTTLE NS SCH ×2 (09:57→21:48)
[2021-07-03 09:58] LABS: CALCIUM 8.3 mg/dL (8.5-10.1)
[2021-07-03] MEDS: NYSTATIN POWDER 100,000 UNITS/GM - 15 GM TOPICAL POWDER TP SCH ×2 (09:58→21:48)
[2021-07-03 10:00] LABS: BLOOD UREA NITROGEN 81.6 mg/dL (7-18)
[2021-07-03] MEDS: LIDOCAINE 5% TOPICAL PATCH TP SCH (10:09)
[2021-07-03] MEDS ORDERED: SODIUM CHLORIDE 0.45% 1,000 ML IV SCH (14:04)
[2021-07-03] MEDS: LIDOCAINE PATCH REMOVAL MC SCH (21:48)
[2021-07-04] MEDS: NYSTATIN 500,000 UNITS/5 ML SUSPENSION PO SCH ×5 (00:16→23:00)
[2021-07-04] MEDS: AMINO ACIDS/PROTEIN HYDROLYS 30 ML LIQUID.PKT PO SCH ×2 (09:10→17:09)
[2021-07-04] MEDS: FAMOTIDINE 20 MG TABLET PO SCH (09:11)
[2021-07-04] MEDS: CHOLECALCIFEROL (VIT D3) 1,000 UNIT (25 MCG) TABLET PO SCH (09:11)
[2021-07-04] MEDS: MULTIVITAMINS THER W-MINERALS COMBO TABLET (FP) PO SCH (09:11)
[2021-07-04] MEDS: GABAPENTIN 100 MG CAPSULE PO SCH ×2 (09:11→21:07)
[2021-07-04] MEDS: ASPIRIN 81 MG CHEWABLE TABLETS PO SCH (09:11)
[2021-07-04] MEDS: HEPARIN NA (PORCINE) 5,000 UNITS/ML 1ML VIAL SQ SCH ×2 (09:12→21:07)
[2021-07-04] MEDS: POLYETHYLENE GLYCOL (HEALTHYLAX) 3350 17 GM PACKET PO SCH (09:12)
[2021-07-04] MEDS: LIDOCAINE 5% TOPICAL PATCH TP SCH (09:12)
[2021-07-04] MEDS: BUDESONIDE/FORMETEROL FUMARATE 160/4.5 mcg INHALER IH SCH ×2 (09:13→21:08)
[2021-07-04] MEDS: SODIUM CHLORIDE NASAL SPRAY 44 ML BOTTLE NS SCH ×2 (09:13→21:08)
[2021-07-04] MEDS: NYSTATIN POWDER 100,000 UNITS/GM - 15 GM TOPICAL POWDER TP SCH ×2 (09:15→21:08)
[2021-07-04 10:24] LABS: ALBUMIN 2.4 g/dl (3.4-5.0); CALCIUM 8.7 mg/dL (8.5-10.1)
[2021-07-04 10:26] LABS: BILIRUBIN,TOTAL 0.4 mg/dL (0.2-1); TOT PROT 7.1 g/dl (6.4-8.2)
[2021-07-04 10:27] LABS: CREATININE 0.9 mg/dL (0.55-1.3)
[2021-07-04 10:31] LABS: BLOOD UREA NITROGEN 55.3 mg/dL (7-18)
[2021-07-04] MEDS: PARoxetine HCL 10 MG TABLET PO SCH (12:03)
[2021-07-04] MEDS: ACETAMINOPHEN 325 MG TABLET (FP) PO PRN ×2 (12:16→23:00)
[2021-07-04] MEDS ORDERED: SODIUM ZIRCONIUM CYCLOSILICATE (LOKELMA) 5 GM PACKET PO ONE (14:52)
[2021-07-04] MEDS: LIDOCAINE PATCH REMOVAL MC SCH (21:08)
[2021-07-05] MEDS: NYSTATIN 500,000 UNITS/5 ML SUSPENSION PO SCH ×4 (05:12→23:31)
[2021-07-05] MEDS: GABAPENTIN 100 MG CAPSULE PO SCH ×2 (10:03→21:17)
[2021-07-05] MEDS: ASPIRIN 81 MG CHEWABLE TABLETS PO SCH (10:03)
[2021-07-05] MEDS: CHOLECALCIFEROL (VIT D3) 1,000 UNIT (25 MCG) TABLET PO SCH (10:03)
[2021-07-05] MEDS: MULTIVITAMINS THER W-MINERALS COMBO TABLET (FP) PO SCH (10:03)
[2021-07-05] MEDS: POLYETHYLENE GLYCOL (HEALTHYLAX) 3350 17 GM PACKET PO SCH (10:04)
[2021-07-05] MEDS: AMINO ACIDS/PROTEIN HYDROLYS 30 ML LIQUID.PKT PO SCH ×2 (10:04→17:43)
[2021-07-05] MEDS: LIDOCAINE 5% TOPICAL PATCH TP SCH (10:05)
[2021-07-05] MEDS: HEPARIN NA (PORCINE) 5,000 UNITS/ML 1ML VIAL SQ SCH ×2 (10:05→21:17)
[2021-07-05] MEDS: NYSTATIN POWDER 100,000 UNITS/GM - 15 GM TOPICAL POWDER TP SCH ×2 (10:07→21:17)
[2021-07-05] MEDS: SODIUM CHLORIDE NASAL SPRAY 44 ML BOTTLE NS SCH ×2 (10:08→21:18)
[2021-07-05] MEDS: FAMOTIDINE 20 MG TABLET PO SCH (10:11)
[2021-07-05] MEDS: PARoxetine HCL 10 MG TABLET PO SCH (10:13)
[2021-07-05] MEDS: BUDESONIDE/FORMETEROL FUMARATE 160/4.5 mcg INHALER IH SCH ×2 (10:14→21:18)
[2021-07-05] MEDS: ACETAMINOPHEN 325 MG TABLET (FP) PO PRN (18:28)
[2021-07-05] MEDS: LIDOCAINE PATCH REMOVAL MC SCH (21:17)
[2021-07-06] MEDS: NYSTATIN 500,000 UNITS/5 ML SUSPENSION PO SCH ×2 (05:19→12:27)
[2021-07-06 06:28] VITALS: TEMP 98.3
[2021-07-06 08:35] LABS: BASO % 1.1 % (0-2.0); EOS % 5.8 % (0-4.5); HEMATOCRIT 29.9 % (32.4-45.2); HEMOGLOBIN 9.9 GM/dL (10.7-15.3); LYMPH % 26.2 % (8-40); MEAN CELL VOLUME 87.8 fl (80-96); MEAN PLT VOLUME 8.5 fl (7.5-11.1); MONO % 7.2 % (3.8-10.2); NEUT % 59.7 % (42.8-82.8); PLATELET COUNT 301 10^3/uL (134-434); RBC 3.41 M/mm3 (3.60-5.2); RDW 15.3 % (11.6-15.6); WHITE BLOOD COUNT 8.3 K/mm3 (4.0-10.0)
[2021-07-06 08:59] LABS: CALCIUM 8.8 mg/dL (8.5-10.1)
[2021-07-06 09:00] LABS: ALBUMIN 2.4 g/dl (3.4-5.0); BLOOD UREA NITROGEN 45.8 mg/dL (7-18)
[2021-07-06 09:03] LABS: CREATININE 1.2 mg/dL (0.55-1.3)
[2021-07-06 09:05] LABS: BILIRUBIN,TOTAL 0.2 mg/dL (0.2-1); TOT PROT 6.7 g/dl (6.4-8.2)
[2021-07-06] MEDS: LIDOCAINE 5% TOPICAL PATCH TP SCH (09:58)
[2021-07-06] MEDS: POLYETHYLENE GLYCOL (HEALTHYLAX) 3350 17 GM PACKET PO SCH (09:58)
[2021-07-06] MEDS: AMINO ACIDS/PROTEIN HYDROLYS 30 ML LIQUID.PKT PO SCH (09:58)
[2021-07-06] MEDS: FAMOTIDINE 20 MG TABLET PO SCH (09:59)
[2021-07-06] MEDS: HEPARIN NA (PORCINE) 5,000 UNITS/ML 1ML VIAL SQ SCH (09:59)
[2021-07-06] MEDS: CHOLECALCIFEROL (VIT D3) 1,000 UNIT (25 MCG) TABLET PO SCH (09:59)
[2021-07-06] MEDS: MULTIVITAMINS THER W-MINERALS COMBO TABLET (FP) PO SCH (09:59)
[2021-07-06] MEDS: GABAPENTIN 100 MG CAPSULE PO SCH (09:59)
[2021-07-06] MEDS: PARoxetine HCL 10 MG TABLET PO SCH (09:59)
[2021-07-06] MEDS: ASPIRIN 81 MG CHEWABLE TABLETS PO SCH (09:59)
[2021-07-06] MEDS: SODIUM CHLORIDE NASAL SPRAY 44 ML BOTTLE NS SCH (10:00)
[2021-07-06] MEDS: NYSTATIN POWDER 100,000 UNITS/GM - 15 GM TOPICAL POWDER TP SCH (10:00)
[2021-07-06] MEDS: BUDESONIDE/FORMETEROL FUMARATE 160/4.5 mcg INHALER IH SCH (10:00)
[2021-07-06] MEDS: ACETAMINOPHEN 325 MG TABLET (FP) PO PRN (10:04)
[2021-07-06] MEDS ORDERED: SODIUM ZIRCONIUM CYCLOSILICATE (LOKELMA) 5 GM PACKET PO SCH ×2 (10:15→12:00)
[2021-07-06 14:52] VITALS: BP 113/52; PULSE 88
== END 2021-07-06 17:55 | disposition home health service (06) | DRG 291 ==
LOC: JER 05:43 → JERBED 06:35 → UNDOADMOB 06:35 → JERBED 06-22 13:51 → UNDOADMOB 06-22 13:51 → JERBED 06-22 14:33 → OBSVTOIN 06-22 14:33 → INTOOBSV 06-22 14:33 → J8W 06-23 11:25
PROVIDERS: ADMIT Internal Medicine; ATTEND Internal Medicine
DX: I13.0 Hypertensive heart and chronic kidney disease with heart failure and stage 1 through stage 4 chronic kidney disease, or unspecified chronic kidney disease (principal); I50.33 Acute on chronic diastolic (congestive) heart failure; N17.9 Acute kidney failure, unspecified; N39.0 Urinary tract infection, site not specified; Z16.12 Extended spectrum beta lactamase (ESBL) resistance; N13.30 Unspecified hydronephrosis; D72.829 Elevated white blood cell count, unspecified; E87.5 Hyperkalemia; J44.9 Chronic obstructive pulmonary disease, unspecified; K21.9 Gastro-esophageal reflux disease without esophagitis; N18.9 Chronic kidney disease, unspecified; E66.9 Obesity, unspecified; Z68.33 Body mass index [BMI] 33.0-33.9, adult; R07.9 Chest pain, unspecified; R60.9 Edema, unspecified; I25.10 Atherosclerotic heart disease of native coronary artery without angina pectoris; E78.5 Hyperlipidemia, unspecified; I87.2 Venous insufficiency (chronic) (peripheral); I44.7 Left bundle-branch block, unspecified
CPT/HCPCS: 36415; 71045-TC-FY; 72040-TC; 72100-TC-FY; 72125-TC; 72128-TC; 72131-TC; 73030-TC-RT-FY; 73523-TC-FY; 76775-TC; 76856-TC; 80048; 80053; 81003; 82550; 82553; 82570; 82803; 82962; 83880; 84300; 84443; 84484; 84540; 85025; 85027; 85610; 85730; 87081; 87086; 87186; 93005; 93010; 97116-GP; 97161-GP; 99285-25; C9803; J1644; U0003; U0005